=== PATIENT | male | born 1960 | race African-American/Black ===

== ENCOUNTER 2021-01-25 14:19 | Inpatient (IN) | payer MEDICAID ==
[~2021-01-25] VITALS: Ht 182.9 cm; Wt 81.6 kg
[2021-01-25 15:08] VITALS: BP 119/72
--- NOTE | 2021-01-25 15:10 | Diagnostic Imaging Report ---
Indication: Shortness of breath Technique: XRAY Chest 1v Comparison: None Findings: Heart size and mediastinal contours are within normal limits for AP technique. There is no focal airspace consolidation, pneumothorax or pleural effusion. Degenerative changes in the spine. Osseous structures demonstrate no acute abnormality. Impression: No radiographic evidence of acute cardiopulmonary disease.
[2021-01-25 15:11] LABS: BASOPHILS % (AUTO) 1.8 % (0.0-2.0); EOSINOPHILS % (AUTO) 0.1 % (0.0-3.0); HEMATOCRIT 35.1 % (42.0-52.0); LYMPHOCYTES % (AUTO) 10.1 % (20.0-45.0); MEAN CORPUSCULAR VOLUME 83 FL (80-99); MONOCYTES % (AUTO) 7.1 % (1.0-10.0); NEUTROPHILS % (AUTO) 80.9 % (45.0-75.0); PLATELET COUNT 210 K/UL (150-450); RED BLOOD COUNT 4.23 M/UL (4.70-6.10); RED CELL DISTRIBUTION WIDTH 13.4 % (11.6-14.8); WHITE BLOOD COUNT 11.3 K/UL (4.8-10.8)
[2021-01-25 15:19] LABS: INR 0.9 (0.9-1.1)
[2021-01-25 15:45] LABS: ALANINE AMINOTRANSFERASE 33 U/L (12-78); ALBUMIN 4.1 G/DL (3.4-5.0); ALBUMIN/GLOBULIN RATIO 1.1 (1.0-2.7); ALKALINE PHOSPHATASE 95 U/L (46-116); ANION GAP 13 mmol/L (5-15); ASPARTATE AMINO TRANSFERASE 9 U/L (15-37); BILIRUBIN,TOTAL 0.2 MG/DL (0.2-1.0); CALCIUM 10.4 MG/DL (8.5-10.1); CARBON DIOXIDE 24 MMOL/L (21-32); CHLORIDE 111 MMOL/L (98-107); CREATINE KINASE 98 U/L (26-308); CREATININE 1.5 MG/DL (0.55-1.30); POTASSIUM 3.9 MMOL/L (3.5-5.1); SODIUM 148 MMOL/L (136-145)
[2021-01-25 15:59] VITALS: BP 126/81
--- NOTE | 2021-01-25 16:03 | Emergency Room Report ---
History of Present Illness General Chief Complaint: Altered Mental Status Present Illness HPI Disclaimer: Please note that this report is being documented using [employer] technology. This can lead to erroneous entry secondary to incorrect interpretation by the dictating instrument. HPI: 60-year-old male denies any past medical history presents from a grocery store. Apparently patient was found stumbling and then face down at the grocery store. He denies any headache chest pain shortness of breath or abdominal pain. He does not recall falling. He is alert and oriented x2 on arrival. Presented by EMS. Allergies: Coded Allergies: No Known Allergies (Unverified , 01/25/21) COVID-19 Screening Contact w/high risk pt: No Experienced COVID-19 symptoms?: No COVID-19 Testing performed IT APPLICATION SUPPORT ANALYST: No Patient History Reviewed Nursing Documentation: PMH: Agreed; PSxH: Agreed Review of Systems All Other Systems: negative except mentioned in HPI Physical Exam Vital Signs Date Time Temp Pulse Resp B/P (MAP) Pulse Ox O2 Delivery O2 Flow Rate FiO2 01/25/21 14:32 98.1 122 18 145/92 (109) 98 Room Air Sp02 EP Interpretation: reviewed, normal General Appearance: well appearing, no apparent distress Head: normocephalic, other - Abrasion noted to face Eyes: bilateral eye PERRL, bilateral eye EOMI ENT: hearing grossly normal, moist mucus membranes, other - Dried blood noted in mouth Neck: full range of motion, supple Respiratory: lungs clear, normal breath sounds, no rhonchi, no respiratory distress, no retraction, no wheezing Cardiovascular #1: normal peripheral pulses, no murmur, tachycardia Gastrointestinal: non tender, soft, non-distended, no guarding Neurologic: alert, no focal defects, other - Oriented x2, moves all extremities equally, no focal neurologic deficits noted Skin: normal color, warm/dry, other - Patient's the bilateral knees Medical Decision Making ER Course MDM: Differential included but not limited to dehydration, diabetic hyperglycemia, electrolyte disturbance, syncope, closed head injury, Clinical course-IV cardiac monitoring pulse oximetry. Patient placed on 2 L nasal cannula. He was given IV fluid bolus. Laboratory studies demonstrated hyperglycemia with mild lactic acidosis, suspect some element of dehydration. H emoglobin was stable. Urine was negative for infection. Urine drug screen negative, alcohol negative. EKG showed sinus tachycardia. Unfortunately patient is a poor historian and denies any past medical history. His presentation most likely secondary to undiagnosed diabetes mellitus with dehydration and hyperglycemia. Will place on the telemetry floor for further observation and treatment. Patient given IV insulin in the ER. I did do a CT angiogram of the chest to evaluate for any PE and was grossly negative. CT scan of the brain showed no acute hemorrhage or infarct. Chest x-ray showed no acute infiltrate. Patient admitted under Dr. Andujar Labs - Laboratory Tests Test 01/25/21 14:50 01/25/21 14:55 01/25/21 16:46 01/25/21 16:47 White Blood Count 11.3 K/UL (4.8-10.8) H Red Blood Count 4.23 M/UL (4.70-6.10) L Hemoglobin 11.0 G/DL (14.2-18.0) L Hematocrit 35.1 % (42.0-52.0) L Mean Corpuscular Volume 83 FL (80-99) Mean Corpuscular Hemoglobin 26.1 PG (27.0-31.0) L Mean Corpuscular Hemoglobin Concent 31.4 G/DL (32.0-36.0) L Red Cell Distribution Width 13.4 % (11.6-14.8) Platelet Count 210 K/UL (150-450) Mean Platelet Volume 7.6 FL (6.5-10.1) Neutrophils (%) (Auto) 80.9 % (45.0-75.0) H Lymphocytes (%) (Auto) 10.1 % (20.0-45.0) L Monocytes (%) (Auto) 7.1 % (1.0-10.0) Eosinophils (%) (Auto) 0.1 % (0.0-3.0) Basophils (%) (Auto) 1.8 % (0.0-2.0) Prothrombin Time 10.5 SEC (9.30-11.50) Prothrombin Time INR 0.9 (0.9-1.1) Activated Partial Thromboplast Time 21 SEC (23-33) L Sodium Level 148 MMOL/L (136-145) H Potassium Level 3.9 MMOL/L (3.5-5.1) Chloride Level 111 MMOL/L (98-107) H Carbon Dioxide Level 24 MMOL/L (21-32) Anion Gap 13 mmol/L (5-15) Blood Urea Nitrogen 31 mg/dL (7-18) H Creatinine 1.5 MG/DL (0.55-1.30) H Estimated Glomerular Filtration Rate 57.4 mL/min (>60) Glucose Level 443 MG/DL (74-106) H Lactic Acid Level 3.00 mmol/L (0.4-2.0) H Calcium Level 10.4 MG/DL (8.5-10.1) H Magnesium Level 2.6 MG/DL (1.8-2.4) H Total Bilirubin 0.2 MG/DL (0.2-1.0) Aspartate Amino Transferase (AST) 9 U/L (15-37) L Alanine Aminotransferase (ALT) 33 U/L (12-78) Alkaline Phosphatase 95 U/L (46-116) Total Creatine Kinase 98 U/L (26-308) Troponin I 0.005 ng/mL (0.000-0.056) Total Protein 7.7 G/DL (6.4-8.2) Albumin 4.1 G/DL (3.4-5.0) Globulin 3.6 g/dL Albumin/Globulin Ratio 1.1 (1.0-2.7) Serum Alcohol < 3 mg/dL POC Whole Blood Glucose Pending Pending Urine Color Pale yellow Urine Appearance Clear Urine pH 5 (4.5-8.0) Urine Specific [place] 1.015 (1.005-1.035) Urine Protein Negative (NEGATIVE) Urine Glucose (UA) 4+ (NEGATIVE) H Urine Ketones 1+ (NEGATIVE) H Urine Blood Negative (NEGATIVE) Urine Nitrite Negative (NEGATIVE) Urine Bilirubin Negative (NEGATIVE) Urine Urobilinogen Normal MG/DL (0.0-1.0) Urine Leukocyte Esterase Negative (NEGATIVE) Urine Opiates Screen Negative (NEGATIVE) Urine Barbiturates Screen Negative (NEGATIVE) Phencyclidine (PCP) Screen Negative (NEGATIVE) Urine Amphetamines Screen Negative (NEGATIVE) Urine Benzodiazepines Screen Negative (NEGATIVE) Urine Cocaine Screen Negative (NEGATIVE) Urine Marijuana (THC) Screen Negative (NEGATIVE) On reevaluation: Tachycardia improved Plan-admission to the telemetry floor EKG Diagnostic Results Rate: tachycardiac Rhythm: other - Sinus tachycardia ST Segments: no acute changes Rhythm Strip Diag. Results EP Interpretation: yes Rate: 112 Rhythm: no PVC's, no ectopy Chest X-Ray Diagnostic Results Chest X-Ray Diagnostic Results : # of Views/Limited/Complete: 1 View Indication: Shortness of Breath Interpretation: no consolidation, no effusion, no pneumothorax Impression: No acute disease Electronically Signed by: Emanuel Choi MD CT/MRI/US Diagnostic Results CT/MRI/US Diagnostic Results #1: Imaging Test Ordered: CT scan of the brain Impression No acute hemorrhage or infarct CT/MRI/US Diagnostic Results #2: Imaging Test Ordered: CT angio chest Impression IMPRESSION: No PE within limits due to motion. Extensive coronary atherosclerosis. Emphysema. Subcentimeter nodules along the left oblique fissure. Recommend follow-up CT in 6-12 months. 1 cm hypodensity in the pancreatic body-tail measures near water density, likely cystic. Nonemergent MRI could further assess. Last Vital Signs Date Time Temp Pulse Resp B/P (MAP) Pulse Ox O2 Delivery O2 Flow Rate FiO2 01/25/21 15:08 99.0 122 22 119/72 89 Room Air Disposition: ADMITTED INPATIENT Condition: Serious Scripts Unable to Obtain Active Prescriptions or Reported Meds Referrals: NOT CHOSEN IPA/,REFERRING (PCP) Emanuel Choi M.D. Jan 25, 2021 16:03
--- NOTE | 2021-01-25 16:04 | Diagnostic Imaging Report ---
Indication: Altered mental status Technique: Continuous helical CT scanning of the head was performed utilizing automated exposure control without intravenous contrast material. Axial and coronal reconstructions were obtained. Comparison: None CT dose: Total DLP 999.2 mGycm; CTDI vol 53.4 mGy Findings: There is no acute intracranial hemorrhage, mass effect or cortical edema. The ventricles, cisterns and sulci are prominent consistent with atrophy. Periventricular hypoattenuation is seen, a nonspecific finding. Chronic-appearing infarct in the left superior caudate. Visualized mastoid air cells and paranasal sinuses are unremarkable. No focal lesions of the bony calvarium or soft tissues of the scalp are seen. IMPRESSION: No evidence of acute intracranial hemorrhage, mass effect or cortical edema. MRI recommended for more sensitive evaluation as clinically indicated. Atrophy and nonspecific periventricular hypoattenuation suggestive of chronic ischemic microvascular changes. Chronic appearing lacunar infarct in the left superior caudate. The CT scanner at [facility] is accredited by the [employer] and the scans are performed using protocols designed to limit radiation exposure to as low as reasonably achievable to attain images of sufficient resolution adequate for diagnostic evaluation.
[2021-01-25 16:23] LABS: BLOOD UREA NITROGEN 31 mg/dL (7-18)
[2021-01-25 16:48] VITALS: BP 144/80
[2021-01-25 17:30] LABS: APPEARANCE,URINE CLEAR; BILIRUBIN, URINE NEGATIVE (NEGATIVE); COLOR,URINE PALE YELLOW; GLUCOSE, URINE (UA) 4+ (NEGATIVE); KETONES,URINE 1+ (NEGATIVE); LEUKOCYTE ESTERASE ,URINE NEGATIVE (NEGATIVE); NITRITE,URINE NEGATIVE (NEGATIVE); PH,URINE 5 (4.5-8.0); PROTEIN,URINE NEGATIVE (NEGATIVE); UROBILINOGEN,URINE NORMAL MG/DL (0.0-1.0)
[2021-01-25] MEDS ORDERED: Insulin Human Regular 100units/ml 3ml IV ONE (17:30)
--- NOTE | 2021-01-25 18:58 | Diagnostic Imaging Report ---
EXAM: CT Angiography Chest With Intravenous Contrast CLINICAL HISTORY: SOB TECHNIQUE: Axial computed tomographic angiography images of the chest with intravenous contrast. CTDI is 8.1 mGy and DLP is 331.4 mGy-cm. One or more of the following dose reduction techniques were used: automated exposure control, adjustment of the mA and/or kV according to patient size, use of iterative reconstruction technique. MIP reconstructed images were created and reviewed. COMPARISON: No relevant prior studies available. FINDINGS: No clear PE on exam that is mildly limited by bolus timing. Mild aortic atherosclerosis. No dissection or other acute syndrome. No aneurysm. Extensive coronary atherosclerosis. No significant pericardial or pleural effusion. No pneumothorax. Nodules along the left oblique fissure, largest measuring 6 mm on series 9, image 69. Recommend follow-up CT in 6-12 months. Subsegmental basilar atelectasis. Emphysema. No inflammatory/infectious consolidation. Upper pole right renal hypodensities incompletely assessed, but most likely a cyst. 1 cm hypodensity in the pancreatic body-tail on series 5, image 23. This measures near water density, likely cystic. Nonemergent MRI could further assess. Chronic right rib deformities. No acute fracture. IMPRESSION: No PE within limits due to motion. Extensive coronary atherosclerosis. Emphysema. Subcentimeter nodules along the left oblique fissure. Recommend follow-up CT in 6-12 months. 1 cm hypodensity in the pancreatic body-tail measures near water density, likely cystic. Nonemergent MRI could further assess.
[2021-01-25] MEDS ORDERED: Acetaminophen 500mg (ES) tab ORAL PRN (21:15)
[2021-01-25] MEDS: NovoLOG Insulin Flexpen SUBQ SCH (23:27)
[2021-01-26] VITALS: BP 145/92
[2021-01-26 04:00] VITALS: BP 142/87
[2021-01-26] MEDS: NovoLOG Insulin Flexpen SUBQ SCH ×4 (06:22→20:25)
[2021-01-26] MEDS: GlipiZIDE 5mg tab ORAL SCH ×2 (06:25→17:34)
[2021-01-26 08:00] VITALS: BP 154/97
--- NOTE | 2021-01-26 10:17 | Consultation ---
Consult Note Consult Note I'm asked to evaluate the patient at the request of Dr. Woodard for renal failure and fluid and electrolyte management Chief Complaint: Altered Mental Status HPI: 60-year-old male denies any past medical history presents from a grocery store. Apparently patient was found stumbling and then face down at the grocery store. He denies any headache chest pain shortness of breath or abdominal pain. He does not recall falling. He is alert and oriented x2 on arrival. Presented by EMS. Allergies: No Known Allergies (Unverified , 01/25/21) COVID-19 Screening Contact w/high risk pt: No Experienced COVID-19 symptoms?: No COVID-19 Testing performed HEAVY TRUCK TECHNICIAN: No Vital Signs ER: Date Time Temp Pulse Resp B/P (MAP) Pulse Ox O2 Delivery O2 Flow Rate FiO2 01/25/21 14:32 98.1 122 18 145/92 (109) 98 Room Air PHYSICAL EXAMINATION: VITAL SIGNS: Temperature 97.9, pulse 99, blood pressure 154/97. GENERAL APPEARANCE: Well developed, in no acute distress. HEAD AND NECK: Has bruise in the left eye. HEART: Normal rate. LUNGS: Clear. ABDOMEN: Soft. EXTREMITIES: No significant edema. NEUROLOGIC: He is awake, alert, responsive. LABORATORY AND DIAGNOSTIC DATA: Sodium 148, potassium 3.9, chloride 111, bicarb 24, BUN 31, creatinine 1.5, glucose is 443. WBC 11.3, hemoglobin 11, hematocrit 35.1, platelets 210. Blood culture growing gram-positive cocci in cluster. Patient had CT angiogram of the chest that showed no pulmonary emboli, showed emphysema. Has 1 cm pancreatic lesion, likely cyst. Urine toxicology was negative. UA showed ketones 1+, glucose 4+. . Assessment/Plan Renal failure Acute encephalopathy, likely metabolic Diabetes mellitus [id number] Electrolyte imbalance Hypertension Anemia Suggestions Hydration with hypotonic solution Keep the blood pressure and blood sugar in check Anemia work-up Start aspirin, beta-blockers, gastric support PPI and stool softener Per orders Head CT: Atrophy and nonspecific periventricular hypoattenuation suggestive of chronic ischemic microvascular changes. CT chest with contrast No PE within limits due to motion. Extensive coronary atherosclerosis. Emphysema. Subcentimeter nodules along the left oblique fissure. Recommend follow-up CT in 6-12 months. 1 cm hypodensity in the pancreatic body-tail measures near water density, likely cystic. Nonemergent MRI could further assess. Jorje Paz MD Jan 26, 2021 10:17
--- NOTE | 2021-01-26 10:31 | Consultation ---
Consult Note Consult Note DATE OF CONSULTATION: 01/26/2021 CONSULTING PHYSICIAN: Marv Chen MD. ATTENDING PHYSICIAN: Dr. Andujar REASON FOR CONSULTATION: Respiratory distress on arrival, altered mental status and risk of aspiration, abnormal CT of chest HISTORY OF PRESENT ILLNESS: This is a 60-year-old male with no reported past medical history who presented to the ED from a grocery stroller status post fall. Apparently patient was found stumbling and then face down at the grocery store. Patient was alert and oriented x2 on arrival. Patient was placed on 2 L nasal cannula in the ER and was given IV fluid bolus. Laboratory studies demonstrated hyperglycemia with mild lactic acidosis. Urine was negative for infection. Urine drug screen was negative, alcohol negative. CT angiogram of the chest was negative for PE. CT of brain showed no acute hemorrhage or infarct. Chest x-ray showed no acute infiltrate. Patient was admitted to the hospital for further management. PAST MEDICAL HISTORY: Unreliable MEDICATIONS: Full list of home medications not available at this time ALLERGIES: No known allergies FAMILY HISTORY: Unreliable PERSONAL/SOCIAL HISTORY: Patient reports smoking history, quit 6 years ago REVIEW OF SYSTEMS: Unreliable PHYSICAL EXAMINATION: VITAL SIGNS: Blood pressure 154/97, heart rate 99, respiratory rate 20, weight 81 kg, height 182 cm. General: Patient sitting on a chair outside of his room, normal work of breathing on room air, NAD HEENT: Head exam reveals that the head is normocephalic, atraumatic without deformity or unusual swelling. Pupils are PERRLA. Dried blood noted in the mouth, abrasion and contusion noted on the left face CHEST AND LUNGS: Reveals clear, normal, symmetrical breath sounds with no adventitious sounds. CARDIOVASCULAR: Reveals normal S1, S2 without murmurs, rubs, or clicks. ABDOMEN: Soft with no tenderness or organomegaly. RECTAL: Deferred. MUSCULOSKELETAL: There is no tenderness to palpation. Range of motion is normal. NEUROLOGICAL: Alert and oriented x2, nonfocal LABORATORY DATA: Laboratory testing shows WBC 11.3, hemoglobin 11.0, hematocrit 35.1. Chemistries show sodium 148, chloride 111, BUN 31, creatinine 1.5, glucose 443, calcium 10.4, magnesium 2.6 Assessment/Plan 1. Hypoxic respiratory distress on arrival -Now stable on room air; provide supplemental oxygen as needed 2. Lung nodules on CT -Subcentimeter nodules -> based on the size, recommend a follow-up CT chest in 6-12 months per Fleischner Society guidelines 3. Emphysematous changes on CT chest - patient reports smoking history, quit 6 years ago - Patient educated on smoking cessation 4. CARRIE 5. Hyperglycemia 6. Risk of aspiration - monitor for fever - f/u CXR if indicated The care for this patient was discussed with my supervising physician. Time spent for this case was approximately 31 minutes. Stephane Palacios Jan 26, 2021 10:31
--- NOTE | 2021-01-26 10:38 | Consultation ---
Consult Note Consult Note DATE OF CONSULTATION: 01/26/2021 NEUROLOGY CONSULTATION REQ MD: Dr. Andujar REASON FOR REFERRAL: Syncope HPI: This is a pleasant 60 year old AA male patient who is seated at the nursing station. He is alert to his name and is confused to time, and place, he remembers fallling down. He states that he lives with his Mother Ruth Bedoya and gave me her number however number is disconnected and no number on file. RN also has no number for contact. He [place] [facility] [place] down at the supermarket. It was reported that he had a syncopal episode, however the details are unknown. Pt is a poor historian and most of the information was obtained from the chart and the bedside RN.We were consulted for syncope. He denies headache, dizzziness, chest pain and no sob. Past Medical history: Diabetes Past Surgery History: Unknown Family History: Unknown Social History: Lives with mother? ROS A 14 point review of system done pertinent positives in hpi PE Vital signs stable Left Orbit abrasion General: No acute distress calm and cooperative Neuro: Awake Alert to himself disoriented to place and time No insight to situation, Comprehension: not intact. Language parameters intact. Cranial nerves II-XII tested PERRLA, No nystagmus with gaze. No facial droop or asymmetry noted Tongue is midline. Hearing intact Motor: No involuntary movements, Bilat upper extremities 3/5, lower extremities 3/5 Sensation intact. gait not assessed LAB Reviewed IMAGING: CT Head: No evidence of acute intracranial hemorrhage, mass effect or cortical edema. MRI recommended for more sensitive evaluation as clinically indicated. Atrophy and nonspecific periventricular hypoattenuation suggestive of chronic ischemic microvascular changes. Chronic appearing lacunar infarct in the left superior caudate. ASSESSMENT AND REC'S 1. Old lacunar Infarct --> CT head noted, will get MRI Brain and MRA Head and Neck 2. AMS, unknown etiology --> CT head noted as above --> urine tox screen , get socail worker eval to contact mother for more history. 3. Fall --> unknown etiology, order pt and ot 4. Questionable Syncope --> was found down at the grocery store. 5. Diabetes Thank you for allowing us to participate in patient's care, plan of care was discussed with Dr. Jeff White who agrees. Delores Rivera AMUSEMENT PARK ENTERTAINER Jan 26, 2021 10:38
[2021-01-26] MEDS: Aspirin Baby 81mg ORAL SCH (10:43)
[2021-01-26 11:09] LABS: ALANINE AMINOTRANSFERASE 34 U/L (12-78); ALBUMIN 3.4 G/DL (3.4-5.0); ALBUMIN/GLOBULIN RATIO 1.1 (1.0-2.7); ALKALINE PHOSPHATASE 81 U/L (46-116); ANION GAP 10 mmol/L (5-15); ASPARTATE AMINO TRANSFERASE 12 U/L (15-37); BILIRUBIN,TOTAL 0.3 MG/DL (0.2-1.0); BLOOD UREA NITROGEN 14 mg/dL (7-18); CARBON DIOXIDE 24 MMOL/L (21-32); CHLORIDE 109 MMOL/L (98-107); CREATININE 0.9 MG/DL (0.55-1.30); POTASSIUM 3.6 MMOL/L (3.5-5.1); SODIUM 143 MMOL/L (136-145)
--- NOTE | 2021-01-26 11:19 | Cardiac Electrophysiology PN ---
Subjective Subjective [id number] Objective Last 24 Hour Vital Signs Date Time Temp Pulse Resp B/P (MAP) Pulse Ox O2 Delivery O2 Flow Rate FiO2 01/26/21 10:43 99 154/97 01/26/21 09:00 Room Air 01/26/21 08:00 97.5 99 20 154/97 (116) 97 01/26/21 07:41 105 01/26/21 04:00 98.1 99 20 142/87 (105) 97 01/26/21 04:00 99 01/26/21 00:00 97.9 102 22 145/92 (109) 97 01/26/21 00:00 95 01/25/21 21:00 Room Air 01/25/21 20:05 Room Air 01/25/21 20:00 114 01/25/21 16:48 108 20 144/80 97 Nasal Cannula 2.0 01/25/21 15:59 112 20 126/81 100 Nasal Cannula 3.0 01/25/21 15:08 99.0 122 22 119/72 89 Room Air 01/25/21 15:00 118 22 Room Air 89 01/25/21 14:32 98.1 122 18 145/92 (109) 98 Room Air Intake and Output 01/25/21 01/26/21 19:00 07:00 Intake Total 2400 ml Output Total 600 ml 700 ml Balance 1800 ml -700 ml IV Total 2400 ml Output Urine Total 600 ml 700 ml # Voids 2 Laboratory Tests Test 01/25/21 14:50 01/25/21 14:55 01/25/21 16:46 01/25/21 16:47 White Blood Count 11.3 K/UL (4.8-10.8) H Red Blood Count 4.23 M/UL (4.70-6.10) L Hemoglobin 11.0 G/DL (14.2-18.0) L Hematocrit 35.1 % (42.0-52.0) L Mean Corpuscular Volume 83 FL (80-99) Mean Corpuscular Hemoglobin 26.1 PG (27.0-31.0) L Mean Corpuscular Hemoglobin Concent 31.4 G/DL (32.0-36.0) L Red Cell Distribution Width 13.4 % (11.6-14.8) Platelet Count 210 K/UL (150-450) Mean Platelet Volume 7.6 FL (6.5-10.1) Neutrophils (%) (Auto) 80.9 % (45.0-75.0) H Lymphocytes (%) (Auto) 10.1 % (20.0-45.0) L Monocytes (%) (Auto) 7.1 % (1.0-10.0) Eosinophils (%) (Auto) 0.1 % (0.0-3.0) Basophils (%) (Auto) 1.8 % (0.0-2.0) Prothrombin Time 10.5 SEC (9.30-11.50) Prothromb Time International Ratio 0.9 (0.9-1.1) Activated Partial Thromboplast Time 21 SEC (23-33) L Sodium Level 148 MMOL/L (136-145) H Potassium Level 3.9 MMOL/L (3.5-5.1) Chloride Level 111 MMOL/L (98-107) H Carbon Dioxide Level 24 MMOL/L (21-32) Anion Gap 13 mmol/L (5-15) Blood Urea Nitrogen 31 mg/dL (7-18) H Creatinine 1.5 MG/DL (0.55-1.30) H Estimat Glomerular Filtration Rate 57.4 mL/min (>60) Glucose Level 443 MG/DL (74-106) H Lactic Acid Level 3.00 mmol/L (0.4-2.0) H Calcium Level 10.4 MG/DL (8.5-10.1) H Magnesium Level 2.6 MG/DL (1.8-2.4) H Total Bilirubin 0.2 MG/DL (0.2-1.0) Aspartate Amino Transf (AST/SGOT) 9 U/L (15-37) L Alanine Aminotransferase (ALT/SGPT) 33 U/L (12-78) Alkaline Phosphatase 95 U/L (46-116) Total Creatine Kinase 98 U/L (26-308) Troponin I 0.005 ng/mL (0.000-0.056) Total Protein 7.7 G/DL (6.4-8.2) Albumin 4.1 G/DL (3.4-5.0) Globulin 3.6 g/dL Albumin/Globulin Ratio 1.1 (1.0-2.7) Serum Alcohol < 3 mg/dL POC Whole Blood Glucose Pending Pending Urine Color Pale yellow Urine Appearance Clear Urine pH 5 (4.5-8.0) Urine Specific [place] 1.015 (1.005-1.035) Urine Protein Negative (NEGATIVE) Urine Glucose (UA) 4+ (NEGATIVE) H Urine Ketones 1+ (NEGATIVE) H Urine Blood Negative (NEGATIVE) Urine Nitrite Negative (NEGATIVE) Urine Bilirubin Negative (NEGATIVE) Urine Urobilinogen Normal MG/DL (0.0-1.0) Urine Leukocyte Esterase Negative (NEGATIVE) Urine Opiates Screen Negative (NEGATIVE) Urine Barbiturates Screen Negative (NEGATIVE) Phencyclidine (PCP) Screen Negative (NEGATIVE) Urine Amphetamines Screen Negative (NEGATIVE) Urine Benzodiazepines Screen Negative (NEGATIVE) Urine Cocaine Screen Negative (NEGATIVE) Urine Marijuana (THC) Screen Negative (NEGATIVE) Test 01/26/21 09:20 01/26/21 11:00 Sodium Level 143 MMOL/L (136-145) Potassium Level 3.6 MMOL/L (3.5-5.1) Chloride Level 109 MMOL/L (98-107) H Carbon Dioxide Level 24 MMOL/L (21-32) Anion Gap 10 mmol/L (5-15) Blood Urea Nitrogen 14 mg/dL (7-18) Creatinine 0.9 MG/DL (0.55-1.30) Estimat Glomerular Filtration Rate > 60 mL/min (>60) Glucose Level 414 MG/DL (74-106) H Hemoglobin A1c 11.8 % (4.3-6.0) H Pending Calcium Level 9.0 MG/DL (8.5-10.1) Total Bilirubin 0.3 MG/DL (0.2-1.0) Aspartate Amino Transf (AST/SGOT) 12 U/L (15-37) L Alanine Aminotransferase (ALT/SGPT) 34 U/L (12-78) Alkaline Phosphatase 81 U/L (46-116) Total Protein 6.5 G/DL (6.4-8.2) Albumin 3.4 G/DL (3.4-5.0) Globulin 3.1 g/dL Albumin/Globulin Ratio 1.1 (1.0-2.7) Uric Acid Pending Triglycerides Level Pending Cholesterol Level Pending LDL Cholesterol Pending HDL Cholesterol Pending Cholesterol/HDL Ratio Pending Microbiology Date/Time Source Procedure Growth Status 01/25/21 14:55 Blood Blood Culture - Preliminary Resulted Massimo Escobar MD Jan 26, 2021 11:19
[2021-01-26 11:30] LABS: CHOLESTEROL 159 MG/DL (< 200); HDL CHOLESTEROL 35 MG/DL (40-60); TRIGLYCERIDES 177 MG/DL (30-150)
[2021-01-26 12:00] VITALS: BP 125/75
[2021-01-26] MEDS: Docusate 100mg cap ORAL SCH ×2 (12:00→17:13)
--- NOTE | 2021-01-26 12:29 | Consultation ---
DATE OF CONSULTATION: 01/26/2021 ENDOCRINOLOGY CONSULTATION CONSULTING PHYSICIAN: Cholo Solano MD REFERRING PHYSICIAN: Tylor Andujar MD REASON FOR CONSULTATION: Diabetes management. HISTORY OF PRESENT ILLNESS: The patient is a 60-year-old male without any past medical history who presented to the hospital after he was found down at a grocery store . The patient was brought in by paramedics, was noted to have a glucose of 443 and lactic acid of 3. He was given IV fluid and IV insulin and admitted to the floor for observation and treatment. There was no evidence of ketoacidosis. The patient denies a history of diabetes. He is not taking any medications. He is a poor historian and somnolent. PAST MEDICAL HISTORY: None. PAST SURGICAL HISTORY: None. ALLERGIES TO MEDICATIONS: None. FAMILY HISTORY: Noncontributory. SOCIAL HISTORY: Denies smoking, alcohol, or drug use. REVIEW OF SYSTEMS: Limited. As noted in the HPI. LABORATORY VALUES: His sodium 148, potassium 3.9, chloride 111, bicarb 24, BUN 31, creatinine 1.5, glucose of 442, lactic acid 3, calcium 10.4, and magnesium of 2.6. PHYSICAL EXAMINATION: VITAL SIGNS: Blood pressure 142/87, pulse of 99, temperature 98.1, respiratory rate of 20. HEENT: Pupils are equal and reactive to light. Sclerae nonicteric. NECK: No JVD. HEART: Regular. LUNGS: Clear. ABDOMEN: Positive bowel sounds. EXTREMITIES: No clubbing, cyanosis, or edema. DIAGNOSES: 1. New-onset diabetes. 2. Lactic acidosis. PLAN: 1. We can't start metformin since the patient's lactic acid is already high. 2. Start Glipizide 5 mg b.i.d. 3. Diabetic diet. 4. NovoLog sliding scale a.c. and at bedtime. 5. Hypoglycemia protocol is in order. 6. Check hemoglobin A1c. 7. Further adjustment according to the glucose. Thank you, Dr. Andujar, for the courtesy of this consultation. Cholo Solano M.D. DR: REMY/n JOB#: [id number] CC: BOYD
[2021-01-26] MEDS ORDERED: Vancomycin 1.5gm/300ml Premix IVPB ONE (13:00)
[2021-01-26 15:49] VITALS: BP 156/88
--- NOTE | 2021-01-26 17:26 | Diagnostic Imaging Report ---
EXAM: MRI MRI Brain no Contrast COMPARISON: None HISTORY: Confusion. TECHNIQUE: MR scan of the brain includes sagittal T1, axial T1, T2, FLAIR, diffusion-weighted and gradient sequences. FINDINGS: Mild white matter microangiopathic changes noted. There are old tiny lacunar infarcts noted in the basal ganglia bilaterally. No acute infarct is noted. On gradient sequence, there are 2 tiny punctate foci of susceptibility artifact is noted in the arita radiata bilaterally. These may be tiny foci of old petechial hemorrhages. Ventricles and cisterns appear unremarkable. Brainstem and posterior fossa appear unremarkable. The sella and parasellar regions are normal. Normal flow voids identified in the carotid siphons. Sinuses are unremarkable. Small amount of fluid noted in the right mastoid air cell. IMPRESSION: MILD AGE-RELATED SENESCENT CHANGES. 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 TINY FOCI OF SUSCEPTIBILITY ARTIFACT IS NOTED IN THE ARITA RADIATA REGION BILATERALLY WHICH COULD BE A TINY OLD PETECHIAL HEMORRHAGES. NO ACUTE INFARCT, HEMORRHAGE, MASS EFFECT OR SHIFT. MILD RIGHT MASTOID AIRSPACE DISEASE.
--- NOTE | 2021-01-26 17:32 | Diagnostic Imaging Report ---
EXAM: ULTRASOUND Carotid-Vert Duplex Scan-BILAT CLINICAL HISTORY: Reason For Exam: SYNCOPE. COMPARISON: None FINDINGS: Bilateral plaque formations noted. Velocities are as follow: Right: CCA= 86 cm/sec ICA = 59 cm/sec ECA = 51 cm/sec Left: CCA = 78 cm/sec ICA= 53 cm/sec ECA = 62 cm/sec ICA/CCA ratio are 0.7 on the right and 1.1 on the left. Antegrade flow is identified in the vertebral arteries bilaterally. IMPRESSION: NO HEMODYNAMICALLY SIGNIFICANT STENOSIS. Degree of stenosis is derived from SRU criteria.
--- NOTE | 2021-01-26 18:14 | Consultation ---
DATE OF CONSULTATION: 01/26/2021 CARDIOLOGY CONSULTATION CONSULTING PHYSICIAN: Massimo Escobar MD REFERRING PHYSICIAN: Tylor Andujar MD REASON FOR CONSULTATION: Syncope. HISTORY OF PRESENT ILLNESS: The patient is a 60-year-old gentleman with history of diabetes, who is lives with his mother , who was brought to the emergency room after he was found down at the supermarket. It was reported that he had a syncopal episode, but details of which is not clear. The patient is a very poor historian, is unable to provide any meaningful information. There is also some bruising around his left eye. Urine drug screen was negative. Alcohol was negative. CT angiogram of the chest was negative for pulmonary embolism. CT of the brain showed no acute hemorrhage or infarct. Chest x-ray showed no acute infiltrate. The patient was admitted and a Cardiology consultation was obtained for further evaluation and management. REVIEW OF SYSTEMS: Negative other than what was mentioned in history of present illness. PAST MEDICAL HISTORY: As mentioned above. FAMILY HISTORY: Noncontributory. SOCIAL HISTORY: Quit smoking 6 years ago. Lives at home with his mother. PHYSICAL EXAMINATION: VITAL SIGNS: Show blood pressure of 154/97, pulse is 99, respirations 18, temperature 97.5. HEAD AND NECK: Shows no JVD. He has bruising around his left eye. LUNGS: Clear. CARDIOVASCULAR: Shows regular S1 and S2 with no gallop or murmur. ABDOMEN: Soft. EXTREMITIES: No pitting edema. LABORATORY AND DIAGNOSTIC DATA: His EKG shows sinus tachycardia at [address]-T wave abnormalities. LABORATORY DATA: Labs show white count 11.7, , hematocrit 35, platelet count of 210. Sodium 142, potassium 3.6, BUN of 14, creatinine 0.9, and a glucose of 414. His urine toxicology screen was negative. INR is 0.9. ASSESSMENT AND PLAN: 1. Syncopal episodes. Etiology is not clear. EKG does not show any acute ischemic changes. There is no evidence of bradycardia or heart block on the telemetry. The patient is not dehydrated. BUN of 14, creatinine 0.9. His glucose however is uncontrolled at 414. Urine toxicology screen is negative. We will get a carotid duplex and get an echocardiogram for further evaluation and completely rule out [place] protocol. It is of note his first troponin is negative. However, it is of note that on presentation sodium was 148, BUN of 31, creatinine 1.5 that he might have been dehydrated at that time, even though that has been corrected. The patient also is being followed by Neurology, Dr. Paz. 2. Hypertension, on metoprolol 25 mg, place the patient on telemetry. 3. Diabetes, on glipizide. Thank you very much for allowing me to participate in the care of this patient. Please do not hesitate to contact me for any questions regarding my evaluation. Sincerely, Massimo Escobar M.D. DR: MINDY JOB#: [id number] CC:
--- NOTE | 2021-01-26 18:29 | Consultation ---
DATE OF CONSULTATION: 01/26/2021 INFECTIOUS DISEASE CONSULTATION CONSULTING PHYSICIAN: Octavio Allen MD PRIMARY ATTENDING: Tylor Andujar MD REASON FOR CONSULTATION: Bacteremia and likely sepsis. HISTORY OF PRESENT ILLNESS: This is a 60-year-old male admitted yesterday. He was found face down in a grocery store floor. Poor historian, does not remember what happened. He was found to have borderline leukocytosis of 11.3. Has tachycardia with pulse rate of 122. Has diabetes mellitus with hyperglycemia. Has hypercalcemia, acute renal failure. PAST MEDICAL HISTORY: He admits he has diabetes and hypertension. He was on oral hypoglycemic agent prior to admission. ALLERGIES: No known drug allergies. MEDICATIONS: Insulin, metoprolol, Protonix, Colace, aspirin, glipizide, Tylenol. SOCIAL HISTORY: Single. Denies alcohol, drug abuse, or smoking. REVIEW OF SYSTEMS: Has no complaints. PHYSICAL EXAMINATION: VITAL SIGNS: Temperature 97.9, pulse 99, blood pressure 154/97. GENERAL APPEARANCE: Well developed, in no acute distress. HEAD AND NECK: Has bruise in the left eye. HEART: Normal rate. LUNGS: Clear. ABDOMEN: Soft. EXTREMITIES: No significant edema. NEUROLOGIC: He is awake, alert, responsive. LABORATORY AND DIAGNOSTIC DATA: Sodium 148, potassium 3.9, chloride 111, bicarb 24, BUN 31, creatinine 1.5, glucose is 443. WBC 11.3, hemoglobin 11, hematocrit 35.1, platelets 210. Blood culture growing gram-positive cocci in cluster. Patient had CT angiogram of the chest that showed no pulmonary emboli, showed emphysema. Has 1 cm pancreatic lesion, likely cyst. Urine toxicology was negative. UA showed ketones 1+, glucose 4+. IMPRESSION: Positive blood culture. Patient had borderline leukocytosis, tachycardia, and lactic acidosis. Likely has systemic inflammatory response, sepsis. Has hypercalcemia. Has acute renal failure, hypertension, uncontrolled diabetes mellitus. Has evidence of old lacunar infarct, altered mental status, fall. RECOMMENDATION: We will start patient on IV vancomycin. We will follow up the culture. Patient will have an MRI of the brain. At the end of my exam, I thank Dr. Andujar for involving me in the care of this patient. Octavio Allen M.D. DR: ANDREW JOB#: [id number] CC: BOYD
[2021-01-26 20:00] VITALS: BP 144/96
[2021-01-26] MEDS: LORazepam Inj 2mg/ml 1ml IVP PRN (21:34)
--- NOTE | 2021-01-26 21:59 | History and Physical Report ---
DATE OF ADMISSION: 01/25/2021 HISTORY OF PRESENT ILLNESS: Patient is admitted for altered mental status, syncope. Patient also has elevated blood sugar and tachycardia and acute renal failure and dehydration. Heart rate went up to 120. Patient's sugar was above 500. CT of the brain according to ER doctor was negative. Patient also admitted for azotemia. Patient feels weak. Denies nausea, vomiting, or diarrhea. Denies fever or chills. Does not remember the details. Denies headache. Denies cough. Denies sore throat. Patient also is confused. Denies headache or chest pain. Denies shortness of breath. PAST MEDICAL HISTORY: Significant for hypertension, NIDDM, constipation, GERD. PAST SURGICAL HISTORY: None. ALLERGIES: No known allergies. MEDICATIONS: Insulin, lisinopril, Protonix, docusate, and glipizide. FAMILY HISTORY: Noncontributory. SOCIAL HISTORY: Denies history of alcohol abuse. Denies history of drug abuse. Denies history of smoking. PHYSICAL EXAMINATION: VITAL SIGNS: Temperature 97.4, pulse is 100, blood pressure 125/75. HEENT: PERRLA. NECK: Supple. No lymphadenopathy. CHEST: Clear to auscultation CARDIOVASCULAR: Regular rate and rhythm. No murmurs or extra sounds. GASTROINTESTINAL: Soft, nontender, nondistended. No organomegaly. EXTREMITIES: No edema. CENTRAL NERVOUS SYSTEM: Confused, poor historian, and does not follow neurological exam. LABORATORY DATA: WBC of 11.3, hemoglobin of 11, platelets of 210. Sodium 143, potassium 3.6, BUN of 14, creatinine 0.9, glucose of 414. ASSESSMENT: Altered mental status, syncope, elevated blood sugar, tachycardia, acute renal failure, dehydration. I have basically consulted Dr. White, Dr. Paz, Dr. Solano, and Dr. Octavio Allen as well as Dr. Puckett, Dr. Escobar, and Dr. Marv Chen to help with the management of the syncope to find out why patient has syncopal episode as well as to bring down the sugar as well as to bring down the heart rate and as well as to improve the kidney function with IV fluids. I will follow the patient closely. Tylor Andujar M.D. DR: BROWN JOB#: [id number] CC:
--- NOTE | 2021-01-26 22:04 | Cardiology Report ---
APPROVED REPORT EXAM: Two-dimensional and M-mode echocardiogram with Doppler and color Doppler. INDICATION Syncope M-Mode DIMENSIONS IVSd1.4 (0.7-1.1cm)Left Atrium (MM)1.5 (1.6-4.0cm) LVDd5.4 (3.5-5.6cm)Aortic Root3.4 (2.0-3.7cm) PWd1.2 (0.7-1.1cm)Aortic Cusp Exc.3.4 (1.5-2.0cm) IVSs1.7 cmEPSS1.0 (>1.0cm) LVDs3.8 (2.5-4.0cm) PWs1.9 cm <Conclusion> Technically difficult study due to poor acoustical windows. Images obtained from subcoatal views. M-mode measurements of left ventricle not obtainable due to cardiac position (angle) Normal left ventricular chamber size, systolic function. Left ventricular ejection fraction grossly estimated to be 55-60 %. Study quality precludes accurate assessment of regional wall motion. No evidence of left ventricular hypertrophy. No evidence of pericardial effusion. All other cardiac chamber sizes are within normal limits. Focal aortic valve sclerosis with adequate cusp excursion. Thickened mitral valve leaflets with normal excursion. Mitral annulus and aortic root calcification. Pulmonic valve not well visualized. Normal tricuspid valve structure. IVC dilated at 2.5 cm with physiologic collapse. A color flow and spectral Doppler study was performed and revealed: No aortic regurgitation. Trace mitral regurgitation. Mitral diastolic velocities suggest reduced left ventricular relaxation c/w mild LV diastolic dysfunction (Grade I ). Trace tricuspid regurgitation. Tricuspid systolic velocities suggests peak right ventricular systolic pressure of 16 mmHg.
[2021-01-27] VITALS: BP 147/85
[2021-01-27] MEDS: Vancomycin 1gm/D5W 275ml IVPB SCH ×4 (00:53→13:47)
[2021-01-27 04:00] VITALS: BP 137/90
[2021-01-27] MEDS: GlipiZIDE 5mg tab ORAL SCH ×2 (05:42→16:43)
[2021-01-27] MEDS: NovoLOG Insulin Flexpen SUBQ SCH ×4 (05:44→20:57)
--- NOTE | 2021-01-27 06:24 | General Progress Note ---
Subjective ROS Limited/Unobtainable: Yes Allergies: Coded Allergies: No Known Allergies (Unverified , 01/25/21) Subjective events noted was agitated - resting now glucose still high Item Value Date Time Bedside Blood Glucose 280 mg/dl H 01/27/21 0544 Bedside Blood Glucose 357 mg/dl H 01/26/21 2100 Bedside Blood Glucose 279 mg/dl H 01/26/21 1712 Bedside Blood Glucose 301 mg/dl H 01/26/21 1206 Bedside Blood Glucose 316 mg/dl H 01/26/21 0640 Bedside Blood Glucose 220 mg/dl H 01/25/21 2327 Objective Last 24 Hour Vital Signs Date Time Temp Pulse Resp B/P (MAP) Pulse Ox O2 Delivery O2 Flow Rate FiO2 01/27/21 04:00 97.7 88 20 137/90 (106) 93 01/27/21 04:00 88 01/27/21 00:00 90 01/27/21 00:00 97.7 98 22 147/85 (105) 92 01/26/21 22:04 110 22 144/96 94 01/26/21 21:34 110 22 144/96 94 01/26/21 21:00 Room Air 01/26/21 20:00 98.6 98 22 144/96 (112) 94 01/26/21 20:00 110 01/26/21 15:49 98.2 92 20 156/88 (110) 96 01/26/21 15:33 94 01/26/21 12:00 97.4 100 20 125/75 (92) 96 01/26/21 11:42 88 01/26/21 10:43 99 154/97 01/26/21 09:00 Room Air 01/26/21 08:00 97.5 99 20 154/97 (116) 97 01/26/21 07:41 105 Intake and Output 01/26/21 01/27/21 19:00 07:00 Intake Total 2100 ml Output Total 600 ml 1200 ml Balance 1500 ml -1200 ml Intake Oral 1200 ml IV Total 900 ml Output Urine Total 600 ml 1200 ml # Voids 3 4 Laboratory Tests 01/26/21 09:20: Sodium Level 143, Potassium Level 3.6, Chloride Level 109H, Carbon Dioxide Level 24, Anion Gap 10, Blood Urea Nitrogen 14, Creatinine 0.9, Estimat Glomerular Filtration Rate > 60, Glucose Level 414H, Hemoglobin A1c 11.8H, Calcium Level 9.0, Total Bilirubin 0.3, Aspartate Amino Transf (AST/SGOT) 12L, Alanine Am inotransferase (ALT/SGPT) 34, Alkaline Phosphatase 81, Total Protein 6.5, Albumin 3.4, Globulin 3.1, Albumin/Globulin Ratio 1.1 01/26/21 11:00: Hemoglobin A1c 11.5H, Uric Acid 5.9, Triglycerides Level 177H, Cholesterol Level 159, LDL Cholesterol 92, HDL Cholesterol 35L, Cholesterol/HDL Ratio 4.5H Height (Feet): 6 Height (Inches): 0.00 Weight (Pounds): 180 General Appearance: no apparent distress Neck: normal alignment Cardiovascular: normal rate Respiratory/Chest: lungs clear Abdomen: normal bowel sounds Objective Current Medications Medications (Trade) Dose Ordered Sig/Arslan Route PRN Reason Start Time Stop Time Status Last Admin Dose Admin Acetaminophen (Tylenol) 500 mg EVERY 6 HOURS PRN ORAL Mild Pain (Pain Scale 1-3) 01/25/21 21:15 02/24/21 21:14 01/26/21 20:21 Aspirin (ASA) 81 mg DAILY ORAL 01/26/21 10:30 03/12/21 10:29 01/26/21 10:43 Dextrose (Dextrose 50%) 25 ml Q30M PRN IV Hypoglycemia 01/25/21 21:45 04/25/21 21:44 Dextrose (Dextrose 50%) 50 ml Q30M PRN IV Hypoglycemia 01/25/21 21:45 04/25/21 21:44 Docusate Sodium (Colace) 100 mg THREE TIMES A DAY ORAL 01/26/21 13:00 02/25/21 12:59 01/26/21 17:13 Glipizide (Glucotrol) 5 mg BIAC ORAL 01/26/21 06:30 02/25/21 06:29 01/27/21 05:42 Insulin Aspart (NovoLOG) BEFORE MEALS AND HS SUBQ 01/26/21 11:30 04/26/21 11:29 01/27/21 05:44 Lisinopril (ZestriL) 10 mg DAILY ORAL 01/27/21 09:00 02/26/21 08:59 Lorazepam (Ativan 2mg/ml 1ml) 1 mg Q6H PRN IVP For Anxiety 01/26/21 21:30 02/02/21 21:29 01/26/21 21:34 Mirtazapine (Remeron) 15 mg BEDTIME ORAL 01/27/21 21:00 04/26/21 21:29 Pantoprazole (Protonix) 40 mg EVERY 12 HOURS ORAL 01/26/21 21:00 02/25/21 20:59 01/26/21 20:18 Sodium Chloride 1,000 ml @ 75 mls/hr [id number] IV 01/26/21 10:30 02/25/21 10:29 01/26/21 23:25 Vancomycin HCl (Vanco pharmacy to dose) 1 ea DAILY PRN MISC Per rx protocol 01/26/21 11:15 02/25/21 11:14 Vancomycin HCl 1 gm/Dextrose 275 ml @ 183.708 mls/hr Q12H IVPB 01/27/21 01:00 02/01/21 00:59 01/27/21 00:53 Assessment/Plan Problem List: (1) Diabetes mellitus, new onset ICD Codes: E11.9 - Type 2 diabetes mellitus without complications SNOMED: 00138336, 363953387 (2) Altered mental status ICD Codes: R41.82 - Altered mental status, unspecified SNOMED: 620136133 (3) Lactic acidosis ICD Codes: E87.2 - Acidosis SNOMED: 03266696 Assessment/Plan: avoid Metformin due to lactic acidosis add Levemir 16 untis qam add Januvia 100 mg daily continue Glipizide 5 mg bid continue Novolog sliding scale ac hs Cholo Solano MD Jan 27, 2021 06:24
[2021-01-27 06:34] LABS: BASOPHILS % (AUTO) 2.6 % (0.0-2.0); EOSINOPHILS % (AUTO) 2.5 % (0.0-3.0); HEMOGLOBIN 13.2 G/DL (14.2-18.0); LYMPHOCYTES % (AUTO) 20.8 % (20.0-45.0); MEAN CORPUSCULAR VOLUME 83 FL (80-99); MONOCYTES % (AUTO) 8.1 % (1.0-10.0); PLATELET COUNT 232 K/UL (150-450); RED BLOOD COUNT 5.07 M/UL (4.70-6.10); WHITE BLOOD COUNT 7.8 K/UL (4.8-10.8)
[2021-01-27 07:04] LABS: ALANINE AMINOTRANSFERASE 37 U/L (12-78); ALBUMIN 3.1 G/DL (3.4-5.0); ALKALINE PHOSPHATASE 78 U/L (46-116); ANION GAP 9 mmol/L (5-15); ASPARTATE AMINO TRANSFERASE 18 U/L (15-37); BILIRUBIN,TOTAL 0.5 MG/DL (0.2-1.0); BLOOD UREA NITROGEN 6 mg/dL (7-18); CALCIUM 8.5 MG/DL (8.5-10.1); CARBON DIOXIDE 25 MMOL/L (21-32); CHLORIDE 106 MMOL/L (98-107); CREATININE 0.7 MG/DL (0.55-1.30); FERRITIN 132 NG/ML (8-388); GAMMA GLUTAMYL TRANSPEPTIDASE 33 U/L (5-85); PHOSPHORUS 3.5 MG/DL (2.5-4.9); POTASSIUM 3.5 MMOL/L (3.5-5.1); SODIUM 140 MMOL/L (136-145)
[2021-01-27 07:38] LABS: % IRON SATURATION 20 % (15-50); IRON 63 ug/dL (50-175); TOTAL IRON BINDING CAPACITY 312 ug/dL (250-450)
[2021-01-27 08:00] VITALS: BP 130/94
--- NOTE | 2021-01-27 08:04 | Cardiac Electrophysiology PN ---
Assessment/Plan Assessment/Plan 1. Syncopal episodes. Etiology is not clear. EKG does not show any acute ischemic changes. There is no evidence of bradycardia or heart block on the telemetry. The patient is not dehydrated. BUN of 14, creatinine 0.9. His glucose however is uncontrolled at 414. Urine toxicology screen is negative. Ruled out for [place] protocol. ECho Nl EF 55%. The patient also is being followed by Neurology, Dr. Paz. 2. Hypertension, on Lisinopril 10 mg po daily 3. Diabetes, on glipizide. 4. Azotemia, resolved DW Dr Paz Subjective Subjective Was agitated overnight and got Ativan. Feeling better now. On RA in SR Objective Last 24 Hour Vital Signs Date Time Temp Pulse Resp B/P (MAP) Pulse Ox O2 Delivery O2 Flow Rate FiO2 01/27/21 04:00 97.7 88 20 137/90 (106) 93 01/27/21 04:00 88 01/27/21 00:00 90 01/27/21 00:00 97.7 98 22 147/85 (105) 92 01/26/21 22:04 110 22 144/96 94 01/26/21 21:34 110 22 144/96 94 01/26/21 21:00 Room Air 01/26/21 20:00 98.6 98 22 144/96 (112) 94 01/26/21 20:00 110 01/26/21 15:49 98.2 92 20 156/88 (110) 96 01/26/21 15:33 94 01/26/21 12:00 97.4 100 20 125/75 (92) 96 01/26/21 11:42 88 01/26/21 10:43 99 154/97 01/26/21 09:00 Room Air Intake and Output 01/26/21 01/27/21 19:00 07:00 Intake Total 2100 ml Output Total 600 ml 1200 ml Balance 1500 ml -1200 ml Intake Oral 1200 ml IV Total 900 ml Output Urine Total 600 ml 1200 ml # Voids 3 4 Laboratory Tests Test 01/26/21 09:20 01/26/21 11:00 01/27/21 06:00 Sodium Level 143 MMOL/L (136-145) 140 MMOL/L (136-145) Potassium Level 3.6 MMOL/L (3.5-5.1) 3.5 MMOL/L (3.5-5.1) Chloride Level 109 MMOL/L (98-107) H 106 MMOL/L (98-107) Carbon Dioxide Level 24 MMOL/L (21-32) 25 MMOL/L (21-32) Anion Gap 10 mmol/L (5-15) 9 mmol/L (5-15) Blood Urea Nitrogen 14 mg/dL (7-18) 6 mg/dL (7-18) L Creatinine 0.9 MG/DL (0.55-1.30) 0.7 MG/DL (0.55-1.30) Estimat Glomerular Filtration Rate > 60 mL/min (>60) > 60 mL/min (>60) Glucose Level 414 MG/DL (74-106) H 306 MG/DL (74-106) #H Hemoglobin A1c 11.8 % (4.3-6.0) H 11.5 % (4.3-6.0) H Calcium Level 9.0 MG/DL (8.5-10.1) 8.5 MG/DL (8.5-10.1) Total Bilirubin 0.3 MG/DL (0.2-1.0) 0.5 MG/DL (0.2-1.0) Aspartate Amino Transf (AST/SGOT) 12 U/L (15-37) L 18 U/L (15-37) Alanine Aminotransferase (ALT/SGPT) 34 U/L (12-78) 37 U/L (12-78) Alkaline Phosphatase 81 U/L (46-116) 78 U/L (46-116) Total Protein 6.5 G/DL (6.4-8.2) 6.2 G/DL (6.4-8.2) L Albumin 3.4 G/DL (3.4-5.0) 3.1 G/DL (3.4-5.0) L Globulin 3.1 g/dL 3.1 g/dL Albumin/Globulin Ratio 1.1 (1.0-2.7) 1.0 (1.0-2.7) Uric Acid 5.9 MG/DL (2.6-7.2) Triglycerides Level 177 MG/DL (30-150) H Cholesterol Level 159 MG/DL (< 200) LDL Cholesterol 92 mg/dL (<100) HDL Cholesterol 35 MG/DL (40-60) L Cholesterol/HDL Ratio 4.5 (3.3-4.4) H White Blood Count 7.8 K/UL (4.8-10.8) Red Blood Count 5.07 M/UL (4.70-6.10) Hemoglobin 13.2 G/DL (14.2-18.0) L Hematocrit 42.0 % (42.0-52.0) Mean Corpuscular Volume 83 FL (80-99) Mean Corpuscular Hemoglobin 26.1 PG (27.0-31.0) L Mean Corpuscular Hemoglobin Concent 31.5 G/DL (32.0-36.0) L Red Cell Distribution Width 13.0 % (11.6-14.8) Platelet Count 232 K/UL (150-450) Mean Platelet Volume 7.2 FL (6.5-10.1) Neutrophils (%) (Auto) 66.0 % (45.0-75.0) Lymphocytes (%) (Auto) 20.8 % (20.0-45.0) Monocytes (%) (Auto) 8.1 % (1.0-10.0) Eosinophils (%) (Auto) 2.5 % (0.0-3.0) Basophils (%) (Auto) 2.6 % (0.0-2.0) H Phosphorus Level 3.5 MG/DL (2.5-4.9) Magnesium Level 2.0 MG/DL (1.8-2.4) Iron Level 63 ug/dL (50-175) Total Iron Binding Capacity 312 ug/dL (250-450) Percent Iron Saturation 20 % (15-50) Unsaturated Iron Binding 249 ug/dL (112-346) Ferritin 132 NG/ML (8-388) Gamma Glutamyl Transpeptidase 33 U/L (5-85) Troponin I 0.011 ng/mL (0.000-0.056) C-Reactive Protein, Quantitative 0.7 mg/dL (0.00-0.90) Pro-B-Type Natriuretic Peptide 67 pg/mL (0-125) Vitamin B12 Level 1162 PG/ML (193-986) H Vitamin D 25-Hydroxy Pending 25-Hydroxy Vitamin D2 Pending 25-Hydroxy Vitamin D3 Pending Folate 54.1 NG/ML (8.6-58.9) Thyroid Stimulating Hormone (TSH) 0.817 uiU/mL (0.358-3.740) Microbiology Date/Time Source Procedure Growth Status 01/25/21 14:55 Blood Blood Culture - Preliminary Resulted 01/25/21 14:50 Blood Blood Culture - Preliminary NO GROWTH AFTER 24 HOURS Resulted Objective HEAD AND NECK: No JVD. He has bruising around his left eye. LUNGS: Clear. CARDIOVASCULAR: Shows regular S1 and S2 with no gallop or murmur. ABDOMEN: Soft. EXTREMITIES: No pitting edema. Massimo Escobar MD Jan 27, 2021 08:04
[2021-01-27] MEDS: Aspirin Baby 81mg ORAL SCH (09:49)
[2021-01-27] MEDS: Docusate 100mg cap ORAL SCH ×3 (09:49→17:16)
[2021-01-27] MEDS: Lisinopril 10mg tab ORAL SCH (09:50)
[2021-01-27] MEDS: Levemir Flexpen SUBQ SCH (09:51)
[2021-01-27] MEDS ORDERED: AMLODIPINE BESYL5 MG ORAL (10:39)
[2021-01-27] MEDS ORDERED: GLIPIZIDE5 MG ORAL (10:39)
[2021-01-27] MEDS ORDERED: METFORMIN HCL850 M1 ORAL (10:39)
[2021-01-27] MEDS ORDERED: TRADJENTA5 MG PO (10:39)
[2021-01-27] MEDS ORDERED: POTASSIUM CHLO20 ME1 ORAL (10:39)
[2021-01-27] MEDS ORDERED: SIMVASTATIN40 MG ORAL (10:39)
[2021-01-27] MEDS ORDERED: FUROSEMIDE40 MG ORAL (10:39)
--- NOTE | 2021-01-27 11:06 | Pulmonology Progress Note ---
Subjective ROS Limited/Unobtainable: Yes Interval Events: none major reported per nursing Constitutional: Reports: no symptoms HEENT: Repors: no symptoms Respiratory: Reports: no symptoms Cardiovascular: Reports: no symptoms Allergies: Coded Allergies: No Known Allergies (Unverified , 01/25/21) Objective Last 24 Hour Vital Signs Date Time Temp Pulse Resp B/P (MAP) Pulse Ox O2 Delivery O2 Flow Rate FiO2 01/27/21 09:50 130/94 01/27/21 09:00 Room Air 01/27/21 08:00 97 01/27/21 08:00 97.9 101 20 130/94 (106) 95 01/27/21 04:00 97.7 88 20 137/90 (106) 93 01/27/21 04:00 88 01/27/21 00:00 90 01/27/21 00:00 97.7 98 22 147/85 (105) 92 01/26/21 22:04 110 22 144/96 94 01/26/21 21:34 110 22 144/96 94 01/26/21 21:00 Room Air 01/26/21 20:00 98.6 98 22 144/96 (112) 94 01/26/21 20:00 110 01/26/21 15:49 98.2 92 20 156/88 (110) 96 01/26/21 15:33 94 01/26/21 12:00 97.4 100 20 125/75 (92) 96 01/26/21 11:42 88 Intake and Output 01/26/21 01/27/21 19:00 07:00 Intake Total 2100 ml Output Total 600 ml 1200 ml Balance 1500 ml -1200 ml Intake Oral 1200 ml IV Total 900 ml Output Urine Total 600 ml 1200 ml # Voids 3 4 General Appearance: no acute distress HEENT: atraumatic Respiratory: lungs clear Cardiovascular: normal rate, regular rhythm Abdomen: soft, non tender Microbiology Date/Time Source Procedure Growth Status 01/25/21 14:55 Blood Blood Culture - Preliminary Resulted 01/25/21 14:50 Blood Blood Culture - Preliminary NO GROWTH AFTER 24 HOURS Resulted Laboratory Tests 01/27/21 06:00: White Blood Count 7.8, Red Blood Count 5.07, Hemoglobin 13.2L, Hematocrit 42.0, Mean Corpuscular Volume 83, Mean Corpuscular Hemoglobin 26.1L, Mean Corpuscular Hemoglobin Concent 31.5L, Red Cell Distribution Width 13.0, Platelet Count 232, Mean Platelet Volume 7.2, Neutrophils (%) (Auto) 66.0, Lymphocytes (%) (Auto) 20.8, Monocytes (%) (Auto) 8.1, Eosinophils (%) (Auto) 2.5, Basophils (%) (Auto) 2.6H, Sodium Level 140, Potassium Level 3.5, Chloride Level 106, Carbon Dioxide Level 25, Anion Gap 9, Blood Urea Nitrogen 6L, Creatinine 0.7, Estimat Glomerul ar Filtration Rate > 60, Glucose Level 306#H, Calcium Level 8.5, Phosphorus Level 3.5, Magnesium Level 2.0, Iron Level 63, Total Iron Binding Capacity 312, Percent Iron Saturation 20, Unsaturated Iron Binding 249, Ferritin 132, Total B ilirubin 0.5, Gamma Glutamyl Transpeptidase 33, Aspartate Amino Transf (AST/SGOT) 18, Alanine Aminotransferase (ALT/SGPT) 37, Alkaline Phosphatase 78, Troponin I 0.011, C-Reactive Protein, Quantitative 0.7, Pro-B-Type Natriuretic Peptide 67, Total Protein 6.2L, Albumin 3.1L, Globulin 3.1, Albumin/Globulin Ratio 1.0, Vitamin B12 Level 1162H, Vitamin D 25-Hydroxy [Pending], 25-Hydroxy Vitamin D2 [Pending], 25-Hydroxy Vitamin D3 [Pending], Folate 54.1, Thyroid Stimulating Hormone (TSH) 0.817 Current Medications Medications (Trade) Dose Ordered Sig/Arslan Route PRN Reason Start Time Stop Time Status Last Admin Dose Admin Acetaminophen (Tylenol) 500 mg EVERY 6 HOURS PRN ORAL Mild Pain (Pain Scale 1-3) 01/25/21 21:15 02/24/21 21:14 01/26/21 20:21 Aspirin (ASA) 81 mg DAILY ORAL 01/26/21 10:30 03/12/21 10:29 01/27/21 09:49 Dextrose (Dextrose 50%) 25 ml Q30M PRN IV Hypoglycemia 01/25/21 21:45 04/25/21 21:44 Dextrose (Dextrose 50%) 50 ml Q30M PRN IV Hypoglycemia 01/25/21 21:45 04/25/21 21:44 Docusate Sodium (Colace) 100 mg THREE TIMES A DAY ORAL 01/26/21 13:00 02/25/21 12:59 01/27/21 09:49 Glipizide (Glucotrol) 5 mg BIAC ORAL 01/26/21 06:30 02/25/21 06:29 01/27/21 05:42 Insulin Aspart (NovoLOG) BEFORE MEALS AND HS SUBQ 01/26/21 11:30 04/26/21 11:29 01/27/21 05:44 Insulin Detemir (Levemir) 16 units DAILY SUBQ 01/27/21 09:00 04/27/21 08:59 01/27/21 09:51 Lisinopril (ZestriL) 10 mg DAILY ORAL 01/27/21 09:00 02/26/21 08:59 01/27/21 09:50 Lorazepam (Ativan 2mg/ml 1ml) 1 mg Q6H PRN IVP For Anxiety 01/26/21 21:30 02/02/21 21:29 01/26/21 21:34 Mirtazapine (Remeron) 15 mg BEDTIME ORAL 01/27/21 21:00 04/26/21 21:29 Pantoprazole (Protonix) 40 mg EVERY 12 HOURS ORAL 01/26/21 21:00 02/25/21 20:59 01/27/21 09:49 Sitagliptin Phosphate (Januvia) 100 mg ACBREAKFAST ORAL 01/27/21 06:30 02/26/21 06:29 01/27/21 06:37 Sodium Chloride 1,000 ml @ 75 mls/hr [id number] IV 01/26/21 10:30 02/25/21 10:29 01/26/21 23:25 Vancomycin HCl (Vanco pharmacy to dose) 1 ea DAILY PRN MISC Per rx protocol 01/26/21 11:15 02/25/21 11:14 Vancomycin HCl 1 gm/Dextrose 275 ml @ 183.708 mls/hr Q12H IVPB 01/27/21 01:00 02/01/21 00:59 01/27/21 00:53 Assessment/Plan Assessment/Plan 1. Hypoxic respiratory distress on arrival -Now stable on room air; provide supplemental oxygen as needed 2. Lung nodules on CT -Subcentimeter nodules -> based on the size, recommend a follow-up CT chest in 6-12 months per Fleischner Society guidelines 3. Emphysematous changes on CT chest - patient reports smoking history, quit 6 years ago - Patient educated on smoking cessation 4. CARRIE 5. Hyperglycemia - Endo following 6. Risk of aspiration - monitor for fever - f/u CXR if indicated 7. Lactic acidosis The care for this patient was discussed with my supervising physician. Time spent for this case was approximately 31 minutes. Stephane Palacios Jan 27, 2021 11:06
--- NOTE | 2021-01-27 11:47 | Nephrology Progress Note ---
Assessment/Plan Problem List: (1) CARRIE (acute kidney injury) (2) Anemia (3) Diabetes mellitus, new onset (4) Altered mental status (5) Electrolyte imbalance (6) HTN (hypertension) Assessment Renal failure Acute encephalopathy, likely metabolic Diabetes mellitus [id number] Electrolyte imbalance Hypertension Anemia Plan January 27: Serum creatinine normalized. Electrolytes within normal range. Blood sugar remains high. Blood pressure appears more stable. Labs reviewed. Medication list reviewed. Continue per consultants. Brain MRI: IMPRESSION: MILD AGE-RELATED SENESCENT CHANGES. 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 TINY FOCI OF SUSCEPTIBILITY ARTIFACT IS NOTED IN THE ROBLES RADIATA REGION BILATERALLY WHICH COULD BE A TINY OLD PETECHIAL HEMORRHAGES. NO ACUTE INFARCT, HEMORRHAGE, MASS EFFECT OR SHIFT. MILD RIGHT MASTOID AIRSPACE DISEASE. Previously suggestions: Hydration with hypotonic solution Keep the blood pressure and blood sugar in check Anemia work-up Start aspirin, beta-blockers, gastric support PPI and stool softener Per orders Subjective ROS Limited/Unobtainable: No Constitutional: Reports: malaise Objective Objective Last 24 Hour Vital Signs Date Time Temp Pulse Resp B/P (MAP) Pulse Ox O2 Delivery O2 Flow Rate FiO2 01/27/21 09:50 130/94 01/27/21 09:00 Room Air 01/27/21 08:00 97 01/27/21 08:00 97.9 101 20 130/94 (106) 95 01/27/21 04:00 97.7 88 20 137/90 (106) 93 01/27/21 04:00 88 01/27/21 00:00 90 01/27/21 00:00 97.7 98 22 147/85 (105) 92 01/26/21 22:04 110 22 144/96 94 01/26/21 21:34 110 22 144/96 94 01/26/21 21:00 Room Air 01/26/21 20:00 98.6 98 22 144/96 (112) 94 01/26/21 20:00 110 01/26/21 15:49 98.2 92 20 156/88 (110) 96 01/26/21 15:33 94 01/26/21 12:00 97.4 100 20 125/75 (92) 96 Intake and Output 01/26/21 01/27/21 19:00 07:00 Intake Total 2100 ml Output Total 600 ml 1200 ml Balance 1500 ml -1200 ml Intake Oral 1200 ml IV Total 900 ml Output Urine Total 600 ml 1200 ml # Voids 3 4 Current Medications Medications (Trade) Dose Ordered Sig/Arslan Route PRN Reason Start Time Stop Time Status Last Admin Dose Admin Acetaminophen (Tylenol) 500 mg EVERY 6 HOURS PRN ORAL Mild Pain (Pain Scale 1-3) 01/25/21 21:15 02/24/21 21:14 01/26/21 20:21 Aspirin (ASA) 81 mg DAILY ORAL 01/26/21 10:30 03/12/21 10:29 01/27/21 09:49 Dextrose (Dextrose 50%) 25 ml Q30M PRN IV Hypoglycemia 01/25/21 21:45 04/25/21 21:44 Dextrose (Dextrose 50%) 50 ml Q30M PRN IV Hypoglycemia 01/25/21 21:45 04/25/21 21:44 Docusate Sodium (Colace) 100 mg THREE TIMES A DAY ORAL 01/26/21 13:00 02/25/21 12:59 01/27/21 09:49 Glipizide (Glucotrol) 5 mg BIAC ORAL 01/26/21 06:30 02/25/21 06:29 01/27/21 05:42 Insulin Aspart (NovoLOG) BEFORE MEALS AND HS SUBQ 01/26/21 11:30 04/26/21 11:29 01/27/21 05:44 Insulin Detemir (Levemir) 16 units DAILY SUBQ 01/27/21 09:00 04/27/21 08:59 01/27/21 09:51 Lisinopril (ZestriL) 10 mg DAILY ORAL 01/27/21 09:00 02/26/21 08:59 01/27/21 09:50 Lorazepam (Ativan 2mg/ml 1ml) 1 mg Q6H PRN IVP For Anxiety 01/26/21 21:30 02/02/21 21:29 01/26/21 21:34 Mirtazapine (Remeron) 15 mg BEDTIME ORAL 01/27/21 21:00 04/26/21 21:29 Pantoprazole (Protonix) 40 mg EVERY 12 HOURS ORAL 01/26/21 21:00 02/25/21 20:59 01/27/21 09:49 Sitagliptin Phosphate (Januvia) 100 mg ACBREAKFAST ORAL 01/27/21 06:30 02/26/21 06:29 01/27/21 06:37 Sodium Chloride 1,000 ml @ 75 mls/hr [id number] IV 01/26/21 10:30 02/25/21 10:29 01/26/21 23:25 Vancomycin HCl (Vanco pharmacy to dose) 1 ea DAILY PRN MISC Per rx protocol 01/26/21 11:15 02/25/21 11:14 Vancomycin HCl 1 gm/Dextrose 275 ml @ 183.708 mls/hr Q12H IVPB 01/27/21 01:00 02/01/21 00:59 01/27/21 00:53 Laboratory Tests 01/27/21 06:00: White Blood Count 7.8, Red Blood Count 5.07, Hemoglobin 13.2L, Hematocrit 42.0, Mean Corpuscular Volume 83, Mean Corpuscular Hemoglobin 26.1L, Mean Corpuscular Hemoglobin Concent 31.5L, Red Cell Distribution Width 13.0, Platelet Count 232, Mean Platelet Volume 7.2, Neutrophils (%) (Auto) 66.0, Lymphocytes (%) (Auto) 20 .8, Monocytes (%) (Auto) 8.1, Eosinophils (%) (Auto) 2.5, Basophils (%) (Auto) 2.6H, Sodium Level 140, Potassium Level 3.5, Chloride Level 106, Carbon Dioxide Level 25, Anion Gap 9, Blood Urea Nitrogen 6L, Creatinine 0.7, Estimat Glomerular Filtration Rate > 60, Glucose Level 306#H, Calcium Level 8.5, Phosphorus Level 3.5, Magnesium Level 2.0, Iron Level 63, Total Iron Binding Capacity 312, Percent Iron Saturation 20, Unsaturated Iron Binding 249, Ferritin 132, Total Bilirubin 0.5, Gamma Glutamyl Transpeptidase 33, Aspartate Amino Transf (AST/SGOT) 18, Alanine Aminotransferase (ALT/SGPT) 37, Alkaline Phosphatase 78, Troponin I 0.011, C-Reactive Protein, Quantitative 0.7, Pro-B-Type Natriuretic Peptide 67, Total Protein 6.2L, Albumin 3.1L, Globulin 3.1, Albumin/Globulin Ratio 1.0, Vitamin B12 Level 1162H, Vitamin D 25-Hydroxy [Pending], 25-Hydroxy Vitamin D2 [Pending], 25-Hydroxy Vitamin D3 [Pending], Folate 54.1, Thyroid Stimulating Hormone (TSH) 0.817 Height (Feet): 6 Height (Inches): 0.00 Weight (Pounds): 180 General Appearance: no apparent distress Cardiovascular: tachycardia Respiratory/Chest: decreased breath sounds Abdomen: soft Jorje Paz MD Jan 27, 2021 11:47
--- NOTE | 2021-01-27 11:59 | Neurology Progress Note ---
Interim History Interim History ROS Limited/Unobtainable: No Objective Physical Exam Last Vital Signs Date Time Temp Pulse Resp B/P (MAP) Pulse Ox O2 Delivery O2 Flow Rate FiO2 01/27/21 09:50 130/94 01/27/21 09:00 Room Air 01/27/21 08:00 97 01/27/21 08:00 97.9 20 95 01/25/21 16:48 2.0 01/25/21 15:00 89 Laboratory Tests Test 01/27/21 06:00 White Blood Count 7.8 K/UL (4.8-10.8) Red Blood Count 5.07 M/UL (4.70-6.10) Hemoglobin 13.2 G/DL (14.2-18.0) L Hematocrit 42.0 % (42.0-52.0) Mean Corpuscular Volume 83 FL (80-99) Mean Corpuscular Hemoglobin 26.1 PG (27.0-31.0) L Mean Corpuscular Hemoglobin Concent 31.5 G/DL (32.0-36.0) L Red Cell Distribution Width 13.0 % (11.6-14.8) Platelet Count 232 K/UL (150-450) Mean Platelet Volume 7.2 FL (6.5-10.1) Neutrophils (%) (Auto) 66.0 % (45.0-75.0) Lymphocytes (%) (Auto) 20.8 % (20.0-45.0) Monocytes (%) (Auto) 8.1 % (1.0-10.0) Eosinophils (%) (Auto) 2.5 % (0.0-3.0) Basophils (%) (Auto) 2.6 % (0.0-2.0) H Sodium Level 140 MMOL/L (136-145) Potassium Level 3.5 MMOL/L (3.5-5.1) Chloride Level 106 MMOL/L (98-107) Carbon Dioxide Level 25 MMOL/L (21-32) Anion Gap 9 mmol/L (5-15) Blood Urea Nitrogen 6 mg/dL (7-18) L Creatinine 0.7 MG/DL (0.55-1.30) Estimat Glomerular Filtration Rate > 60 mL/min (>60) Glucose Level 306 MG/DL (74-106) #H Calcium Level 8.5 MG/DL (8.5-10.1) Phosphorus Level 3.5 MG/DL (2.5-4.9) Magnesium Level 2.0 MG/DL (1.8-2.4) Iron Level 63 ug/dL (50-175) Total Iron Binding Capacity 312 ug/dL (250-450) Percent Iron Saturation 20 % (15-50) Unsaturated Iron Binding 249 ug/dL (112-346) Ferritin 132 NG/ML (8-388) Total Bilirubin 0.5 MG/DL (0.2-1.0) Gamma Glutamyl Transpeptidase 33 U/L (5-85) Aspartate Amino Transf (AST/SGOT) 18 U/L (15-37) Alanine Aminotransferase (ALT/SGPT) 37 U/L (12-78) Alkaline Phosphatase 78 U/L (46-116) Troponin I 0.011 ng/mL (0.000-0.056) C-Reactive Protein, Quantitative 0.7 mg/dL (0.00-0.90) Pro-B-Type Natriuretic Peptide 67 pg/mL (0-125) Total Protein 6.2 G/DL (6.4-8.2) L Albumin 3.1 G/DL (3.4-5.0) L Globulin 3.1 g/dL Albumin/Globulin Ratio 1.0 (1.0-2.7) Vitamin B12 Level 1162 PG/ML (193-986) H Vitamin D 25-Hydroxy Pending 25-Hydroxy Vitamin D2 Pending 25-Hydroxy Vitamin D3 Pending Folate 54.1 NG/ML (8.6-58.9) Thyroid Stimulating Hormone (TSH) 0.817 uiU/mL (0.358-3.740) Neurologic Exam Objective PE Vital signs stable Left Orbit abrasion General: No acute distress calm and cooperative Neuro: Awake Alert to himself disoriented to place and time No insight to situation, Comprehension: not intact. Language parameters intact. Cranial nerves II-XII tested PERRLA, No nystagmus with gaze. No facial droop or asymmetry noted Tongue is midline. Hearing intact Motor: No involuntary movements, Bilat upper extremities 3/5, lower extremities 3/5 Sensation intact. gait not assessed Impression/Recommendations Diagnostic Impression LAB Reviewed IMAGING: CT Head: No evidence of acute intracranial hemorrhage, mass effect or cortical edema. MRI recommended for more sensitive evaluation as clinically indicated. Atrophy and nonspecific periventricular hypoattenuation suggestive of chronic ischemic microvascular changes. Chronic appearing lacunar infarct in the left superior caudate. MRI Brain: MILD AGE-RELATED SENESCENT CHANGES. 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 TINY FOCI OF SUSCEPTIBILITY ARTIFACT IS NOTED IN THE ROBLES RADIATA REGION BILATERALLY WHICH COULD BE A TINY OLD PETECHIAL HEMORRHAGES. NO ACUTE INFARCT, HEMORRHAGE, MASS EFFECT OR SHIFT.MILD RIGHT MASTOID AIRSPACE DISEASE. ASSESSMENT AND REC'S 1. Old lacunar Infarct --> CT head noted, MRI Brain and MRA Head and Neck -ordered 2. 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 Fall --> unknown etiology, order pt and ot 4. Questionable Syncope --> was found down at the grocery store. Cards rec's appreciated --> carotid us no stenosis 5. Diabetes Thank you for allowing us to participate in patient's care, plan of care was discussed with Dr. Jeff White who agrees. Delores Rivera [employer] Jan 27, 2021 11:59
[2021-01-27 12:00] VITALS: BP 146/99
--- NOTE | 2021-01-27 12:20 | Infectious Diseases Prog Note ---
Assessment/Plan Assessment/Plan IMPRESSION: Positive blood culture. Likely has systemic inflammatory response, sepsis. Hypercalcemia. Acute renal failure, hypertension, uncontrolled diabetes mellitus. Has evidence of old lacunar infarct, altered mental status, fall. RECOMMENDATION: Continue IV vancomycin. We will follow up the cultures Subjective ROS Limited/Unobtainable: No Constitutional: Reports: no symptoms Respiratory: Reports: no symptoms Cardiovascular: Reports: no symptoms Gastrointestinal/Abdominal: Reports: no symptoms Genitourinary: Reports: no symptoms Allergies: Coded Allergies: No Known Allergies (Unverified , 01/25/21) Objective Last 24 Hour Vital Signs Date Time Temp Pulse Resp B/P (MAP) Pulse Ox O2 Delivery O2 Flow Rate FiO2 01/27/21 09:50 130/94 01/27/21 09:00 Room Air 01/27/21 08:00 97 01/27/21 08:00 97.9 101 20 130/94 (106) 95 01/27/21 04:00 97.7 88 20 137/90 (106) 93 01/27/21 04:00 88 01/27/21 00:00 90 01/27/21 00:00 97.7 98 22 147/85 (105) 92 01/26/21 22:04 110 22 144/96 94 01/26/21 21:34 110 22 144/96 94 01/26/21 21:00 Room Air 01/26/21 20:00 98.6 98 22 144/96 (112) 94 01/26/21 20:00 110 01/26/21 15:49 98.2 92 20 156/88 (110) 96 01/26/21 15:33 94 Height (Feet): 6 Height (Inches): 0.00 Weight (Pounds): 180 HEENT: mucous membranes moist Respiratory/Chest: lungs clear Cardiovascular: tachycardia Abdomen: soft, non tender Extremities: no edema Skin: other - left check bruise Neurologic/Psychiatric: alert, responsive Microbiology Date/Time Source Procedure Growth Status 01/25/21 14:55 Blood Blood Culture - Preliminary Resulted 01/25/21 14:50 Blood Blood Culture - Preliminary NO GROWTH AFTER 24 HOURS Resulted Laboratory Tests Test 01/27/21 06:00 White Blood Count 7.8 K/UL (4.8-10.8) Red Blood Count 5.07 M/UL (4.70-6.10) Hemoglobin 13.2 G/DL (14.2-18.0) L Hematocrit 42.0 % (42.0-52.0) Mean Corpuscular Volume 83 FL (80-99) Mean Corpuscular Hemoglobin 26.1 PG (27.0-31.0) L Mean Corpuscular Hemoglobin Concent 31.5 G/DL (32.0-36.0) L Red Cell Distribution Width 13.0 % (11.6-14.8) Platelet Count 232 K/UL (150-450) Mean Platelet Volume 7.2 FL (6.5-10.1) Neutrophils (%) (Auto) 66.0 % (45.0-75.0) Lymphocytes (%) (Auto) 20.8 % (20.0-45.0) Monocytes (%) (Auto) 8.1 % (1.0-10.0) Eosinophils (%) (Auto) 2.5 % (0.0-3.0) Basophils (%) (Auto) 2.6 % (0.0-2.0) H Sodium Level 140 MMOL/L (136-145) Potassium Level 3.5 MMOL/L (3.5-5.1) Chloride Level 106 MMOL/L (98-107) Carbon Dioxide Level 25 MMOL/L (21-32) Anion Gap 9 mmol/L (5-15) Blood Urea Nitrogen 6 mg/dL (7-18) L Creatinine 0.7 MG/DL (0.55-1.30) Estimat Glomerular Filtration Rate > 60 mL/min (>60) Glucose Level 306 MG/DL (74-106) #H Calcium Level 8.5 MG/DL (8.5-10.1) Phosphorus Level 3.5 MG/DL (2.5-4.9) Magnesium Level 2.0 MG/DL (1.8-2.4) Iron Level 63 ug/dL (50-175) Total Iron Binding Capacity 312 ug/dL (250-450) Percent Iron Saturation 20 % (15-50) Unsaturated Iron Binding 249 ug/dL (112-346) Ferritin 132 NG/ML (8-388) Total Bilirubin 0.5 MG/DL (0.2-1.0) Gamma Glutamyl Transpeptidase 33 U/L (5-85) Aspartate Amino Transf (AST/SGOT) 18 U/L (15-37) Alanine Aminotransferase (ALT/SGPT) 37 U/L (12-78) Alkaline Phosphatase 78 U/L (46-116) Troponin I 0.011 ng/mL (0.000-0.056) C-Reactive Protein, Quantitative 0.7 mg/dL (0.00-0.90) Pro-B-Type Natriuretic Peptide 67 pg/mL (0-125) Total Protein 6.2 G/DL (6.4-8.2) L Albumin 3.1 G/DL (3.4-5.0) L Globulin 3.1 g/dL Albumin/Globulin Ratio 1.0 (1.0-2.7) Vitamin B12 Level 1162 PG/ML (193-986) H Vitamin D 25-Hydroxy Pending 25-Hydroxy Vitamin D2 Pending 25-Hydroxy Vitamin D3 Pending Folate 54.1 NG/ML (8.6-58.9) Thyroid Stimulating Hormone (TSH) 0.817 uiU/mL (0.358-3.740) Current Medications Medications (Trade) Dose Ordered Sig/Arslan Route PRN Reason Start Time Stop Time Status Last Admin Dose Admin Acetaminophen (Tylenol) 500 mg EVERY 6 HOURS PRN ORAL Mild Pain (Pain Scale 1-3) 01/25/21 21:15 02/24/21 21:14 01/26/21 20:21 Aspirin (ASA) 81 mg DAILY ORAL 01/26/21 10:30 03/12/21 10:29 01/27/21 09:49 Dextrose (Dextrose 50%) 25 ml Q30M PRN IV Hypoglycemia 01/25/21 21:45 04/25/21 21:44 Dextrose (Dextrose 50%) 50 ml Q30M PRN IV Hypoglycemia 01/25/21 21:45 04/25/21 21:44 Docusate Sodium (Colace) 100 mg THREE TIMES A DAY ORAL 01/26/21 13:00 02/25/21 12:59 01/27/21 09:49 Glipizide (Glucotrol) 5 mg BIAC ORAL 01/26/21 06:30 02/25/21 06:29 01/27/21 05:42 Insulin Aspart (NovoLOG) BEFORE MEALS AND HS SUBQ 01/26/21 11:30 04/26/21 11:29 01/27/21 11:44 Insulin Detemir (Levemir) 16 units DAILY SUBQ 01/27/21 09:00 04/27/21 08:59 01/27/21 09:51 Lisinopril (ZestriL) 10 mg DAILY ORAL 01/27/21 09:00 02/26/21 08:59 01/27/21 09:50 Lorazepam (Ativan 2mg/ml 1ml) 1 mg Q6H PRN IVP For Anxiety 01/26/21 21:30 02/02/21 21:29 01/26/21 21:34 Mirtazapine (Remeron) 15 mg BEDTIME ORAL 01/27/21 21:00 04/26/21 21:29 Pantoprazole (Protonix) 40 mg EVERY 12 HOURS ORAL 01/26/21 21:00 02/25/21 20:59 01/27/21 09:49 Sitagliptin Phosphate (Januvia) 100 mg ACBREAKFAST ORAL 01/27/21 06:30 02/26/21 06:29 01/27/21 06:37 Sodium Chloride 1,000 ml @ 75 mls/hr [id number] IV 01/26/21 10:30 02/25/21 10:29 01/26/21 23:25 Vancomycin HCl (Vanco pharmacy to dose) 1 ea DAILY PRN MISC Per rx protocol 01/26/21 11:15 02/25/21 11:14 Vancomycin HCl 1 gm/Dextrose 275 ml @ 183.708 mls/hr Q12H IVPB 01/27/21 01:00 02/01/21 00:59 01/27/21 00:53 Octavio Allen MD Jan 27, 2021 12:20
[2021-01-27 16:00] VITALS: BP 139/97
[2021-01-27] MEDS: LORazepam Inj 2mg/ml 1ml IVP PRN (19:54)
--- NOTE | 2021-01-27 19:55 | General Progress Note ---
Subjective ROS Limited/Unobtainable: Yes Allergies: Coded Allergies: No Known Allergies (Unverified , 01/25/21) Objective Last 24 Hour Vital Signs Date Time Temp Pulse Resp B/P (MAP) Pulse Ox O2 Delivery O2 Flow Rate FiO2 01/27/21 16:00 93 01/27/21 16:00 98.2 92 20 139/97 (111) 96 01/27/21 12:00 98 01/27/21 12:00 97.9 101 20 146/99 (115) 96 01/27/21 09:50 130/94 01/27/21 09:00 Room Air 01/27/21 08:00 97 01/27/21 08:00 97.9 101 20 130/94 (106) 95 01/27/21 04:00 97.7 88 20 137/90 (106) 93 01/27/21 04:00 88 01/27/21 00:00 90 01/27/21 00:00 97.7 98 22 147/85 (105) 92 01/26/21 22:04 110 22 144/96 94 01/26/21 21:34 110 22 144/96 94 01/26/21 21:00 Room Air 01/26/21 20:00 98.6 98 22 144/96 (112) 94 01/26/21 20:00 110 Intake and Output 01/26/21 01/27/21 19:00 07:00 Intake Total 2100 ml Output Total 600 ml 1200 ml Balance 1500 ml -1200 ml Intake Oral 1200 ml IV Total 900 ml Output Urine Total 600 ml 1200 ml # Voids 3 4 Laboratory Tests 01/27/21 06:00: White Blood Count 7.8, Red Blood Count 5.07, Hemoglobin 13.2L, Hematocrit 42.0, Mean Corpuscular Volume 83, Mean Corpuscular Hemoglobin 26.1L, Mean Corpuscular Hemoglobin Concent 31.5L, Red Cell Distribution Width 13.0, Platelet Count 232, Mean Platelet Volume 7.2, Neutrophils (%) (Auto) 66.0, Lymphocytes (%) (Auto) 20.8, Monocytes (%) (Auto) 8.1, Eosinophils (%) (Auto) 2.5, Basophils (%) (Auto) 2.6H, Sodium Level 140, Potassium Level 3.5, Chloride Level 106, Carbon Dioxide Level 25, Anion Gap 9, Blood Urea Nitrogen 6L, Creatinine 0.7, Estimat Glomerular Filtration Rate > 60, Glucose Level 306#H, Calcium Level 8.5, Phosphorus Level 3.5, Magnesium Level 2.0, Iron Level 63, Total Iron Binding Capacity 312, Percent Iron Saturation 20, Unsaturated Iron Binding 249, Ferritin 132, Total Bilirubin 0.5, Gamma Glutamyl Transpeptidase 33, Aspartate Amino Transf (AST/SGOT) 18, Alanine Aminotransferase (ALT/SGPT) 37, Alkaline Phosphatase 78, Troponin I 0.011, C-Reactive Protein, Quantitative 0.7, Pro-B-Type Natriuretic Peptide 67, Total Protein 6.2L, Albumin 3.1L, Globulin 3.1, Albumin/Globulin Ratio 1.0, Vitamin B12 Level 1162H, Vitamin D 25-Hydroxy [Pending], 25-Hydroxy Vitamin D2 [Pending], 25-Hydroxy Vitamin D3 [Pending], Folate 54.1, Thyroid Stimulating Hormone (TSH) 0.817 Height (Feet): 6 Height (Inches): 0.00 Weight (Pounds): 180 Assessment/Plan Problem List: (1) Altered mental status ICD Codes: R41.82 - Altered mental status, unspecified SNOMED: 705962926 (2) Diabetes mellitus, new onset ICD Codes: E11.9 - Type 2 diabetes mellitus without complications SNOMED: 35728327, 297878442 (3) Anemia ICD Codes: D64.9 - Anemia, unspecified SNOMED: 318254551 (4) CARRIE (acute kidney injury) ICD Codes: N17.9 - Acute kidney failure, unspecified SNOMED: 2333590, 33326405 (5) Electrolyte imbalance ICD Codes: E87.8 - Other disorders of electrolyte and fluid balance, not elsewhere classified SNOMED: 157370808 (6) HTN (hypertension) ICD Codes: I10 - Essential (primary) hypertension SNOMED: 84777094 Status: progressing Assessment/Plan: confused afebrile anemia reviewed chart and labs Tylor Andujar MD Jan 27, 2021 19:55
[2021-01-27 20:00] VITALS: BP 135/98
--- NOTE | 2021-01-27 21:17 | Diagnostic Imaging Report ---
EXAM: MR Angiography Head Without Intravenous Contrast CLINICAL HISTORY: CVA TECHNIQUE: Magnetic resonance angiography images of the head without intravenous contrast. COMPARISON: No relevant prior studies available. FINDINGS: Artifacts: Motion artifact limits study. Right internal carotid artery: Intracranial segment is patent with no significant stenosis. No aneurysm. Right anterior cerebral artery: No occlusion or significant stenosis. No aneurysm. Right middle cerebral artery: No occlusion or significant stenosis. No aneurysm. Right posterior cerebral artery: No occlusion or significant stenosis. No aneurysm. Right vertebral artery: Unremarkable as visualized. Left internal carotid artery: Tortuous cavernous segment of the left internal carotid artery. Intracranial segment is patent with no significant stenosis. No aneurysm. Left anterior cerebral artery: No occlusion or significant stenosis. No aneurysm. Left middle cerebral artery: No occlusion or significant stenosis. No aneurysm. Left posterior cerebral artery: No occlusion or significant stenosis. No aneurysm. Left vertebral artery: Unremarkable as visualized. Basilar artery: No occlusion or significant stenosis. No aneurysm. IMPRESSION: No large vessel occlusion or aneurysm.
[2021-01-28] VITALS: BP 137/98
[2021-01-28] MEDS: Vancomycin 1gm/D5W 275ml IVPB SCH ×2 (00:02)
[2021-01-28] MEDS: Vancomycin 1.5gm/300ml Premix IVPB SCH ×2 (01:55→13:56)
[2021-01-28 04:00] VITALS: BP 143/87
[2021-01-28] MEDS: GlipiZIDE 5mg tab ORAL SCH ×2 (05:49→16:30)
[2021-01-28] MEDS: NovoLOG Insulin Flexpen SUBQ SCH ×4 (05:50→20:46)
--- NOTE | 2021-01-28 06:47 | General Progress Note ---
Subjective ROS Limited/Unobtainable: Yes Allergies: Coded Allergies: No Known Allergies (Unverified , 01/25/21) Subjective events noted confused with sitter at bedside glucose values improved Item Value Date Time Bedside Blood Glucose 181 mg/dl H 01/28/21 0623 Bedside Blood Glucose 233 mg/dl H 01/27/21 2100 Bedside Blood Glucose 236 mg/dl H 01/27/21 1644 Bedside Blood Glucose 303 mg/dl H 01/27/21 1144 Bedside Blood Glucose 280 mg/dl H 01/27/21 0951 Objective Last 24 Hour Vital Signs Date Time Temp Pulse Resp B/P (MAP) Pulse Ox O2 Delivery O2 Flow Rate FiO2 01/28/21 04:00 97.5 96 20 143/87 (105) 93 01/28/21 04:00 89 01/28/21 00:00 96.8 88 20 137/98 (111) 94 01/28/21 00:00 107 01/27/21 21:00 Room Air 01/27/21 20:24 93 20 135/98 95 01/27/21 20:00 96 01/27/21 20:00 98.8 93 20 135/98 (110) 95 01/27/21 19:54 94 20 135/98 95 01/27/21 16:00 93 01/27/21 16:00 98.2 92 20 139/97 (111) 96 01/27/21 12:00 98 01/27/21 12:00 97.9 101 20 146/99 (115) 96 01/27/21 09:50 130/94 01/27/21 09:00 Room Air 01/27/21 08:00 97 01/27/21 08:00 97.9 101 20 130/94 (106) 95 Intake and Output 01/27/21 01/28/21 19:00 07:00 Intake Total 900 ml Output Total 700 ml Balance 200 ml Intake Oral 900 ml Output Urine Total 700 ml # Voids 6 6 # Bowel Movements 1 Laboratory Tests 01/28/21 00:17: Vancomycin Level Trough 6.7 Height (Feet): 6 Height (Inches): 0.00 Weight (Pounds): 180 General Appearance: no apparent distress Neck: normal alignment Cardiovascular: normal rate Respiratory/Chest: lungs clear Abdomen: normal bowel sounds Objective Current Medications Medications (Trade) Dose Ordered Sig/Arslan Route PRN Reason Start Time Stop Time Status Last Admin Dose Admin Acetaminophen (Tylenol) 500 mg EVERY 6 HOURS PRN ORAL Mild Pain (Pain Scale 1-3) 01/25/21 21:15 02/24/21 21:14 01/26/21 20:21 Aspirin (ASA) 81 mg DAILY ORAL 01/26/21 10:30 03/12/21 10:29 01/27/21 09:49 Dextrose (Dextrose 50%) 25 ml Q30M PRN IV Hypoglycemia 01/25/21 21:45 04/25/21 21:44 Dextrose (Dextrose 50%) 50 ml Q30M PRN IV Hypoglycemia 01/25/21 21:45 04/25/21 21:44 Docusate Sodium (Colace) 100 mg THREE TIMES A DAY ORAL 01/26/21 13:00 02/25/21 12:59 01/27/21 17:16 Glipizide (Glucotrol) 5 mg BIAC ORAL 01/26/21 06:30 02/25/21 06:29 01/28/21 05:49 Insulin Aspart (NovoLOG) BEFORE MEALS AND HS SUBQ 01/26/21 11:30 04/26/21 11:29 01/28/21 05:50 Insulin Detemir (Levemir) 16 units DAILY SUBQ 01/27/21 09:00 04/27/21 08:59 01/27/21 09:51 Lisinopril (ZestriL) 10 mg DAILY ORAL 01/27/21 09:00 02/26/21 08:59 01/27/21 09:50 Lorazepam (Ativan 2mg/ml 1ml) 1 mg Q6H PRN IVP For Anxiety 01/26/21 21:30 02/02/21 21:29 01/27/21 19:54 Mirtazapine (Remeron) 15 mg BEDTIME ORAL 01/27/21 21:00 04/26/21 21:29 01/27/21 20:54 Pantoprazole (Protonix) 40 mg EVERY 12 HOURS ORAL 01/26/21 21:00 02/25/21 20:59 01/27/21 20:53 Sitagliptin Phosphate (Januvia) 100 mg ACBREAKFAST ORAL 01/27/21 06:30 02/26/21 06:29 01/28/21 05:49 Vancomycin HCl 300 ml @ 150 mls/hr Q12H IVPB 01/28/21 01:00 02/02/21 00:59 01/28/21 01:55 Vancomycin HCl (Vanco pharmacy to dose) 1 ea DAILY PRN MISC Per rx protocol 01/26/21 11:15 02/25/21 11:14 Assessment/Plan Problem List: (1) Diabetes mellitus, new onset ICD Codes: E11.9 - Type 2 diabetes mellitus without complications SNOMED: 36859393, 774021842 (2) Altered mental status ICD Codes: R41.82 - Altered mental status, unspecified SNOMED: 628710922 (3) Lactic acidosis ICD Codes: E87.2 - Acidosis SNOMED: 20812629 Status: progressing Assessment/Plan: avoid Metformin due to lactic acidosis continue Levemir 16 untis qam continue Januvia 100 mg daily continue Glipizide 5 mg bid continue Novolog sliding scale ac Cholo Solano MD Jan 28, 2021 06:47
[2021-01-28 08:00] VITALS: BP 131/82
[2021-01-28] MEDS: Docusate 100mg cap ORAL SCH ×3 (09:22→17:25)
[2021-01-28] MEDS: Lisinopril 10mg tab ORAL SCH (09:22)
[2021-01-28] MEDS: Aspirin Baby 81mg ORAL SCH (09:22)
[2021-01-28] MEDS: Levemir Flexpen SUBQ SCH (09:23)
--- NOTE | 2021-01-28 10:14 | Cardiac Electrophysiology PN ---
Assessment/Plan Assessment/Plan 1. Syncopal episodes. Etiology is not clear. EKG does not show any acute ischemic changes. There is no evidence of bradycardia or heart block on the telemetry. The patient is not dehydrated. BUN of 14, creatinine 0.9. His glucose however is uncontrolled at 414. Urine toxicology screen is negative. Ruled out for NE protocol. ECho Nl EF 55%. The patient also is being followed by Neurology 2. Hypertension, on Lisinopril 10 mg po daily 3. Diabetes, on glipizide. 4. Azotemia, resolved DW Dr Paz Subjective Subjective Feeling better now. On RA in SR. No CP. Just had breakfast Objective Last 24 Hour Vital Signs Date Time Temp Pulse Resp B/P (MAP) Pulse Ox O2 Delivery O2 Flow Rate FiO2 01/28/21 09:22 131/82 01/28/21 08:00 96.8 89 20 131/82 (98) 94 01/28/21 04:00 97.5 96 20 143/87 (105) 93 01/28/21 04:00 89 01/28/21 00:00 96.8 88 20 137/98 (111) 94 01/28/21 00:00 107 01/27/21 21:00 Room Air 01/27/21 20:24 93 20 135/98 95 01/27/21 20:00 96 01/27/21 20:00 98.8 93 20 135/98 (110) 95 01/27/21 19:54 94 20 135/98 95 01/27/21 16:00 93 01/27/21 16:00 98.2 92 20 139/97 (111) 96 01/27/21 12:00 98 01/27/21 12:00 97.9 101 20 146/99 (115) 96 Intake and Output 01/27/21 01/28/21 19:00 07:00 Intake Total 900 ml Output Total 700 ml Balance 200 ml Intake Oral 900 ml Output Urine Total 700 ml # Voids 6 6 # Bowel Movements 1 Laboratory Tests Test 01/28/21 00:17 Vancomycin Level Trough 6.7 ug/mL (5.0-12.0) Microbiology Date/Time Source Procedure Growth Status 01/25/21 14:55 Blood Blood Culture - Preliminary Gram Positive Cocci Resulted 01/25/21 14:50 Blood Blood Culture - Preliminary NO GROWTH AFTER 48 HOURS Resulted Objective HEAD AND NECK: No JVD. He has bruising around his left eye. LUNGS: Clear. CARDIOVASCULAR: Shows regular S1 and S2 with no gallop or murmur. ABDOMEN: Soft. EXTREMITIES: No pitting edema. Massimo Escobar MD Jan 28, 2021 10:14
--- NOTE | 2021-01-28 10:48 | Infectious Diseases Prog Note ---
Assessment/Plan Assessment/Plan IMPRESSION: Positive blood culture likely Staph Hominis Likely has systemic inflammatory response, sepsis. Hypercalcemia. Acute renal failure, hypertension, uncontrolled diabetes mellitus. Has evidence of old lacunar infarct, altered mental status, Syncope &fall. RECOMMENDATION: Continue IV vancomycin. We will follow up the cultures Case was D/W microbiology lab Subjective ROS Limited/Unobtainable: No Constitutional: Reports: no symptoms Respiratory: Reports: no symptoms Genitourinary: Reports: no symptoms Allergies: Coded Allergies: No Known Allergies (Unverified , 01/25/21) Objective Last 24 Hour Vital Signs Date Time Temp Pulse Resp B/P (MAP) Pulse Ox O2 Delivery O2 Flow Rate FiO2 01/28/21 09:22 131/82 01/28/21 08:00 96.8 89 20 131/82 (98) 94 01/28/21 04:00 97.5 96 20 143/87 (105) 93 01/28/21 04:00 89 01/28/21 00:00 96.8 88 20 137/98 (111) 94 01/28/21 00:00 107 01/27/21 21:00 Room Air 01/27/21 20:24 93 20 135/98 95 01/27/21 20:00 96 01/27/21 20:00 98.8 93 20 135/98 (110) 95 01/27/21 19:54 94 20 135/98 95 01/27/21 16:00 93 01/27/21 16:00 98.2 92 20 139/97 (111) 96 01/27/21 12:00 98 01/27/21 12:00 97.9 101 20 146/99 (115) 96 Height (Feet): 6 Height (Inches): 0.00 Weight (Pounds): 180 General Appearance: no acute distress HEENT: mucous membranes moist Respiratory/Chest: lungs clear Cardiovascular: normal rate Abdomen: soft, non tender Extremities: no edema Neurologic/Psychiatric: alert, responsive Microbiology Date/Time Source Procedure Growth Status 01/25/21 14:55 Blood Blood Culture - Preliminary Gram Positive Cocci Resulted 01/25/21 14:50 Blood Blood Culture - Preliminary NO GROWTH AFTER 48 HOURS Resulted Laboratory Tests Test 01/28/21 00:17 Vancomycin Level Trough 6.7 ug/mL (5.0-12.0) Current Medications Medications (Trade) Dose Ordered Sig/Arslan Route PRN Reason Start Time Stop Time Status Last Admin Dose Admin Acetaminophen (Tylenol) 500 mg EVERY 6 HOURS PRN ORAL Mild Pain (Pain Scale 1-3) 01/25/21 21:15 02/24/21 21:14 01/26/21 20:21 Aspirin (ASA) 81 mg DAILY ORAL 01/26/21 10:30 03/12/21 10:29 01/28/21 09:22 Dextrose (Dextrose 50%) 25 ml Q30M PRN IV Hypoglycemia 01/25/21 21:45 04/25/21 21:44 Dextrose (Dextrose 50%) 50 ml Q30M PRN IV Hypoglycemia 01/25/21 21:45 04/25/21 21:44 Docusate Sodium (Colace) 100 mg THREE TIMES A DAY ORAL 01/26/21 13:00 02/25/21 12:59 01/28/21 09:22 Glipizide (Glucotrol) 5 mg BIAC ORAL 01/26/21 06:30 02/25/21 06:29 01/28/21 05:49 Insulin Aspart (NovoLOG) BEFORE MEALS AND HS SUBQ 01/26/21 11:30 04/26/21 11:29 01/28/21 05:50 Insulin Detemir (Levemir) 16 units DAILY SUBQ 01/27/21 09:00 04/27/21 08:59 01/28/21 09:23 Lisinopril (ZestriL) 10 mg DAILY ORAL 01/27/21 09:00 02/26/21 08:59 01/28/21 09:22 Lorazepam (Ativan 2mg/ml 1ml) 1 mg Q6H PRN IVP For Anxiety 01/26/21 21:30 02/02/21 21:29 01/27/21 19:54 Mirtazapine (Remeron) 15 mg BEDTIME ORAL 01/27/21 21:00 04/26/21 21:29 01/27/21 20:54 Pantoprazole (Protonix) 40 mg EVERY 12 HOURS ORAL 01/26/21 21:00 02/25/21 20:59 01/28/21 09:22 Sitagliptin Phosphate (Januvia) 100 mg ACBREAKFAST ORAL 01/27/21 06:30 02/26/21 06:29 01/28/21 05:49 Vancomycin HCl 300 ml @ 150 mls/hr Q12H IVPB 01/28/21 01:00 02/02/21 00:59 01/28/21 01:55 Vancomycin HCl (Vanco pharmacy to dose) 1 ea DAILY PRN MISC Per rx protocol 01/26/21 11:15 02/25/21 11:14 Octavio Allen MD Jan 28, 2021 10:48
--- NOTE | 2021-01-28 11:07 | Nephrology Progress Note ---
Assessment/Plan Problem List: (1) CARRIE (acute kidney injury) (2) Anemia (3) Diabetes mellitus, new onset (4) Altered mental status (5) Electrolyte imbalance (6) HTN (hypertension) Assessment Renal failure Acute encephalopathy, likely metabolic Diabetes mellitus [id number] Electrolyte imbalance Hypertension Anemia Plan January 28: No CHEM panel drawn today. Medication list reviewed. Blood pressure is stable. Blood sugar better controlled. Continue per lead consultant. Check lab tomorrow. January 27: Serum creatinine normalized. Electrolytes within normal range. Blood sugar remains high. Blood pressure appears more stable. Labs reviewed. Medication list reviewed. Continue per consultants. Brain MRI: IMPRESSION: MILD AGE-RELATED SENESCENT CHANGES. 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 TINY FOCI OF SUSCEPTIBILITY ARTIFACT IS NOTED IN THE ROBLES RADI[place] REGION BILATERALLY WHICH COULD BE A TINY OLD PETECHIAL HEMORRHAGES. NO ACUTE INFARCT, HEMORRHAGE, MASS EFFECT OR SHIFT. MILD RIGHT MASTOID AIRSPACE DISEASE. Previously suggestions: Hydration with hypotonic solution Keep the blood pressure and blood sugar in check Anemia work-up Start aspirin, beta-blockers, gastric support PPI and stool softener Per orders Subjective ROS Limited/Unobtainable: No Constitutional: Reports: malaise Objective Objective Last 24 Hour Vital Signs Date Time Temp Pulse Resp B/P (MAP) Pulse Ox O2 Delivery O2 Flow Rate FiO2 01/28/21 09:22 131/82 01/28/21 08:00 96.8 89 20 131/82 (98) 94 01/28/21 04:00 97.5 96 20 143/87 (105) 93 01/28/21 04:00 89 01/28/21 00:00 96.8 88 20 137/98 (111) 94 01/28/21 00:00 107 01/27/21 21:00 Room Air 01/27/21 20:24 93 20 135/98 95 01/27/21 20:00 96 01/27/21 20:00 98.8 93 20 135/98 (110) 95 01/27/21 19:54 94 20 135/98 95 01/27/21 16:00 93 01/27/21 16:00 98.2 92 20 139/97 (111) 96 01/27/21 12:00 98 01/27/21 12:00 97.9 101 20 146/99 (115) 96 Intake and Output 01/27/21 01/28/21 19:00 07:00 Intake Total 900 ml Output Total 700 ml Balance 200 ml Intake Oral 900 ml Output Urine Total 700 ml # Voids 6 6 # Bowel Movements 1 Current Medications Medications (Trade) Dose Ordered Sig/Arslan Route PRN Reason Start Time Stop Time Status Last Admin Dose Admin Acetaminophen (Tylenol) 500 mg EVERY 6 HOURS PRN ORAL Mild Pain (Pain Scale 1-3) 01/25/21 21:15 02/24/21 21:14 01/26/21 20:21 Aspirin (ASA) 81 mg DAILY ORAL 01/26/21 10:30 03/12/21 10:29 01/28/21 09:22 Dextrose (Dextrose 50%) 25 ml Q30M PRN IV Hypoglycemia 01/25/21 21:45 04/25/21 21:44 Dextrose (Dextrose 50%) 50 ml Q30M PRN IV Hypoglycemia 01/25/21 21:45 04/25/21 21:44 Docusate Sodium (Colace) 100 mg THREE TIMES A DAY ORAL 01/26/21 13:00 02/25/21 12:59 01/28/21 09:22 Glipizide (Glucotrol) 5 mg BIAC ORAL 01/26/21 06:30 02/25/21 06:29 01/28/21 05:49 Insulin Aspart (NovoLOG) BEFORE MEALS AND HS SUBQ 01/26/21 11:30 04/26/21 11:29 01/28/21 05:50 Insulin Detemir (Levemir) 16 units DAILY SUBQ 01/27/21 09:00 04/27/21 08:59 01/28/21 09:23 Lisinopril (ZestriL) 10 mg DAILY ORAL 01/27/21 09:00 02/26/21 08:59 01/28/21 09:22 Lorazepam (Ativan 2mg/ml 1ml) 1 mg Q6H PRN IVP For Anxiety 01/26/21 21:30 02/02/21 21:29 01/27/21 19:54 Mirtazapine (Remeron) 15 mg BEDTIME ORAL 01/27/21 21:00 04/26/21 21:29 01/27/21 20:54 Pantoprazole (Protonix) 40 mg EVERY 12 HOURS ORAL 01/26/21 21:00 02/25/21 20:59 01/28/21 09:22 Sitagliptin Phosphate (Januvia) 100 mg ACBREAKFAST ORAL 01/27/21 06:30 02/26/21 06:29 01/28/21 05:49 Vancomycin HCl 300 ml @ 150 mls/hr Q12H IVPB 01/28/21 01:00 02/02/21 00:59 01/28/21 01:55 Vancomycin HCl (Vanco pharmacy to dose) 1 ea DAILY PRN MISC Per rx protocol 01/26/21 11:15 02/25/21 11:14 Laboratory Tests 01/28/21 00:17: Vancomycin Level Trough 6.7 Height (Feet): 6 Height (Inches): 0.00 Weight (Pounds): 180 General Appearance: no apparent distress Cardiovascular: tachycardia Respiratory/Chest: decreased breath sounds Abdomen: distended Jorje Paz MD Jan 28, 2021 11:07
[2021-01-28 12:00] VITALS: BP 141/94
--- NOTE | 2021-01-28 14:43 | Neurology Progress Note ---
Interim History Interim History ROS Limited/Unobtainable: No Events: pt resting in bed no acute distress Review of Systems All Systems: reviewed and negative except above Objective Physical Exam Last Vital Signs Date Time Temp Pulse Resp B/P (MAP) Pulse Ox O2 Delivery O2 Flow Rate FiO2 01/28/21 12:00 95 01/28/21 12:00 98.1 20 141/94 (110) 96 01/28/21 09:00 Room Air 01/25/21 16:48 2.0 01/25/21 15:00 89 Laboratory Tests Test 01/28/21 00:17 Vancomycin Level Trough 6.7 ug/mL (5.0-12.0) Neurologic Exam Objective PE Vital signs stable Left Orbit abrasion General: No acute distress calm and cooperative Neuro: Awake Alert to himself disoriented to place and time No insight to situation, Comprehension: not intact. Language parameters intact. Cranial nerves II-XII tested PERRLA, No nystagmus with gaze. No facial droop or asymmetry noted Tongue is midline. Hearing intact Motor: No involuntary movements, Bilat upper extremities 3/5, lower extremities 3/5 Sensation intact. gait not assessed Impression/Recommendations Status: progressing Diagnostic Impression LAB Reviewed IMAGING: CT Head: No evidence of acute intracranial hemorrhage, mass effect or cortical edema. MRI recommended for more sensitive evaluation as clinically indicated. Atrophy and nonspecific periventricular hypoattenuation suggestive of chronic ischemic microvascular changes. Chronic appearing lacunar infarct in the left superior caudate. MRI Brain: MILD AGE-RELATED SENESCENT CHANGES. 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 TINY FOCI OF SUSCEPTIBILITY ARTIFACT IS NOTED IN THE ROBLES RADIATA REGION BILATERALLY WHICH COULD BE A TINY OLD PETECHIAL HEMORRHAGES. NO ACUTE INFARCT, HEMORRHAGE, MASS EFFECT OR SHIFT.MILD RIGHT MASTOID AIRSPACE DISEASE. ASSESSMENT AND REC'S 1. Old lacunar Infarct --> CT head noted, MRI Brain and MRA Head and Neck -ordered 2. 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 3. Fall --> unknown etiology, order pt and ot pt doing well 4. Questionable Syncope --> was found down at the grocery store. Cards rec's appreciated --> carotid us no stenosis 5. Diabetes Thank you for allowing us to participate in patient's care, plan of care was discussed with Dr. Jeff White who agrees. Delores Rivera NP Jan 28, 2021 14:43
[2021-01-28 16:00] VITALS: BP 132/96
[2021-01-28 20:00] VITALS: BP 147/90
--- NOTE | 2021-01-28 20:44 | General Progress Note ---
Subjective ROS Limited/Unobtainable: Yes Allergies: Coded Allergies: No Known Allergies (Unverified , 01/25/21) Objective Last 24 Hour Vital Signs Date Time Temp Pulse Resp B/P (MAP) Pulse Ox O2 Delivery O2 Flow Rate FiO2 01/28/21 16:00 98.1 91 20 132/96 (108) 100 01/28/21 16:00 90 01/28/21 12:00 95 01/28/21 12:00 98.1 102 20 141/94 (110) 96 01/28/21 09:22 131/82 01/28/21 09:00 Room Air 01/28/21 08:00 91 01/28/21 08:00 96.8 89 20 131/82 (98) 94 01/28/21 04:00 97.5 96 20 143/87 (105) 93 01/28/21 04:00 89 01/28/21 00:00 96.8 88 20 137/98 (111) 94 01/28/21 00:00 107 01/27/21 21:00 Room Air Intake and Output 01/27/21 01/28/21 19:00 07:00 Intake Total 900 ml Output Total 700 ml Balance 200 ml Intake Oral 900 ml Output Urine Total 700 ml # Voids 6 6 # Bowel Movements 1 Laboratory Tests 01/28/21 00:17: Vancomycin Level Trough 6.7 Height (Feet): 6 Height (Inches): 0.00 Weight (Pounds): 180 Assessment/Plan Problem List: (1) Altered mental status ICD Codes: R41.82 - Altered mental status, unspecified SNOMED: 993563316 (2) Diabetes mellitus, new onset ICD Codes: E11.9 - Type 2 diabetes mellitus without complications SNOMED: 86840372, 711786677 (3) Anemia ICD Codes: D64.9 - Anemia, unspecified SNOMED: 206723424 (4) CARRIE (acute kidney injury) ICD Codes: N17.9 - Acute kidney failure, unspecified SNOMED: 5204812, 23034602 (5) Electrolyte imbalance ICD Codes: E87.8 - Other disorders of electrolyte and fluid balance, not elsewhere classified SNOMED: 598868200 (6) HTN (hypertension) ICD Codes: I10 - Essential (primary) hypertension SNOMED: 69511323 Status: progressing Assessment/Plan: ams syncope w/u in progress niddm tachycardia arf dehydration is improving anemia reviewed chart and labs Tylor Andujar MD Jan 28, 2021 20:44
[2021-01-28] MEDS: LORazepam Inj 2mg/ml 1ml IVP PRN (21:38)
[2021-01-29] VITALS: BP 132/86
[2021-01-29] MEDS: Vancomycin 1.5gm/300ml Premix IVPB SCH (01:56)
[2021-01-29 04:00] VITALS: BP 137/77
[2021-01-29] MEDS: NovoLOG Insulin Flexpen SUBQ SCH ×4 (06:25→22:06)
[2021-01-29] MEDS: GlipiZIDE 5mg tab ORAL SCH ×2 (06:26→15:41)
[2021-01-29 08:00] VITALS: BP 127/83
[2021-01-29] MEDS: Docusate 100mg cap ORAL SCH ×3 (08:38→18:00)
[2021-01-29] MEDS: Aspirin Baby 81mg ORAL SCH (08:38)
[2021-01-29] MEDS: Lisinopril 10mg tab ORAL SCH (08:39)
[2021-01-29] MEDS: Levemir Flexpen SUBQ SCH (08:40)
--- NOTE | 2021-01-29 09:44 | Infectious Diseases Prog Note ---
Assessment/Plan Assessment/Plan IMPRESSION: Positive blood culture with Staph Hominis/ contamination Likely has systemic inflammatory response, sepsis. Hypercalcemia. Acute renal failure, hypertension, uncontrolled diabetes mellitus. Has evidence of old lacunar infarct, altered mental status, Syncope &fall. RECOMMENDATION: Discontinue IV vancomycin. Obseve off antibiotic Subjective ROS Limited/Unobtainable: Yes Respiratory: Reports: no symptoms Breasts: Reports: no symptoms Gastrointestinal/Abdominal: Reports: no symptoms Genitourinary: Reports: no symptoms Allergies: Coded Allergies: No Known Allergies (Unverified , 01/25/21) Objective Last 24 Hour Vital Signs Date Time Temp Pulse Resp B/P (MAP) Pulse Ox O2 Delivery O2 Flow Rate FiO2 01/29/21 08:39 127/83 01/29/21 08:00 98.4 100 20 127/83 (98) 92 01/29/21 04:00 91 01/29/21 04:00 97.9 90 20 137/77 (97) 92 01/29/21 00:00 86 01/29/21 00:00 96.0 90 20 132/86 (101) 94 01/28/21 22:08 86 20 132/86 94 01/28/21 21:38 90 18 147/90 100 01/28/21 21:00 Room Air 01/28/21 20:00 97.5 90 18 147/90 (109) 100 01/28/21 20:00 96 01/28/21 16:00 98.1 91 20 132/96 (108) 100 01/28/21 16:00 90 01/28/21 12:00 95 01/28/21 12:00 98.1 102 20 141/94 (110) 96 Height (Feet): 6 Height (Inches): 0.00 Weight (Pounds): 180 HEENT: mucous membranes moist Respiratory/Chest: lungs clear Cardiovascular: normal rate Abdomen: soft, non tender Extremities: no edema Neurologic/Psychiatric: alert, responsive Current Medications Medications (Trade) Dose Ordered Sig/Arslan Route PRN Reason Start Time Stop Time Status Last Admin Dose Admin Acetaminophen (Tylenol) 500 mg EVERY 6 HOURS PRN ORAL Mild Pain (Pain Scale 1-3) 01/25/21 21:15 02/24/21 21:14 01/26/21 20:21 Aspirin (ASA) 81 mg DAILY ORAL 01/26/21 10:30 03/12/21 10:29 01/29/21 08:38 Dextrose (Dextrose 50%) 25 ml Q30M PRN IV Hypoglycemia 01/25/21 21:45 04/25/21 21:44 Dextrose (Dextrose 50%) 50 ml Q30M PRN IV Hypoglycemia 01/25/21 21:45 04/25/21 21:44 Docusate Sodium (Colace) 100 mg THREE TIMES A DAY ORAL 01/26/21 13:00 02/25/21 12:59 01/29/21 08:38 Glipizide (Glucotrol) 5 mg BIAC ORAL 01/26/21 06:30 02/25/21 06:29 01/29/21 06:26 Insulin Aspart (NovoLOG) BEFORE MEALS AND HS SUBQ 01/26/21 11:30 04/26/21 11:29 01/29/21 06:25 Insulin Detemir (Levemir) 16 units DAILY SUBQ 01/27/21 09:00 04/27/21 08:59 01/29/21 08:40 Lisinopril (ZestriL) 10 mg DAILY ORAL 01/27/21 09:00 02/26/21 08:59 01/29/21 08:39 Lorazepam (Ativan 2mg/ml 1ml) 1 mg Q6H PRN IVP For Anxiety 01/26/21 21:30 02/02/21 21:29 01/28/21 21:38 Mirtazapine (Remeron) 15 mg BEDTIME ORAL 01/27/21 21:00 04/26/21 21:29 01/28/21 20:49 Pantoprazole (Protonix) 40 mg EVERY 12 HOURS ORAL 01/26/21 21:00 02/25/21 20:59 01/29/21 08:38 Sitagliptin Phosphate (Januvia) 100 mg ACBREAKFAST ORAL 01/27/21 06:30 02/26/21 06:29 01/29/21 06:26 Vancomycin HCl 300 ml @ 150 mls/hr Q12H IVPB 01/28/21 01:00 02/02/21 00:59 01/29/21 01:56 Vancomycin HCl (Vanco pharmacy to dose) 1 ea DAILY PRN MISC Per rx protocol 01/26/21 11:15 02/25/21 11:14 Octavio Allen MD Jan 29, 2021 09:44
[2021-01-29 10:09] LABS: BASOPHILS % (AUTO) 3.3 % (0.0-2.0); HEMATOCRIT 46.4 % (42.0-52.0); HEMOGLOBIN 14.8 G/DL (14.2-18.0); LYMPHOCYTES % (AUTO) 6.8 % (20.0-45.0); MEAN CORPUSCULAR VOLUME 82 FL (80-99); MONOCYTES % (AUTO) 11.7 % (1.0-10.0); NEUTROPHILS % (AUTO) 77.3 % (45.0-75.0); PLATELET COUNT 267 K/UL (150-450); RED BLOOD COUNT 5.66 M/UL (4.70-6.10); RED CELL DISTRIBUTION WIDTH 13.7 % (11.6-14.8); WHITE BLOOD COUNT 11.1 K/UL (4.8-10.8)
[2021-01-29 10:45] LABS: ALANINE AMINOTRANSFERASE 43 U/L (12-78); ALBUMIN 3.3 G/DL (3.4-5.0); ALBUMIN/GLOBULIN RATIO 0.9 (1.0-2.7); ALKALINE PHOSPHATASE 94 U/L (46-116); ANION GAP 10 mmol/L (5-15); ASPARTATE AMINO TRANSFERASE 18 U/L (15-37); BILIRUBIN,TOTAL 0.4 MG/DL (0.2-1.0); BLOOD UREA NITROGEN 10 mg/dL (7-18); CALCIUM 9.1 MG/DL (8.5-10.1); CARBON DIOXIDE 24 MMOL/L (21-32); CHLORIDE 104 MMOL/L (98-107); CREATININE 0.8 MG/DL (0.55-1.30); PHOSPHORUS 3.8 MG/DL (2.5-4.9); POTASSIUM 3.8 MMOL/L (3.5-5.1); SODIUM 138 MMOL/L (136-145)
[2021-01-29 12:00] VITALS: BP 122/86
--- NOTE | 2021-01-29 12:32 | Nephrology Progress Note ---
Assessment/Plan Problem List: (1) CARRIE (acute kidney injury) (2) Anemia (3) Diabetes mellitus, new onset (4) Altered mental status (5) Electrolyte imbalance (6) HTN (hypertension) Assessment Renal failure Acute encephalopathy, likely metabolic Diabetes mellitus [id number] Electrolyte imbalance Hypertension Anemia Plan January 29: Labs reviewed. Renal parameters stable. Blood sugar remains elevated. Continue per Endo. Blood pressure stable. January 28: No CHEM panel drawn today. Medication list reviewed. Blood pressure is stable. Blood sugar better controlled. Continue per furniture sales consultant. Check lab tomorrow. January 27: Serum creatinine normalized. Electrolytes within normal range. Blood sugar remains high. Blood pressure appears more stable. Labs reviewed. Medication list reviewed. Continue per consultants. Brain MRI: IMPRESSION: MILD AGE-RELATED SENESCENT CHANGES. 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 TINY FOCI OF SUSCEPTIBILITY ARTIFACT IS NOTED IN THE ROBLES RADIATA REGION BILATERALLY WHICH COULD BE A TINY OLD PETECHIAL HEMORRHAGES. NO ACUTE INFARCT, HEMORRHAGE, MASS EFFECT OR SHIFT. MILD RIGHT MASTOID AIRSPACE DISEASE. Previously suggestions: Hydration with hypotonic solution Keep the blood pressure and blood sugar in check Anemia work-up Start aspirin, beta-blockers, gastric support PPI and stool softener Per orders Subjective ROS Limited/Unobtainable: No Constitutional: Reports: malaise, weakness Objective Objective Last 24 Hour Vital Signs Date Time Temp Pulse Resp B/P (MAP) Pulse Ox O2 Delivery O2 Flow Rate FiO2 01/29/21 12:00 98.1 103 20 122/86 (98) 98 01/29/21 12:00 105 01/29/21 09:00 Room Air 01/29/21 08:39 127/83 01/29/21 08:00 100 01/29/21 08:00 98.4 100 20 127/83 (98) 92 01/29/21 04:00 91 01/29/21 04:00 97.9 90 20 137/77 (97) 92 01/29/21 00:00 86 01/29/21 00:00 96.0 90 20 132/86 (101) 94 01/28/21 22:08 86 20 132/86 94 01/28/21 21:38 90 18 147/90 100 01/28/21 21:00 Room Air 01/28/21 20:00 97.5 90 18 147/90 (109) 100 01/28/21 20:00 96 01/28/21 16:00 98.1 91 20 132/96 (108) 100 01/28/21 16:00 90 Intake and Output 01/28/21 01/29/21 19:00 07:00 Intake Total 1600 ml Output Total 2400 ml 900 ml Balance -800 ml -900 ml Intake Oral 1600 ml Output Urine Total 2400 ml 900 ml # Voids 5 5 # Bowel Movements 1 Current Medications Medications (Trade) Dose Ordered Sig/Arslan Route PRN Reason Start Time Stop Time Status Last Admin Dose Admin Acetaminophen (Tylenol) 500 mg EVERY 6 HOURS PRN ORAL Mild Pain (Pain Scale 1-3) 01/25/21 21:15 02/24/21 21:14 01/26/21 20:21 Aspirin (ASA) 81 mg DAILY ORAL 01/26/21 10:30 03/12/21 10:29 01/29/21 08:38 Dextrose (Dextrose 50%) 25 ml Q30M PRN IV Hypoglycemia 01/25/21 21:45 04/25/21 21:44 Dextrose (Dextrose 50%) 50 ml Q30M PRN IV Hypoglycemia 01/25/21 21:45 04/25/21 21:44 Docusate Sodium (Colace) 100 mg THREE TIMES A DAY ORAL 01/26/21 13:00 02/25/21 12:59 01/29/21 08:38 Glipizide (Glucotrol) 5 mg BIAC ORAL 01/26/21 06:30 02/25/21 06:29 01/29/21 06:26 Insulin Aspart (NovoLOG) BEFORE MEALS AND HS SUBQ 01/26/21 11:30 04/26/21 11:29 01/29/21 11:48 Insulin Detemir (Levemir) 16 units DAILY SUBQ 01/27/21 09:00 04/27/21 08:59 01/29/21 08:40 Lisinopril (ZestriL) 10 mg DAILY ORAL 01/27/21 09:00 02/26/21 08:59 01/29/21 08:39 Lorazepam (Ativan 2mg/ml 1ml) 1 mg Q6H PRN IVP For Anxiety 01/26/21 21:30 02/02/21 21:29 01/28/21 21:38 Mirtazapine (Remeron) 15 mg BEDTIME ORAL 01/27/21 21:00 04/26/21 21:29 01/28/21 20:49 Pantoprazole (Protonix) 40 mg EVERY 12 HOURS ORAL 01/26/21 21:00 02/25/21 20:59 01/29/21 08:38 Sitagliptin Phosphate (Januvia) 100 mg ACBREAKFAST ORAL 01/27/21 06:30 02/26/21 06:29 01/29/21 06:26 Laboratory Tests 01/29/21 10:00: White Blood Count 11.1H, Red Blood Count 5.66, Hemoglobin 14.8, Hematocrit 46.4, Mean Corpuscular Volume 82, Mean Corpuscular Hemoglobin 26.1L, Mean Corpuscular Hemoglobin Concent 31.8L, Red Cell Distribution Width 13.7, Platelet Count 267, Mean Platelet Volume 7.5, Neutrophils (%) (Auto) 77.3H, Lymphocytes (%) (Auto) 6.8L, Monocytes (%) (Auto) 11.7H, Eosinophils (%) (Auto) 1.0, Basophils (%) (Auto) 3.3H, Sodium Level 138, Potassium Level 3.8, Chloride Level 104, Carbon D ioxide Level 24, Anion Gap 10, Blood Urea Nitrogen 10, Creatinine 0.8, Estimat Glomerular Filtration Rate > 60, Glucose Level 316H, Calcium Level 9.1, Phosphorus Level 3.8, Magnesium Level 1.9, Total Bilirubin 0.4, Aspartate Amino Transf (AST/SGOT) 18, Alanine Aminotransferase (ALT/SGPT) 43, Alkaline Phosphatase 94, C-Reactive Protein, Quantitative 2.2H, Pro-B-Type Natriuretic Peptide 29, Total Protein 7.0, Albumin 3.3L, Globulin 3.7, Albumin/Globulin Ratio 0.9L Height (Feet): 6 Height (Inches): 0.00 Weight (Pounds): 180 General Appearance: confused Cardiovascular: tachycardia Respiratory/Chest: decreased breath sounds Abdomen: distended Jorje Paz MD Jan 29, 2021 12:32
--- NOTE | 2021-01-29 13:26 | Neurology Progress Note ---
Interim History Interim History ROS Limited/Unobtainable: No Events: sitter at bedside Objective Physical Exam Last Vital Signs Date Time Temp Pulse Resp B/P (MAP) Pulse Ox O2 Delivery O2 Flow Rate FiO2 01/29/21 12:00 98.1 103 20 122/86 (98) 98 01/29/21 09:00 Room Air 01/25/21 16:48 2.0 01/25/21 15:00 89 Laboratory Tests Test 01/29/21 10:00 01/29/21 12:50 White Blood Count 11.1 K/UL (4.8-10.8) H Red Blood Count 5.66 M/UL (4.70-6.10) Hemoglobin 14.8 G/DL (14.2-18.0) Hematocrit 46.4 % (42.0-52.0) Mean Corpuscular Volume 82 FL (80-99) Mean Corpuscular Hemoglobin 26.1 PG (27.0-31.0) L Mean Corpuscular Hemoglobin Concent 31.8 G/DL (32.0-36.0) L Red Cell Distribution Width 13.7 % (11.6-14.8) Platelet Count 267 K/UL (150-450) Mean Platelet Volume 7.5 FL (6.5-10.1) Neutrophils (%) (Auto) 77.3 % (45.0-75.0) H Lymphocytes (%) (Auto) 6.8 % (20.0-45.0) L Monocytes (%) (Auto) 11.7 % (1.0-10.0) H Eosinophils (%) (Auto) 1.0 % (0.0-3.0) Basophils (%) (Auto) 3.3 % (0.0-2.0) H Sodium Level 138 MMOL/L (136-145) Potassium Level 3.8 MMOL/L (3.5-5.1) Chloride Level 104 MMOL/L (98-107) Carbon Dioxide Level 24 MMOL/L (21-32) Anion Gap 10 mmol/L (5-15) Blood Urea Nitrogen 10 mg/dL (7-18) Creatinine 0.8 MG/DL (0.55-1.30) Estimat Glomerular Filtration Rate > 60 mL/min (>60) Glucose Level 316 MG/DL (74-106) H Calcium Level 9.1 MG/DL (8.5-10.1) Phosphorus Level 3.8 MG/DL (2.5-4.9) Magnesium Level 1.9 MG/DL (1.8-2.4) Total Bilirubin 0.4 MG/DL (0.2-1.0) Aspartate Amino Transf (AST/SGOT) 18 U/L (15-37) Alanine Aminotransferase (ALT/SGPT) 43 U/L (12-78) Alkaline Phosphatase 94 U/L (46-116) C-Reactive Protein, Quantitative 2.2 mg/dL (0.00-0.90) H Pro-B-Type Natriuretic Peptide 29 pg/mL (0-125) Total Protein 7.0 G/DL (6.4-8.2) Albumin 3.3 G/DL (3.4-5.0) L Globulin 3.7 g/dL Albumin/Globulin Ratio 0.9 (1.0-2.7) L Vancomycin Level Trough Pending Neurologic Exam Objective PE Vital signs stable Left Orbit abrasion General: No acute distress calm and cooperative Neuro: Awake Alert to himself disoriented to place and time No insight to situation, Comprehension: not intact. Language parameters intact. Cranial nerves II-XII tested PERRLA, No nystagmus with gaze. No facial droop or asymmetry noted Tongue is midline. Hearing intact Motor: No involuntary movements, Bilat upper extremities 3/5, lower extremities 3/5 Sensation intact. gait not assessed Impression/Recommendations Status: progressing Diagnostic Impression LAB Reviewed IMAGING: CT Head: No evidence of acute intracranial hemorrhage, mass effect or cortical edema. MRI recommended for more sensitive evaluation as clinically indicated. Atrophy and nonspecific periventricular hypoattenuation suggestive of chronic ischemic microvascular changes. Chronic appearing lacunar infarct in the left superior caudate. MRI Brain: MILD AGE-RELATED SENESCENT CHANGES. 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 TINY FOCI OF SUSCEPTIBILITY ARTIFACT IS NOTED IN THE ROBLES RADIATA REGION BILATERALLY WHICH COULD BE A TINY OLD PETECHIAL HEMORRHAGES. NO ACUTE INFARCT, HEMORRHAGE, MASS EFFECT OR SHIFT.MILD RIGHT MASTOID AIRSPACE DISEASE. ASSESSMENT AND REC'S 1. Old lacunar Infarct --> CT head noted, MRI Brain and MRA Head and Neck -ordered 2. 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 3. Fall --> unknown etiology, order pt and ot pt doing well 4. Questionable Syncope --> was found down at the grocery store. Cards rec's appreciated --> carotid us no stenosis 5. Diabetes Thank you for allowing us to participate in patient's care, plan of care was discussed with Dr. Jeff White who agrees. Delores Rivera FASHION INTERN Jan 29, 2021 13:26
[2021-01-29] MEDS: LORazepam Inj 2mg/ml 1ml IVP PRN (15:41)
--- NOTE | 2021-01-29 16:38 | Cardiac Electrophysiology PN ---
Assessment/Plan Assessment/Plan 1. Syncopal episodes. Etiology is not clear. EKG does not show any acute ischemic changes. There is no evidence of bradycardia or heart block on the telemetry. The patient is not dehydrated. BUN of 14, creatinine 0.9. His glucose however is uncontrolled at 414. Urine toxicology screen is negative. Ruled out for [place] protocol. ECho Nl EF 55%. The patient also is being followed by Neurology 2. Hypertension, on Lisinopril 10 mg po daily 3. Diabetes, on glipizide. 4. Azotemia, resolved Subjective Subjective On RA in SR. No CP. Was agitated earlier. Objective Last 24 Hour Vital Signs Date Time Temp Pulse Resp B/P (MAP) Pulse Ox O2 Delivery O2 Flow Rate FiO2 01/29/21 16:11 88 22 135/89 95 01/29/21 15:41 100 22 135/89 95 01/29/21 12:00 98.1 103 20 122/86 (98) 98 01/29/21 12:00 105 01/29/21 09:00 Room Air 01/29/21 08:39 127/83 01/29/21 08:00 100 01/29/21 08:00 98.4 100 20 127/83 (98) 92 01/29/21 04:00 91 01/29/21 04:00 97.9 90 20 137/77 (97) 92 01/29/21 00:00 86 01/29/21 00:00 96.0 90 20 132/86 (101) 94 01/28/21 22:08 86 20 132/86 94 01/28/21 21:38 90 18 147/90 100 01/28/21 21:00 Room Air 01/28/21 20:00 97.5 90 18 147/90 (109) 100 01/28/21 20:00 96 Intake and Output 01/28/21 01/29/21 19:00 07:00 Intake Total 1600 ml Output Total 2400 ml 900 ml Balance -800 ml -900 ml Intake Oral 1600 ml Output Urine Total 2400 ml 900 ml # Voids 5 5 # Bowel Movements 1 Laboratory Tests Test 01/29/21 10:00 01/29/21 12:50 White Blood Count 11.1 K/UL (4.8-10.8) H Red Blood Count 5.66 M/UL (4.70-6.10) Hemoglobin 14.8 G/DL (14.2-18.0) Hematocrit 46.4 % (42.0-52.0) Mean Corpuscular Volume 82 FL (80-99) Mean Corpuscular Hemoglobin 26.1 PG (27.0-31.0) L Mean Corpuscular Hemoglobin Concent 31.8 G/DL (32.0-36.0) L Red Cell Distribution Width 13.7 % (11.6-14.8) Platelet Count 267 K/UL (150-450) Mean Platelet Volume 7.5 FL (6.5-10.1) Neutrophils (%) (Auto) 77.3 % (45.0-75.0) H Lymphocytes (%) (Auto) 6.8 % (20.0-45.0) L Monocytes (%) (Auto) 11.7 % (1.0-10.0) H Eosinophils (%) (Auto) 1.0 % (0.0-3.0) Basophils (%) (Auto) 3.3 % (0.0-2.0) H Sodium Level 138 MMOL/L (136-145) Potassium Level 3.8 MMOL/L (3.5-5.1) Chloride Level 104 MMOL/L (98-107) Carbon Dioxide Level 24 MMOL/L (21-32) Anion Gap 10 mmol/L (5-15) Blood Urea Nitrogen 10 mg/dL (7-18) Creatinine 0.8 MG/DL (0.55-1.30) Estimat Glomerular Filtration Rate > 60 mL/min (>60) Glucose Level 316 MG/DL (74-106) H Calcium Level 9.1 MG/DL (8.5-10.1) Phosphorus Level 3.8 MG/DL (2.5-4.9) Magnesium Level 1.9 MG/DL (1.8-2.4) Total Bilirubin 0.4 MG/DL (0.2-1.0) Aspartate Amino Transf (AST/SGOT) 18 U/L (15-37) Alanine Aminotransferase (ALT/SGPT) 43 U/L (12-78) Alkaline Phosphatase 94 U/L (46-116) C-Reactive Protein, Quantitative 2.2 mg/dL (0.00-0.90) H Pro-B-Type Natriuretic Peptide 29 pg/mL (0-125) Total Protein 7.0 G/DL (6.4-8.2) Albumin 3.3 G/DL (3.4-5.0) L Globulin 3.7 g/dL Albumin/Globulin Ratio 0.9 (1.0-2.7) L Vancomycin Level Trough 11.2 ug/mL (5.0-12.0) Objective HEAD AND NECK: No JVD. He has bruising around his left eye. LUNGS: Clear. CARDIOVASCULAR: Shows regular S1 and S2 with no gallop or murmur. ABDOMEN: Soft. EXTREMITIES: No pitting edema. Massimo Escobar MD Jan 29, 2021 16:38
--- NOTE | 2021-01-29 17:47 | General Progress Note ---
Subjective ROS Limited/Unobtainable: Yes Allergies: Coded Allergies: No Known Allergies (Unverified , 01/25/21) Subjective events noted glucose values are elevated Item Value Date Time Bedside Blood Glucose 292 mg/dl H 01/29/21 1547 Bedside Blood Glucose 292 mg/dl H 01/29/21 1148 Bedside Blood Glucose 311 mg/dl H 01/29/21 0840 Bedside Blood Glucose 190 mg/dl H 01/29/21 0625 Bedside Blood Glucose 128 mg/dl H 01/28/21 2100 Bedside Blood Glucose 222 mg/dl H 01/28/21 1631 Bedside Blood Glucose 337 mg/dl H 01/28/21 1202 Objective Last 24 Hour Vital Signs Date Time Temp Pulse Resp B/P (MAP) Pulse Ox O2 Delivery O2 Flow Rate FiO2 01/29/21 16:11 88 22 135/89 95 01/29/21 15:41 100 22 135/89 95 01/29/21 12:00 98.1 103 20 122/86 (98) 98 01/29/21 12:00 105 01/29/21 09:00 Room Air 01/29/21 08:39 127/83 01/29/21 08:00 100 01/29/21 08:00 98.4 100 20 127/83 (98) 92 01/29/21 04:00 91 01/29/21 04:00 97.9 90 20 137/77 (97) 92 01/29/21 00:00 86 01/29/21 00:00 96.0 90 20 132/86 (101) 94 01/28/21 22:08 86 20 132/86 94 01/28/21 21:38 90 18 147/90 100 01/28/21 21:00 Room Air 01/28/21 20:00 97.5 90 18 147/90 (109) 100 01/28/21 20:00 96 Intake and Output 01/28/21 01/29/21 19:00 07:00 Intake Total 1600 ml Output Total 2400 ml 900 ml Balance -800 ml -900 ml Intake Oral 1600 ml Output Urine Total 2400 ml 900 ml # Voids 5 5 # Bowel Movements 1 Laboratory Tests 01/29/21 10:00: White Blood Count 11.1H, Red Blood Count 5.66, Hemoglobin 14.8, Hematocrit 46.4, Mean Corpuscular Volume 82, Mean Corpuscular Hemoglobin 26.1L, Mean Corpuscular Hemoglobin Concent 31.8L, Red Cell Distribution Width 13.7, Platelet Count 267, Mean Platelet Volume 7.5, Neutrophils (%) (Auto) 77.3H, Lymphocytes (%) (Auto) 6.8L, Monocytes (%) (Auto) 11.7H, Eosinophils (%) (Auto) 1.0, Basophils (%) (Auto) 3.3H, Sodium Level 138, Potassium Level 3.8, Chloride Level 104, Carbon Dioxide Level 24, Anion Gap 10, Blood Urea Nitrogen 10, Creatinine 0.8, Estimat Glomerular Filtration Rate > 60, Glucose Level 316H, Calcium Level 9.1, Phosphorus Level 3.8, Magnesium Level 1.9, Total Bilirubin 0.4, Aspartate Amino Transf (AST/SGOT) 18, Alanine Aminotransferase (ALT/SGPT) 43, Alkaline Phosphatase 94, C-Reactive Protein, Quantitative 2.2H, Pro-B-Type Natriuretic Peptide 29, Total Protein 7.0, Albumin 3.3L, Globulin 3.7, Albumin/Globulin Ratio 0.9L 01/29/21 12:50: Vancomycin Level Trough 11.2 Height (Feet): 6 Height (Inches): 0.00 Weight (Pounds): 180 General Appearance: no apparent distress Neck: normal alignment Cardiovascular: normal rate Abdomen: normal bowel sounds Objective Current Medications Medications (Trade) Dose Ordered Sig/Arslan Route PRN Reason Start Time Stop Time Status Last Admin Dose Admin Acetaminophen (Tylenol) 500 mg EVERY 6 HOURS PRN ORAL Mild Pain (Pain Scale 1-3) 01/25/21 21:15 02/24/21 21:14 01/26/21 20:21 Aspirin (ASA) 81 mg DAILY ORAL 01/26/21 10:30 03/12/21 10:29 01/29/21 08:38 Dextrose (Dextrose 50%) 25 ml Q30M PRN IV Hypoglycemia 01/25/21 21:45 04/25/21 21:44 Dextrose (Dextrose 50%) 50 ml Q30M PRN IV Hypoglycemia 01/25/21 21:45 04/25/21 21:44 Docusate Sodium (Colace) 100 mg THREE TIMES A DAY ORAL 01/26/21 13:00 02/25/21 12:59 01/29/21 13:34 Glipizide (Glucotrol) 5 mg BIAC ORAL 01/26/21 06:30 02/25/21 06:29 01/29/21 15:41 Insulin Aspart (NovoLOG) BEFORE MEALS AND HS SUBQ 01/26/21 11:30 04/26/21 11:29 01/29/21 15:47 Insulin Detemir (Levemir) 16 units DAILY SUBQ 01/27/21 09:00 04/27/21 08:59 01/29/21 08:40 Lisinopril (ZestriL) 10 mg DAILY ORAL 01/27/21 09:00 02/26/21 08:59 01/29/21 08:39 Lorazepam (Ativan 2mg/ml 1ml) 1 mg Q6H PRN IVP For Anxiety 01/26/21 21:30 02/02/21 21:29 01/29/21 15:41 Mirtazapine (Remeron) 15 mg BEDTIME ORAL 01/27/21 21:00 04/26/21 21:29 01/28/21 20:49 Pantoprazole (Protonix) 40 mg EVERY 12 HOURS ORAL 01/26/21 21:00 02/25/21 20:59 01/29/21 08:38 Sitagliptin Phosphate (Januvia) 100 mg ACBREAKFAST ORAL 01/27/21 06:30 02/26/21 06:29 01/29/21 06:26 Assessment/Plan Problem List: (1) Diabetes mellitus, new onset ICD Codes: E11.9 - Type 2 diabetes mellitus without complications SNOMED: 62541754, 220296211 (2) Altered mental status ICD Codes: R41.82 - Altered mental status, unspecified SNOMED: 964261027 (3) Lactic acidosis ICD Codes: E87.2 - Acidosis SNOMED: 39145247 Status: progressing Assessment/Plan: avoid Metformin due to lactic acidosis increase Levemir to 20 units daily add Novolog 6 units ac tid continue Januvia 100 mg daily continue Glipizide 5 mg bid continue Novolog sliding scale ac hs Cholo Solano MD Jan 29, 2021 17:46
[2021-01-29 20:00] VITALS: BP 137/86
--- NOTE | 2021-01-29 22:33 | General Progress Note ---
Subjective ROS Limited/Unobtainable: Yes Allergies: Coded Allergies: No Known Allergies (Unverified , 01/25/21) Objective Last 24 Hour Vital Signs Date Time Temp Pulse Resp B/P (MAP) Pulse Ox O2 Delivery O2 Flow Rate FiO2 01/29/21 20:00 101 01/29/21 16:11 88 22 135/89 95 01/29/21 16:00 112 01/29/21 16:00 121 01/29/21 15:41 100 22 135/89 95 01/29/21 12:00 98.1 103 20 122/86 (98) 98 01/29/21 12:00 105 01/29/21 09:00 Room Air 01/29/21 08:39 127/83 01/29/21 08:00 100 01/29/21 08:00 98.4 100 20 127/83 (98) 92 01/29/21 04:00 91 01/29/21 04:00 97.9 90 20 137/77 (97) 92 01/29/21 00:00 86 01/29/21 00:00 96.0 90 20 132/86 (101) 94 Intake and Output 01/28/21 01/29/21 19:00 07:00 Intake Total 1600 ml Output Total 2400 ml 900 ml Balance -800 ml -900 ml Intake Oral 1600 ml Output Urine Total 2400 ml 900 ml # Voids 5 5 # Bowel Movements 1 Laboratory Tests 01/29/21 10:00: White Blood Count 11.1H, Red Blood Count 5.66, Hemoglobin 14.8, Hematocrit 46.4, Mean Corpuscular Volume 82, Mean Corpuscular Hemoglobin 26.1L, Mean Corpuscular Hemoglobin Concent 31.8L, Red Cell Distribution Width 13.7, Platelet Count 267, Mean Platelet Volume 7.5, Neutrophils (%) (Auto) 77.3H, Lymphocytes (%) (Auto) 6.8L, Monocytes (%) (Auto) 11.7H, Eosinophils (%) (Auto) 1.0, Basophils (%) (Auto) 3.3H, Sodium Level 138, Potassium Level 3.8, Chloride Level 104, Carbon Dioxide Level 24, Anion Gap 10, Blood Urea Nitrogen 10, Creatinine 0.8, Estimat Glomerular Filtration Rate > 60, Glucose Level 316H, Calcium Level 9.1, Phosphorus Level 3.8, Magnesium Level 1.9, Total Bilirubin 0.4, Aspartate Amino Transf (AST/SGOT) 18, Alanine Aminotransferase (ALT/SGPT) 43, Alkaline Phosphatase 94, C-Reactive Protein, Quantitative 2.2H, Pro-B-Type Natriuretic Peptide 29, Total Protein 7.0, Albumin 3.3L, Globulin 3.7, Albumin/Globulin Ratio 0.9L 01/29/21 12:50: Vancomycin Level Trough 11.2 Height (Feet): 6 Height (Inches): 0.00 Weight (Pounds): 180 Assessment/Plan Problem List: (1) Altered mental status ICD Codes: R41.82 - Altered mental status, unspecified SNOMED: 497305173 (2) Diabetes mellitus, new onset ICD Codes: E11.9 - Type 2 diabetes mellitus without complications SNOMED: 60727208, 291048139 (3) Anemia ICD Codes: D64.9 - Anemia, unspecified SNOMED: 315792424 (4) CARRIE (acute kidney injury) ICD Codes: N17.9 - Acute kidney failure, unspecified SNOMED: 8176714, 38978320 (5) Electrolyte imbalance ICD Codes: E87.8 - Other disorders of electrolyte and fluid balance, not elsewhere classified SNOMED: 908930277 (6) HTN (hypertension) ICD Codes: I10 - Essential (primary) hypertension SNOMED: 13517041 Status: progressing Assessment/Plan: ams syncope niddm azotemia reviewed chart and labs afebrile Tylor Lo MD Jan 29, 2021 22:33
[2021-01-30] VITALS: BP 135/88
[2021-01-30 04:00] VITALS: BP 137/90
[2021-01-30] MEDS: GlipiZIDE 5mg tab ORAL SCH ×2 (06:20→16:26)
[2021-01-30] MEDS: NovoLOG Insulin Flexpen SUBQ SCH ×7 (06:27→21:25)
[2021-01-30] MEDS: LORazepam Inj 2mg/ml 1ml IVP PRN (06:42)
--- NOTE | 2021-01-30 07:32 | General Progress Note ---
Subjective ROS Limited/Unobtainable: Yes Allergies: Coded Allergies: No Known Allergies (Unverified , 01/25/21) Subjective events noted glucose values still elevated Item Value Date Time Bedside Blood Glucose 259 mg/dl H 01/30/21 0630 Bedside Blood Glucose 174 mg/dl H 01/29/21 2206 Bedside Blood Glucose 292 mg/dl H 01/29/21 1630 Bedside Blood Glucose 292 mg/dl H 01/29/21 1148 Bedside Blood Glucose 311 mg/dl H 01/29/21 0840 Bedside Blood Glucose 190 mg/dl H 01/29/21 0625 Objective Last 24 Hour Vital Signs Date Time Temp Pulse Resp B/P (MAP) Pulse Ox O2 Delivery O2 Flow Rate FiO2 01/30/21 06:42 104 20 137/90 98 01/30/21 04:00 97.5 104 20 137/90 (106) 100 01/30/21 04:00 99 01/30/21 00:00 97.5 94 20 135/88 (104) 100 01/29/21 21:00 Room Air 01/29/21 20:00 101 01/29/21 20:00 97.1 99 20 137/86 (103) 94 01/29/21 16:11 88 22 135/89 95 01/29/21 16:00 112 01/29/21 16:00 121 01/29/21 15:41 100 22 135/89 95 01/29/21 12:00 98.1 103 20 122/86 (98) 98 01/29/21 12:00 105 01/29/21 09:00 Room Air 01/29/21 08:39 127/83 01/29/21 08:00 100 01/29/21 08:00 98.4 100 20 127/83 (98) 92 Intake and Output 01/29/21 01/30/21 19:00 07:00 Intake Total 840 ml Output Total 800 ml 500 ml Balance 40 ml -500 ml Intake Oral 840 ml Output Urine Total 800 ml 500 ml Laboratory Tests 01/29/21 10:00: White Blood Count 11.1H, Red Blood Count 5.66, Hemoglobin 14.8, Hematocrit 46.4, Mean Corpuscular Volume 82, Mean Corpuscular Hemoglobin 26.1L, Mean Corpuscular Hemoglobin Concent 31.8L, Red Cell Distribution Width 13.7, Platelet Count 267, Mean Platelet Volume 7.5, Neutrophils (%) (Auto) 77.3H, Lymphocytes (%) (Auto) 6.8L, Monocytes (%) (Auto) 11.7H, Eosinophils (%) (Auto) 1.0, Basophils (%) (Auto) 3.3H, Sodium Level 138, Potassium Level 3.8, Chloride Level 104, Carbon Dioxide Level 24, Anion Gap 10, Blood Urea Nitrogen 10, Creatinine 0.8, Estimat Glomerular Filtration Rate > 60, Glucose Level 316H, Calcium Level 9.1, Phosphorus Level 3.8, Magnesium Level 1.9, Total Bilirubin 0.4, Aspartate Amino Transf (AST/SGOT) 18, Alanine Aminotransferase (ALT/SGPT) 43, Alkaline Phosphatase 94, C-Reactive Protein, Quantitative 2.2H, Pro-B-Type Natriuretic Peptide 29, Total Protein 7.0, Albumin 3.3L, Globulin 3.7, Albumin/Globulin Ratio 0.9L 01/29/21 12:50: Vancomycin Level Trough 11.2 Height (Feet): 6 Height (Inches): 0.00 Weight (Pounds): 180 General Appearance: no apparent distress Neck: normal alignment Cardiovascular: normal peripheral pulses Respiratory/Chest: lungs clear Abdomen: normal bowel sounds Objective Current Medications Medications (Trade) Dose Ordered Sig/Arslan Route PRN Reason Start Time Stop Time Status Last Admin Dose Admin Acetaminophen (Tylenol) 500 mg EVERY 6 HOURS PRN ORAL Mild Pain (Pain Scale 1-3) 01/25/21 21:15 02/24/21 21:14 01/26/21 20:21 Aspirin (ASA) 81 mg DAILY ORAL 01/26/21 10:30 03/12/21 10:29 01/29/21 08:38 Dextrose (Dextrose 50%) 25 ml Q30M PRN IV Hypoglycemia 01/29/21 18:00 04/29/21 17:59 Dextrose (Dextrose 50%) 50 ml Q30M PRN IV Hypoglycemia 01/29/21 18:00 04/29/21 17:59 Docusate Sodium (Colace) 100 mg THREE TIMES A DAY ORAL 01/26/21 13:00 02/25/21 12:59 01/29/21 13:34 Glipizide (Glucotrol) 5 mg BIAC ORAL 01/26/21 06:30 02/25/21 06:29 01/30/21 06:20 Insulin Aspart (NovoLOG) BEFORE MEALS AND HS SUBQ 01/26/21 11:30 04/26/21 11:29 01/30/21 06:27 Insulin Aspart (NovoLOG) 6 units NOVOTIAC SUBQ 01/30/21 06:30 04/30/21 06:29 Insulin Detemir (Levemir) 20 units DAILY SUBQ 01/30/21 09:00 04/27/21 08:59 Lisinopril (ZestriL) 10 mg DAILY ORAL 01/27/21 09:00 02/26/21 08:59 01/29/21 08:39 Lorazepam (Ativan 2mg/ml 1ml) 1 mg Q6H PRN IVP For Anxiety 01/26/21 21:30 02/02/21 21:29 01/30/21 06:42 Mirtazapine (Remeron) 15 mg BEDTIME ORAL 01/27/21 21:00 04/26/21 21:29 01/29/21 22:07 Pantoprazole (Protonix) 40 mg EVERY 12 HOURS ORAL 01/26/21 21:00 02/25/21 20:59 01/29/21 22:07 Sitagliptin Phosphate (Januvia) 100 mg ACBREAKFAST ORAL 01/27/21 06:30 02/26/21 06:29 01/30/21 06:20 Assessment/Plan Problem List: (1) Diabetes mellitus, new onset ICD Codes: E11.9 - Type 2 diabetes mellitus without complications SNOMED: 48156376, [id number] (2) Altered mental status ICD Codes: R41.82 - Altered mental status, unspecified SNOMED: 447108179 (3) Lactic acidosis ICD Codes: E87.2 - Acidosis SNOMED: 91760524 Status: progressing Assessment/Plan: avoid Metformin due to lactic acidosis increase Levemir to 20 units daily add Novolog 6 units ac tid continue Januvia 100 mg daily continue Glipizide 5 mg bid continue Novolog sliding scale ac hs Cholo Solano MD Jan 30, 2021 07:32
[2021-01-30 07:41] VITALS: BP 121/93
[2021-01-30] MEDS: Lisinopril 10mg tab ORAL SCH (08:37)
[2021-01-30] MEDS: Docusate 100mg cap ORAL SCH ×3 (08:37→17:21)
[2021-01-30] MEDS: Aspirin Baby 81mg ORAL SCH (08:37)
[2021-01-30] MEDS: Levemir Flexpen SUBQ SCH (08:39)
[2021-01-30 11:51] VITALS: BP 138/76
--- NOTE | 2021-01-30 12:21 | Infectious Diseases Prog Note ---
Assessment/Plan Assessment/Plan IMPRESSION: Positive blood culture with Staph Hominis/ contamination Likely has systemic inflammatory response, sepsis. Hypercalcemia. Acute renal failure, hypertension, uncontrolled diabetes mellitus. Has evidence of old lacunar infarct, altered mental status, Syncope &fall. RECOMMENDATION: Observe off antibiotic Subjective ROS Limited/Unobtainable: No Respiratory: Reports: no symptoms Cardiovascular: Reports: no symptoms Gastrointestinal/Abdominal: Reports: no symptoms Genitourinary: Reports: no symptoms Allergies: Coded Allergies: No Known Allergies (Unverified , 01/25/21) Objective Last 24 Hour Vital Signs Date Time Temp Pulse Resp B/P (MAP) Pulse Ox O2 Delivery O2 Flow Rate FiO2 01/30/21 11:52 108 01/30/21 11:51 98.6 70 20 138/76 (96) 95 70 70 01/30/21 09:00 Room Air 01/30/21 08:37 121/93 01/30/21 08:00 94 01/30/21 07:41 97.8 88 20 121/93 (102) 93 88 88 01/30/21 06:42 104 20 137/90 98 01/30/21 04:00 97.5 104 20 137/90 (106) 100 01/30/21 04:00 99 01/30/21 00:00 97.5 94 20 135/88 (104) 100 01/29/21 21:00 Room Air 01/29/21 20:00 101 01/29/21 20:00 97.1 99 20 137/86 (103) 94 01/29/21 16:11 88 22 135/89 95 01/29/21 16:00 112 01/29/21 16:00 121 01/29/21 15:41 100 22 135/89 95 Height (Feet): 6 Height (Inches): 0.00 Weight (Pounds): 180 HEENT: mucous membranes moist Respiratory/Chest: lungs clear Cardiovascular: normal rate, tachycardia Abdomen: soft, non tender Extremities: no edema Neurologic/Psychiatric: alert, responsive Laboratory Tests Test 01/29/21 12:50 Vancomycin Level Trough 11.2 ug/mL (5.0-12.0) Current Medications Medications (Trade) Dose Ordered Sig/Arslan Route PRN Reason Start Time Stop Time Status Last Admin Dose Admin Acetaminophen (Tylenol) 500 mg EVERY 6 HOURS PRN ORAL Mild Pain (Pain Scale 1-3) 01/25/21 21:15 02/24/21 21:14 01/26/21 20:21 Aspirin (ASA) 81 mg DAILY ORAL 01/26/21 10:30 03/12/21 10:29 01/30/21 08:37 Dextrose (Dextrose 50%) 25 ml Q30M PRN IV Hypoglycemia 01/29/21 18:00 04/29/21 17:59 Dextrose (Dextrose 50%) 50 ml Q30M PRN IV Hypoglycemia 01/29/21 18:00 04/29/21 17:59 Docusate Sodium (Colace) 100 mg THREE TIMES A DAY ORAL 01/26/21 13:00 02/25/21 12:59 01/30/21 08:37 Glipizide (Glucotrol) 5 mg BIAC ORAL 01/26/21 06:30 02/25/21 06:29 01/30/21 06:20 Insulin Aspart (NovoLOG) BEFORE MEALS AND HS SUBQ 01/26/21 11:30 04/26/21 11:29 01/30/21 11:40 Insulin Aspart (NovoLOG) 6 units NOVOTIAC SUBQ 01/30/21 06:30 04/30/21 06:29 01/30/21 11:41 Insulin Detemir (Levemir) 20 units DAILY SUBQ 01/30/21 09:00 04/27/21 08:59 01/30/21 08:39 Lisinopril (ZestriL) 10 mg DAILY ORAL 01/27/21 09:00 02/26/21 08:59 01/30/21 08:37 Lorazepam (Ativan 2mg/ml 1ml) 1 mg Q6H PRN IVP For Anxiety 01/26/21 21:30 02/02/21 21:29 01/30/21 06:42 Mirtazapine (Remeron) 15 mg BEDTIME ORAL 01/27/21 21:00 04/26/21 21:29 01/29/21 22:07 Pantoprazole (Protonix) 40 mg EVERY 12 HOURS ORAL 01/26/21 21:00 02/25/21 20:59 01/30/21 08:37 Sitagliptin Phosphate (Januvia) 100 mg ACBREAKFAST ORAL 01/27/21 06:30 4/9/21 06:29 01/30/21 06:20 Octavio Allen MD Jan 30, 2021 12:21
--- NOTE | 2021-01-30 14:09 | Nephrology Progress Note ---
Assessment/Plan Problem List: (1) CARRIE (acute kidney injury) (2) Anemia (3) Diabetes mellitus, new onset (4) Altered mental status (5) Electrolyte imbalance (6) HTN (hypertension) Assessment Renal failure Acute encephalopathy, likely metabolic Diabetes mellitus [id number] Electrolyte imbalance Hypertension Anemia Plan January 30: No labs drawn today. Blood sugar is being managed by remote ruby on rails developer. Will check lab tomorrow. Medication list reviewed. January 29: Labs reviewed. Renal parameters stable. Blood sugar remains elevated. Continue per Endo. Blood pressure stable. January 28: No CHEM panel drawn today. Medication list reviewed. Blood pressure is stable. Blood sugar better controlled. Continue per cosmetic sales consultant. Check lab tomorrow. January 27: Serum creatinine normalized. Electrolytes within normal range. Blood sugar remains high. Blood pressure appears more stable. Labs reviewed. Medication list reviewed. Continue per consultants. Brain MRI: IMPRESSION: MILD AGE-RELATED SENESCENT CHANGES. 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 TINY FOCI OF SUSCEPTIBILITY ARTIFACT IS NOTED IN THE ROBLES RADI[place] REGION BILATERALLY WHICH COULD BE A TINY OLD PETECHIAL HEMORRHAGES. NO ACUTE INFARCT, HEMORRHAGE, MASS EFFECT OR SHIFT. MILD RIGHT MASTOID AIRSPACE DISEASE. Previously suggestions: Hydration with hypotonic solution Keep the blood pressure and blood sugar in check Anemia work-up Start aspirin, beta-blockers, gastric support PPI and stool softener Per orders Subjective ROS Limited/Unobtainable: Yes Objective Objective Last 24 Hour Vital Signs Date Time Temp Pulse Resp B/P (MAP) Pulse Ox O2 Delivery O2 Flow Rate FiO2 01/30/21 11:52 108 01/30/21 11:51 98.6 70 20 138/76 (96) 95 70 70 01/30/21 09:00 Room Air 01/30/21 08:37 121/93 01/30/21 08:00 94 01/30/21 07:41 97.8 88 20 121/93 (102) 93 88 88 01/30/21 06:42 104 20 137/90 98 01/30/21 04:00 97.5 104 20 137/90 (106) 100 01/30/21 04:00 99 01/30/21 00:00 97.5 94 20 135/88 (104) 100 01/29/21 21:00 Room Air 01/29/21 20:00 101 01/29/21 20:00 97.1 99 20 137/86 (103) 94 01/29/21 16:11 88 22 135/89 95 01/29/21 16:00 112 01/29/21 16:00 121 01/29/21 15:41 100 22 135/89 95 Intake and Output 01/29/21 01/30/21 19:00 07:00 Intake Total 840 ml Output Total 800 ml 500 ml Balance 40 ml -500 ml Intake Oral 840 ml Output Urine Total 800 ml 500 ml Current Medications Medications (Trade) Dose Ordered Sig/Arslan Route PRN Reason Start Time Stop Time Status Last Admin Dose Admin Acetaminophen (Tylenol) 500 mg EVERY 6 HOURS PRN ORAL Mild Pain (Pain Scale 1-3) 01/25/21 21:15 02/24/21 21:14 01/26/21 20:21 Aspirin (ASA) 81 mg DAILY ORAL 01/26/21 10:30 03/12/21 10:29 01/30/21 08:37 Dextrose (Dextrose 50%) 25 ml Q30M PRN IV Hypoglycemia 01/29/21 18:00 04/29/21 17:59 Dextrose (Dextrose 50%) 50 ml Q30M PRN IV Hypoglycemia 01/29/21 18:00 04/29/21 17:59 Docusate Sodium (Colace) 100 mg THREE TIMES A DAY ORAL 01/26/21 13:00 02/25/21 12:59 01/30/21 14:00 Glipizide (Glucotrol) 5 mg BIAC ORAL 01/26/21 06:30 02/25/21 06:29 01/30/21 06:20 Insulin Aspart (NovoLOG) BEFORE MEALS AND HS SUBQ 01/26/21 11:30 04/26/21 11:29 01/30/21 11:40 Insulin Aspart (NovoLOG) 6 units NOVOTIAC SUBQ 01/30/21 06:30 04/30/21 06:29 01/30/21 11:41 Insulin Detemir (Levemir) 20 units DAILY SUBQ 01/30/21 09:00 04/27/21 08:59 01/30/21 08:39 Lisinopril (ZestriL) 10 mg DAILY ORAL 01/27/21 09:00 02/26/21 08:59 01/30/21 08:37 Lorazepam (Ativan 2mg/ml 1ml) 1 mg Q6H PRN IVP For Anxiety 01/26/21 21:30 02/02/21 21:29 01/30/21 06:42 Mirtazapine (Remeron) 15 mg BEDTIME ORAL 01/27/21 21:00 04/26/21 21:29 01/29/21 22:07 Pantoprazole (Protonix) 40 mg EVERY 12 HOURS ORAL 01/26/21 21:00 02/25/21 20:59 01/30/21 08:37 Sitagliptin Phosphate (Januvia) 100 mg ACBREAKFAST ORAL 01/27/21 06:30 02/26/21 06:29 01/30/21 06:20 Height (Feet): 6 Height (Inches): 0.00 Weight (Pounds): 180 General Appearance: no apparent distress Respiratory/Chest: decreased breath sounds Abdomen: soft Jorje Paz MD Jan 30, 2021 14:09
--- NOTE | 2021-01-30 15:25 | Cardiac Electrophysiology PN ---
Assessment/Plan Assessment/Plan 1. Syncopal episodes. Etiology is not clear. EKG does not show any acute ischemic changes. There is no evidence of bradycardia or heart block on the telemetry. The patient is not dehydrated. BUN of 14, creatinine 0.9. His glucose however is uncontrolled at 414. Urine toxicology screen is negative. Ruled out for DC protocol. ECho Nl EF 55%. FU by Neurology 2. Hypertension, on Lisinopril 10 mg po daily 3. Diabetes, on glipizide. 4. Azotemia, resolved 5. AMS FU Neuro Subjective Subjective On RA in SR. No CP. Sitter at bedside. Objective Last 24 Hour Vital Signs Date Time Temp Pulse Resp B/P (MAP) Pulse Ox O2 Delivery O2 Flow Rate FiO2 01/30/21 11:52 108 01/30/21 11:51 98.6 70 20 138/76 (96) 95 70 70 01/30/21 09:00 Room Air 01/30/21 08:37 121/93 01/30/21 08:00 94 01/30/21 07:41 97.8 88 20 121/93 (102) 93 88 88 01/30/21 06:42 104 20 137/90 98 01/30/21 04:00 97.5 104 20 137/90 (106) 100 01/30/21 04:00 99 01/30/21 00:00 97.5 94 20 135/88 (104) 100 01/29/21 21:00 Room Air 01/29/21 20:00 101 01/29/21 20:00 97.1 99 20 137/86 (103) 94 01/29/21 16:11 88 22 135/89 95 01/29/21 16:00 112 01/29/21 16:00 121 01/29/21 15:41 100 22 135/89 95 Intake and Output 01/29/21 01/30/21 19:00 07:00 Intake Total 840 ml Output Total 800 ml 500 ml Balance 40 ml -500 ml Intake Oral 840 ml Output Urine Total 800 ml 500 ml Objective HEAD AND NECK: No JVD. He has bruising around his left eye. LUNGS: Clear. CARDIOVASCULAR: Shows regular S1 and S2 with no gallop or murmur. ABDOMEN: Soft. EXTREMITIES: No pitting edema. Massimo Escobar MD Jan 30, 2021 15:25
[2021-01-30 15:59] VITALS: BP 144/93
[2021-01-30 20:00] VITALS: BP 128/80
--- NOTE | 2021-01-30 21:24 | General Progress Note ---
Subjective ROS Limited/Unobtainable: Yes Allergies: Coded Allergies: No Known Allergies (Unverified , 01/25/21) Objective Last 24 Hour Vital Signs Date Time Temp Pulse Resp B/P (MAP) Pulse Ox O2 Delivery O2 Flow Rate FiO2 01/30/21 20:00 98 01/30/21 20:00 97.7 95 18 128/80 (96) 95 70 70 01/30/21 15:59 98.0 70 18 144/93 (110) 95 70 70 01/30/21 15:53 99 01/30/21 11:52 108 01/30/21 11:51 98.6 70 20 138/76 (96) 95 70 70 01/30/21 09:00 Room Air 01/30/21 08:37 121/93 01/30/21 08:00 94 01/30/21 07:41 97.8 88 20 121/93 (102) 93 88 88 01/30/21 06:42 104 20 137/90 98 01/30/21 04:00 97.5 104 20 137/90 (106) 100 01/30/21 04:00 99 01/30/21 00:00 97.5 94 20 135/88 (104) 100 Intake and Output 01/29/21 01/30/21 19:00 07:00 Intake Total 840 ml Output Total 800 ml 500 ml Balance 40 ml -500 ml Intake Oral 840 ml Output Urine Total 800 ml 500 ml Height (Feet): 6 Height (Inches): 0.00 Weight (Pounds): 180 Assessment/Plan Problem List: (1) Altered mental status ICD Codes: R41.82 - Altered mental status, unspecified SNOMED: 942039247 (2) Diabetes mellitus, new onset ICD Codes: E11.9 - Type 2 diabetes mellitus without complications SNOMED: 56113055, 154718091 (3) Anemia ICD Codes: D64.9 - Anemia, unspecified SNOMED: 346153703 (4) CARRIE (acute kidney injury) ICD Codes: N17.9 - Acute kidney failure, unspecified SNOMED: 5235918, 24589745 (5) Electrolyte imbalance ICD Codes: E87.8 - Other disorders of electrolyte and fluid balance, not elsewhere classified SNOMED: 315044515 (6) HTN (hypertension) ICD Codes: I10 - Essential (primary) hypertension SNOMED: 02974735 Status: progressing Assessment/Plan: no arrythmia no fever weak check sugar syncope niddm azotemia Tylor Andujar MD Jan 30, 2021 21:24
[2021-01-31] VITALS: BP 146/97
[2021-01-31 04:00] VITALS: BP 144/88
[2021-01-31] MEDS: NovoLOG Insulin Flexpen SUBQ SCH ×7 (05:55→21:02)
[2021-01-31] MEDS: GlipiZIDE 5mg tab ORAL SCH (05:59)
[2021-01-31 06:19] LABS: ALANINE AMINOTRANSFERASE 32 U/L (12-78); ALBUMIN/GLOBULIN RATIO 0.8 (1.0-2.7); ALKALINE PHOSPHATASE 87 U/L (46-116); ANION GAP 10 mmol/L (5-15); ASPARTATE AMINO TRANSFERASE 16 U/L (15-37); BILIRUBIN,TOTAL 0.4 MG/DL (0.2-1.0); BLOOD UREA NITROGEN 9 mg/dL (7-18); CALCIUM 8.9 MG/DL (8.5-10.1); CARBON DIOXIDE 26 MMOL/L (21-32); CHLORIDE 107 MMOL/L (98-107); CREATININE 0.9 MG/DL (0.55-1.30); PHOSPHORUS 4.4 MG/DL (2.5-4.9); POTASSIUM 3.8 MMOL/L (3.5-5.1); SODIUM 143 MMOL/L (136-145)
--- NOTE | 2021-01-31 07:14 | General Progress Note ---
Subjective ROS Limited/Unobtainable: Yes Allergies: Coded Allergies: No Known Allergies (Unverified , 01/25/21) Subjective events noted glucose values improved sitter at bedside Item Value Date Time Bedside Blood Glucose 188 mg/dl H 01/31/21 0630 Bedside Blood Glucose 199 mg/dl H 01/30/21 2125 Bedside Blood Glucose 120 mg/dl 01/30/21 1630 Bedside Blood Glucose 187 mg/dl H 01/30/21 1141 Bedside Blood Glucose 259 mg/dl H 01/30/21 0839 Bedside Blood Glucose 259 mg/dl H 01/30/21 0630 Objective Last 24 Hour Vital Signs Date Time Temp Pulse Resp B/P (MAP) Pulse Ox O2 Delivery O2 Flow Rate FiO2 01/31/21 04:00 105 01/31/21 04:00 97.7 95 20 144/88 (106) 99 95 70 01/31/21 00:00 96.3 95 18 146/97 (113) 99 95 70 01/30/21 21:00 Room Air 01/30/21 20:00 98 01/30/21 20:00 97.7 95 18 128/80 (96) 95 70 70 01/30/21 15:59 98.0 70 18 144/93 (110) 95 70 70 01/30/21 15:53 99 01/30/21 11:52 108 01/30/21 11:51 98.6 70 20 138/76 (96) 95 70 70 01/30/21 09:00 Room Air 01/30/21 08:37 121/93 01/30/21 08:00 94 01/30/21 07:41 97.8 88 20 121/93 (102) 93 88 88 Intake and Output 01/30/21 01/31/21 19:00 07:00 Intake Total 1200 ml 200 ml Balance 1200 ml 200 ml Intake Oral 1200 ml 200 ml # Voids 3 2 Laboratory Tests 01/31/21 05:36: Sodium Level 143, Potassium Level 3.8, Chloride Level 107, Carbon Dioxide Level 26, Anion Gap 10, Blood Urea Nitrogen 9, Creatinine 0.9, Estimat Glomerular Filtration Rate > 60, Glucose Level 193H, Calcium Level 8.9, Phosphorus Level 4.4, Magnesium Level 2.1, Total Bilirubin 0.4, Aspartate Amino Transf (AST/SGOT) 16, Alanine Aminotransferase (ALT/SGPT) 32, Alkaline Phosphatase 87, Total Protein 6.7, Albumin 3.0L, Globulin 3.7, Albumin/Globulin Ratio 0.8L Height (Feet): 6 Height (Inches): 0.00 Weight (Pounds): 180 General Appearance: no apparent distress Neck: normal alignment Cardiovascular: normal rate Respiratory/Chest: lungs clear Abdomen: normal bowel sounds Pelvis: normal external exam Objective Current Medications Medications (Trade) Dose Ordered Sig/Arslan Route PRN Reason Start Time Stop Time Status Last Admin Dose Admin Acetaminophen (Tylenol) 500 mg EVERY 6 HOURS PRN ORAL Mild Pain (Pain Scale 1-3) 01/25/21 21:15 02/24/21 21:14 01/26/21 20:21 Aspirin (ASA) 81 mg DAILY ORAL 01/26/21 10:30 03/12/21 10:29 01/30/21 08:37 Dextrose (Dextrose 50%) 25 ml Q30M PRN IV Hypoglycemia 01/29/21 18:00 04/29/21 17:59 Dextrose (Dextrose 50%) 50 ml Q30M PRN IV Hypoglycemia 01/29/21 18:00 04/29/21 17:59 Docusate Sodium (Colace) 100 mg THREE TIMES A DAY ORAL 01/26/21 13:00 02/25/21 12:59 01/30/21 17:21 Glipizide (Glucotrol) 5 mg BIAC ORAL 01/26/21 06:30 02/25/21 06:29 01/31/21 05:59 Insulin Aspart (NovoLOG) BEFORE MEALS AND HS SUBQ 01/26/21 11:30 04/26/21 11:29 01/31/21 05:55 Insulin Aspart (NovoLOG) 6 units NOVOTIAC SUBQ 01/30/21 06:30 04/30/21 06:29 01/30/21 16:28 Insulin Detemir (Levemir) 20 units DAILY SUBQ 01/30/21 09:00 04/27/21 08:59 01/30/21 08:39 Lisinopril (ZestriL) 10 mg DAILY ORAL 01/27/21 09:00 02/26/21 08:59 01/30/21 08:37 Lorazepam (Ativan 2mg/ml 1ml) 1 mg Q6H PRN IVP For Anxiety 01/26/21 21:30 02/02/21 21:29 01/30/21 06:42 Mirtazapine (Remeron) 15 mg BEDTIME ORAL 01/27/21 21:00 04/26/21 21:29 01/30/21 21:21 Pantoprazole (Protonix) 40 mg EVERY 12 HOURS ORAL 01/26/21 21:00 02/25/21 20:59 01/30/21 21:21 Sitagliptin Phosphate (Januvia) 100 mg ACBREAKFAST ORAL 01/27/21 06:30 02/26/21 06:29 01/31/21 05:59 Assessment/Plan Problem List: (1) Diabetes mellitus, new onset ICD Codes: E11.9 - Type 2 diabetes mellitus without complications SNOMED: 76559324, 208037450 (2) Altered mental status ICD Codes: R41.82 - Altered mental status, unspecified SNOMED: 729593961 (3) Lactic acidosis ICD Codes: E87.2 - Acidosis SNOMED: 80863598 Status: progressing Assessment/Plan: avoid Metformin due to lactic acidosis continue Levemir 20 units daily continue Novolog 6 units ac tid continue Januvia 100 mg daily DC Glipizide 5 mg bid continue Novolog sliding scale ac hs Cholo Solano MD Jan 31, 2021 07:13
[2021-01-31 08:00] VITALS: BP 138/86
[2021-01-31] MEDS: Docusate 100mg cap ORAL SCH ×3 (08:38→18:03)
[2021-01-31] MEDS: Aspirin Baby 81mg ORAL SCH (08:38)
[2021-01-31] MEDS: Lisinopril 10mg tab ORAL SCH (08:38)
[2021-01-31] MEDS: Levemir Flexpen SUBQ SCH (08:39)
[2021-01-31 12:00] VITALS: BP 116/78
--- NOTE | 2021-01-31 12:05 | Nephrology Progress Note ---
Assessment/Plan Problem List: (1) CARRIE (acute kidney injury) (2) Anemia (3) Diabetes mellitus, new onset (4) Altered mental status (5) Electrolyte imbalance (6) HTN (hypertension) Assessment Renal failure Acute encephalopathy, likely metabolic Diabetes mellitus [id number] Electrolyte imbalance Hypertension Anemia Plan January 31: Labs reviewed. Renal parameters stable. Continue per consultants. January 30: No labs drawn today. Blood sugar is being managed by life science technical officer. Will check lab tomorrow. Medication list reviewed. January 29: Labs reviewed. Renal parameters stable. Blood sugar remains elevated. Continue per Endo. Blood pressure stable. January 28: No CHEM panel drawn today. Medication list reviewed. Blood pressure is stable. Blood sugar better controlled. Continue per eyewear consultant. Check lab tomorrow. January 27: Serum creatinine normalized. Electrolytes within normal range. Blood sugar remains high. Blood pressure appears more stable. Labs reviewed. Medication list reviewed. Continue per consultants. Brain MRI: IMPRESSION: MILD AGE-RELATED SENESCENT CHANGES. 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 TINY FOCI OF SUSCEPTIBILITY ARTIFACT IS NOTED IN THE ROBLES RADIATA REGION BILATERALLY WHICH COULD BE A TINY OLD PETECHIAL HEMORRHAGES. NO ACUTE INFARCT, HEMORRHAGE, MASS EFFECT OR SHIFT. MILD RIGHT MASTOID AIRSPACE DISEASE. Previously suggestions: Hydration with hypotonic solution Keep the blood pressure and blood sugar in check Anemia work-up Start aspirin, beta-blockers, gastric support PPI and stool softener Per orders Subjective ROS Limited/Unobtainable: No Constitutional: Reports: malaise, weakness Objective Objective Last 24 Hour Vital Signs Date Time Temp Pulse Resp B/P (MAP) Pulse Ox O2 Delivery O2 Flow Rate FiO2 01/31/21 09:00 Room Air 01/31/21 08:38 138/86 01/31/21 08:00 93 01/31/21 08:00 96.8 94 18 138/86 (103) 94 94 94 01/31/21 04:00 105 01/31/21 04:00 97.7 95 20 144/88 (106) 99 95 70 01/31/21 00:00 96.3 95 18 146/97 (113) 99 95 70 01/30/21 21:00 Room Air 01/30/21 20:00 98 01/30/21 20:00 97.7 95 18 128/80 (96) 95 70 70 01/30/21 15:59 98.0 70 18 144/93 (110) 95 70 70 01/30/21 15:53 99 Intake and Output 01/30/21 01/31/21 19:00 07:00 Intake Total 1200 ml 200 ml Balance 1200 ml 200 ml Intake Oral 1200 ml 200 ml # Voids 3 2 Current Medications Medications (Trade) Dose Ordered Sig/Arslan Route PRN Reason Start Time Stop Time Status Last Admin Dose Admin Acetaminophen (Tylenol) 500 mg EVERY 6 HOURS PRN ORAL Mild Pain (Pain Scale 1-3) 01/25/21 21:15 02/24/21 21:14 01/26/21 20:21 Aspirin (ASA) 81 mg DAILY ORAL 01/26/21 10:30 03/12/21 10:29 01/31/21 08:38 Dextrose (Dextrose 50%) 25 ml Q30M PRN IV Hypoglycemia 01/29/21 18:00 04/29/21 17:59 Dextrose (Dextrose 50%) 50 ml Q30M PRN IV Hypoglycemia 01/29/21 18:00 04/29/21 17:59 Docusate Sodium (Colace) 100 mg THREE TIMES A DAY ORAL 01/26/21 13:00 02/25/21 12:59 01/31/21 08:38 Insulin Aspart (NovoLOG) BEFORE MEALS AND HS SUBQ 01/26/21 11:30 04/26/21 11:29 01/31/21 11:42 Insulin Aspart (NovoLOG) 6 units NOVOTIAC SUBQ 01/30/21 06:30 04/30/21 06:29 01/31/21 11:45 Insulin Detemir (Levemir) 20 units DAILY SUBQ 01/30/21 09:00 04/27/21 08:59 01/31/21 08:39 Lisinopril (ZestriL) 10 mg DAILY ORAL 01/27/21 09:00 02/26/21 08:59 01/31/21 08:38 Lorazepam (Ativan 2mg/ml 1ml) 1 mg Q6H PRN IVP For Anxiety 01/26/21 21:30 02/02/21 21:29 01/30/21 06:42 Mirtazapine (Remeron) 15 mg BEDTIME ORAL 01/27/21 21:00 04/26/21 21:29 01/30/21 21:21 Pantoprazole (Protonix) 40 mg EVERY 12 HOURS ORAL 01/26/21 21:00 02/25/21 20:59 01/31/21 08:38 Sitagliptin Phosphate (Januvia) 100 mg ACBREAKFAST ORAL 01/27/21 06:30 02/26/21 06:29 01/31/21 05:59 Laboratory Tests 01/31/21 05:36: Sodium Level 143, Potassium Level 3.8, Chloride Level 107, Carbon Dioxide Level 26, Anion Gap 10, Blood Urea Nitrogen 9, Creatinine 0.9, Estimat Glomerular Filtration Rate > 60, Glucose Level 193H, Calcium Level 8.9, Phosphorus Level 4.4, Magnesium Level 2.1, Total Bilirubin 0.4, Aspartate Amino Transf (AST/SGOT) 16, Alanine Aminotransferase (ALT/SGPT) 32, Alkaline Phosphatase 87, Total Protein 6.7, Albumin 3.0L, Globulin 3.7, Albumin/Globulin Ratio 0.8L Height (Feet): 6 Height (Inches): 0.00 Weight (Pounds): 180 Cardiovascular: tachycardia Respiratory/Chest: decreased breath sounds Abdomen: distended Jorje Paz MD Jan 31, 2021 12:05
--- NOTE | 2021-01-31 15:34 | Cardiac Electrophysiology PN ---
Assessment/Plan Assessment/Plan 1. Syncopal episodes. EKG does not show any acute ischemic changes. There is no evidence of bradycardia or heart block on the telemetry. The patient is not dehydrated. His glucose however is uncontrolled at 414. Urine toxicology screen is negative. Ruled out for OR protocol. ECho Nl EF 55%. FU by Neurology 2. Hypertension, on Lisinopril 10 mg po daily 3. Diabetes, on glipizide. 4. Azotemia, resolved 5. AMS FU Neuro DW RN and sitter Subjective Subjective On RA in SR. No CP. Sitter at bedside. Objective Last 24 Hour Vital Signs Date Time Temp Pulse Resp B/P (MAP) Pulse Ox O2 Delivery O2 Flow Rate FiO2 01/31/21 12:00 105 01/31/21 12:00 98.1 97 18 116/78 (91) 93 94 94 01/31/21 09:00 Room Air 01/31/21 08:38 138/86 01/31/21 08:00 93 01/31/21 08:00 96.8 94 18 138/86 (103) 94 94 94 01/31/21 04:00 105 01/31/21 04:00 97.7 95 20 144/88 (106) 99 95 70 01/31/21 00:00 96.3 95 18 146/97 (113) 99 95 70 01/30/21 21:00 Room Air 01/30/21 20:00 98 01/30/21 20:00 97.7 95 18 128/80 (96) 95 70 70 01/30/21 15:59 98.0 70 18 144/93 (110) 95 70 70 01/30/21 15:53 99 Intake and Output 01/30/21 01/31/21 19:00 07:00 Intake Total 1200 ml 200 ml Balance 1200 ml 200 ml Intake Oral 1200 ml 200 ml # Voids 3 2 Laboratory Tests Test 01/31/21 05:36 Sodium Level 143 MMOL/L (136-145) Potassium Level 3.8 MMOL/L (3.5-5.1) Chloride Level 107 MMOL/L (98-107) Carbon Dioxide Level 26 MMOL/L (21-32) Anion Gap 10 mmol/L (5-15) Blood Urea Nitrogen 9 mg/dL (7-18) Creatinine 0.9 MG/DL (0.55-1.30) Estimat Glomerular Filtration Rate > 60 mL/min (>60) Glucose Level 193 MG/DL (74-106) H Calcium Level 8.9 MG/DL (8.5-10.1) Phosphorus Level 4.4 MG/DL (2.5-4.9) Magnesium Level 2.1 MG/DL (1.8-2.4) Total Bilirubin 0.4 MG/DL (0.2-1.0) Aspartate Amino Transf (AST/SGOT) 16 U/L (15-37) Alanine Aminotransferase (ALT/SGPT) 32 U/L (12-78) Alkaline Phosphatase 87 U/L (46-116) Total Protein 6.7 G/DL (6.4-8.2) Albumin 3.0 G/DL (3.4-5.0) L Globulin 3.7 g/dL Albumin/Globulin Ratio 0.8 (1.0-2.7) L Objective HEAD AND NECK: No JVD. He has bruising around his left eye. LUNGS: Clear. CARDIOVASCULAR: Shows regular S1 and S2 with no gallop or murmur. ABDOMEN: Soft. EXTREMITIES: No pitting edema. Massimo Escobar MD Jan 31, 2021 15:34
[2021-01-31 16:00] VITALS: BP 142/93
[2021-01-31 20:00] VITALS: BP 130/65
--- NOTE | 2021-01-31 21:34 | General Progress Note ---
Subjective ROS Limited/Unobtainable: Yes Allergies: Coded Allergies: No Known Allergies (Unverified , 01/25/21) Objective Last 24 Hour Vital Signs Date Time Temp Pulse Resp B/P (MAP) Pulse Ox O2 Delivery O2 Flow Rate FiO2 01/31/21 16:00 91 01/31/21 16:00 98.1 88 18 142/93 (109) 93 88 88 01/31/21 12:00 105 01/31/21 12:00 98.1 97 18 116/78 (91) 93 94 94 01/31/21 09:00 Room Air 01/31/21 08:38 138/86 01/31/21 08:00 93 01/31/21 08:00 96.8 94 18 138/86 (103) 94 94 94 01/31/21 04:00 105 01/31/21 04:00 97.7 95 20 144/88 (106) 99 95 70 01/31/21 00:00 96.3 95 18 146/97 (113) 99 95 70 Intake and Output 01/30/21 01/31/21 19:00 07:00 Intake Total 1200 ml 200 ml Balance 1200 ml 200 ml Intake Oral 1200 ml 200 ml # Voids 3 2 Laboratory Tests 01/31/21 05:36: Sodium Level 143, Potassium Level 3.8, Chloride Level 107, Carbon Dioxide Level 26, Anion Gap 10, Blood Urea Nitrogen 9, Creatinine 0.9, Estimat Glomerular Filtration Rate > 60, Glucose Level 193H, Calcium Level 8.9, Phosphorus Level 4.4, Magnesium Level 2.1, Total Bilirubin 0.4, Aspartate Amino Transf (AST/SGOT) 16, Alanine Aminotransferase (ALT/SGPT) 32, Alkaline Phosphatase 87, Total Protein 6.7, Albumin 3.0L, Globulin 3.7, Albumin/Globulin Ratio 0.8L Height (Feet): 6 Height (Inches): 0.00 Weight (Pounds): 180 Assessment/Plan Problem List: (1) Altered mental status ICD Codes: R41.82 - Altered mental status, unspecified SNOMED: 875643727 (2) Diabetes mellitus, new onset ICD Codes: E11.9 - Type 2 diabetes mellitus without complications SNOMED: 91855335, 480394853 (3) Anemia ICD Codes: D64.9 - Anemia, unspecified SNOMED: 631624901 (4) CARRIE (acute kidney injury) ICD Codes: N17.9 - Acute kidney failure, unspecified SNOMED: 4554098, 80754341 (5) Electrolyte imbalance ICD Codes: E87.8 - Other disorders of electrolyte and fluid balance, not elsewhere classified SNOMED: 061408567 (6) HTN (hypertension) ICD Codes: I10 - Essential (primary) hypertension SNOMED: 99485551 Status: progressing Assessment/Plan: dc planning check sugar syncope niddm azotemia labs improved Tylor Andujar MD Jan 31, 2021 21:34
[2021-02-01] VITALS: BP 116/89
[2021-02-01 04:00] VITALS: BP 133/80
[2021-02-01] MEDS: NovoLOG Insulin Flexpen SUBQ SCH ×7 (06:26→20:45)
--- NOTE | 2021-02-01 06:39 | General Progress Note ---
Subjective ROS Limited/Unobtainable: Yes Allergies: Coded Allergies: No Known Allergies (Unverified , 01/25/21) Subjective events noted glucose is higher after Glipizide DC'ed sitter at bedside Item Value Date Time Bedside Blood Glucose 254 mg/dl H 02/01/21 0626 Bedside Blood Glucose 176 mg/dl H 01/31/21 2102 Bedside Blood Glucose 205 mg/dl H 01/31/21 1643 Bedside Blood Glucose 291 mg/dl H 01/31/21 1145 Bedside Blood Glucose 188 mg/dl H 01/31/21 0839 Bedside Blood Glucose 188 mg/dl H 01/31/21 0630 Objective Last 24 Hour Vital Signs Date Time Temp Pulse Resp B/P (MAP) Pulse Ox O2 Delivery O2 Flow Rate FiO2 02/01/21 04:00 94 02/01/21 04:00 97.9 91 20 133/80 (97) 93 77 77 02/01/21 00:00 98.1 80 20 116/89 (98) 93 77 77 01/31/21 21:00 Room Air 01/31/21 20:00 100 01/31/21 20:00 98.0 80 20 130/65 (86) 93 88 88 01/31/21 16:00 91 01/31/21 16:00 98.1 88 18 142/93 (109) 93 88 88 01/31/21 12:00 105 01/31/21 12:00 98.1 97 18 116/78 (91) 93 94 94 01/31/21 09:00 Room Air 01/31/21 08:38 138/86 01/31/21 08:00 93 01/31/21 08:00 96.8 94 18 138/86 (103) 94 94 94 l Intake and Output 01/31/21 02/01/21 19:00 07:00 Intake Total 1540 ml Output Total 2000 ml 700 ml Balance -460 ml -700 ml Intake Oral 1540 ml Output Urine Total 2000 ml 700 ml # Voids 1 # Bowel Movements 1 Height (Feet): 6 Height (Inches): 0.00 Weight (Pounds): 180 General Appearance: no apparent distress Neck: normal alignment Cardiovascular: normal rate Respiratory/Chest: lungs clear Abdomen: normal bowel sounds Pelvis: normal external exam Objective Current Medications Medications (Trade) Dose Ordered Sig/Arslan Route PRN Reason Start Time Stop Time Status Last Admin Dose Admin Acetaminophen (Tylenol) 500 mg EVERY 6 HOURS PRN ORAL Mild Pain (Pain Scale 1-3) 01/25/21 21:15 02/24/21 21:14 01/26/21 20:21 Aspirin (ASA) 81 mg DAILY ORAL 01/26/21 10:30 03/12/21 10:29 01/31/21 08:38 Dextrose (Dextrose 50%) 25 ml Q30M PRN IV Hypoglycemia 01/29/21 18:00 04/29/21 17:59 Dextrose (Dextrose 50%) 50 ml Q30M PRN IV Hypoglycemia 01/29/21 18:00 04/29/21 17:59 Docusate Sodium (Colace) 100 mg THREE TIMES A DAY ORAL 01/26/21 13:00 02/25/21 12:59 01/31/21 18:03 Insulin Aspart (NovoLOG) BEFORE MEALS AND HS SUBQ 01/26/21 11:30 04/26/21 11:29 02/01/21 06:26 Insulin Aspart (NovoLOG) 6 units NOVOTIAC SUBQ 01/30/21 06:30 04/30/21 06:29 01/31/21 16:43 Insulin Detemir (Levemir) 20 units DAILY SUBQ 01/30/21 09:00 04/27/21 08:59 01/31/21 08:39 Lisinopril (ZestriL) 10 mg DAILY ORAL 01/27/21 09:00 02/26/21 08:59 01/31/21 08:38 Lorazepam (Ativan 2mg/ml 1ml) 1 mg Q6H PRN IVP For Anxiety 01/26/21 21:30 02/02/21 21:29 01/30/21 06:42 Mirtazapine (Remeron) 15 mg BEDTIME ORAL 01/27/21 21:00 04/26/21 21:29 01/31/21 21:04 Pantoprazole (Protonix) 40 mg EVERY 12 HOURS ORAL 01/26/21 21:00 02/25/21 20:59 01/31/21 21:04 Sitagliptin Phosphate (Januvia) 100 mg ACBREAKFAST ORAL 01/27/21 06:30 02/26/21 06:29 02/01/21 06:24 Assessment/Plan Problem List: (1) Diabetes mellitus, new onset ICD Codes: E11.9 - Type 2 diabetes mellitus without complications SNOMED: 78058841, 455548005 (2) Altered mental status ICD Codes: R41.82 - Altered mental status, unspecified SNOMED: 554591955 (3) Lactic acidosis ICD Codes: E87.2 - Acidosis SNOMED: 01635433 Status: progressing Assessment/Plan: avoid Metformin due to lactic acidosis increase Levemir 20 to 24 units daily increase Novolog 6 to 8 units ac tid continue Januvia 100 mg daily continue Novolog sliding scale ac hs Cholo Solano MD Feb 01, 2021 06:39
[2021-02-01 08:00] VITALS: BP 123/82
[2021-02-01] MEDS: Levemir Flexpen SUBQ SCH (09:09)
[2021-02-01] MEDS: Docusate 100mg cap ORAL SCH ×3 (09:10→18:16)
[2021-02-01] MEDS: Aspirin Baby 81mg ORAL SCH (09:11)
[2021-02-01] MEDS: Lisinopril 10mg tab ORAL SCH (09:11)
--- NOTE | 2021-02-01 11:09 | Nephrology Progress Note ---
Assessment/Plan Problem List: (1) CARRIE (acute kidney injury) (2) Anemia (3) Diabetes mellitus, new onset (4) Altered mental status (5) Electrolyte imbalance (6) HTN (hypertension) Assessment Renal failure Acute encephalopathy, likely metabolic Diabetes mellitus [id number] Electrolyte imbalance Hypertension Anemia Plan February 01: No labs drawn today. Medication list reviewed. Blood pressure is stable. Continue per consultants. Stable from renal standpoint of view. January 31: Labs reviewed. Renal parameters stable. Continue per consultants. January 30: No labs drawn today. Blood sugar is being managed by senior commissions analyst. Will check lab tomorrow. Medication list reviewed. January 29: Labs reviewed. Renal parameters stable. Blood sugar remains elevated. Continue per Endo. Blood pressure stable. January 28: No CHEM panel drawn today. Medication list reviewed. Blood pressure is stable. Blood sugar better controlled. Continue per toy consultant. Check lab tomorrow. January 27: Serum creatinine normalized. Electrolytes within normal range. Blood sugar remains high. Blood pressure appears more stable. Labs reviewed. Medication list reviewed. Continue per consultants. Brain MRI: IMPRESSION: MILD AGE-RELATED SENESCENT CHANGES. 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 TINY FOCI OF SUSCEPTIBILITY ARTIFACT IS NOTED IN THE ROBLES [place] REGION BILATERALLY WHICH COULD BE A TINY OLD PETECHIAL HEMORRHAGES. NO ACUTE INFARCT, HEMORRHAGE, MASS EFFECT OR SHIFT. MILD RIGHT MASTOID AIRSPACE DISEASE. Previously suggestions: Hydration with hypotonic solution Keep the blood pressure and blood sugar in check Anemia work-up Start aspirin, beta-blockers, gastric support PPI and stool softener Per orders Subjective ROS Limited/Unobtainable: No Constitutional: Reports: malaise Objective Objective Last 24 Hour Vital Signs Date Time Temp Pulse Resp B/P (MAP) Pulse Ox O2 Delivery O2 Flow Rate FiO2 02/01/21 09:11 123/82 02/01/21 09:00 Room Air 02/01/21 08:00 86 02/01/21 08:00 96.8 98 18 123/82 (96) 93 98 98 02/01/21 04:00 94 02/01/21 04:00 97.9 91 20 133/80 (97) 93 77 77 02/01/21 00:00 98.1 80 20 116/89 (98) 93 77 77 01/31/21 21:00 Room Air 01/31/21 20:00 100 01/31/21 20:00 98.0 80 20 130/65 (86) 93 88 88 01/31/21 16:00 91 01/31/21 16:00 98.1 88 18 142/93 (109) 93 88 88 01/31/21 12:00 105 01/31/21 12:00 98.1 97 18 116/78 (91) 93 94 94 Intake and Output 01/31/21 02/01/21 19:00 07:00 Intake Total 1540 ml Output Total 2000 ml 1100 ml Balance -460 ml -1100 ml Intake Oral 1540 ml Output Urine Total 2000 ml 1100 ml # Voids 2 # Bowel Movements 1 Current Medications Medications (Trade) Dose Ordered Sig/Arslan Route PRN Reason Start Time Stop Time Status Last Admin Dose Admin Acetaminophen (Tylenol) 500 mg EVERY 6 HOURS PRN ORAL Mild Pain (Pain Scale 1-3) 01/25/21 21:15 02/24/21 21:14 01/26/21 20:21 Aspirin (ASA) 81 mg DAILY ORAL 01/26/21 10:30 03/12/21 10:29 02/01/21 09:11 Dextrose (Dextrose 50%) 25 ml Q30M PRN IV Hypoglycemia 01/29/21 18:00 04/29/21 17:59 Dextrose (Dextrose 50%) 50 ml Q30M PRN IV Hypoglycemia 01/29/21 18:00 04/29/21 17:59 Docusate Sodium (Colace) 100 mg THREE TIMES A DAY ORAL 01/26/21 13:00 02/25/21 12:59 02/01/21 09:10 Insulin Aspart (NovoLOG) BEFORE MEALS AND HS SUBQ 01/26/21 11:30 04/26/21 11:29 02/01/21 06:26 Insulin Aspart (NovoLOG) 8 units NOVOTIAC SUBQ 02/01/21 11:50 04/30/21 06:29 Insulin Detemir (Levemir) 24 units DAILY SUBQ 02/01/21 09:00 04/27/21 08:59 02/01/21 09:09 Lisinopril (ZestriL) 10 mg DAILY ORAL 01/27/21 09:00 02/26/21 08:59 02/01/21 09:11 Lorazepam (Ativan 2mg/ml 1ml) 1 mg Q6H PRN IVP For Anxiety 01/26/21 21:30 02/02/21 21:29 01/30/21 06:42 Mirtazapine (Remeron) 15 mg BEDTIME ORAL 01/27/21 21:00 04/26/21 21:29 01/31/21 21:04 Pantoprazole (Protonix) 40 mg EVERY 12 HOURS ORAL 01/26/21 21:00 02/25/21 20:59 02/01/21 09:11 Sitagliptin Phosphate (Januvia) 100 mg ACBREAKFAST ORAL 01/27/21 06:30 02/26/21 06:29 02/01/21 06:24 Height (Feet): 6 Height (Inches): 0.00 Weight (Pounds): 180 General Appearance: no apparent distress, confused Cardiovascular: tachycardia Respiratory/Chest: decreased breath sounds Abdomen: soft Jorje Paz MD Feb 01, 2021 11:08
[2021-02-01 12:00] VITALS: BP 144/97
--- NOTE | 2021-02-01 13:45 | Infectious Diseases Prog Note ---
Assessment/Plan Assessment/Plan IMPRESSION: Positive blood culture with Staph Hominis/ contamination Likely has systemic inflammatory response, sepsis. Hypercalcemia. Acute renal failure, hypertension, uncontrolled diabetes mellitus. Has evidence of old lacunar infarct, altered mental status, Syncope &fall. RECOMMENDATION: Observe off antibiotic Subjective ROS Limited/Unobtainable: No Constitutional: Reports: no symptoms Respiratory: Reports: no symptoms Cardiovascular: Reports: no symptoms Gastrointestinal/Abdominal: Reports: no symptoms Allergies: Coded Allergies: No Known Allergies (Unverified , 01/25/21) Objective Last 24 Hour Vital Signs Date Time Temp Pulse Resp B/P (MAP) Pulse Ox O2 Delivery O2 Flow Rate FiO2 02/01/21 12:00 91 02/01/21 09:11 123/82 02/01/21 09:00 Room Air 02/01/21 08:00 86 02/01/21 08:00 96.8 98 18 123/82 (96) 93 98 98 02/01/21 04:00 94 02/01/21 04:00 97.9 91 20 133/80 (97) 93 77 77 02/01/21 00:00 98.1 80 20 116/89 (98) 93 77 77 01/31/21 21:00 Room Air 01/31/21 20:00 100 01/31/21 20:00 98.0 80 20 130/65 (86) 93 88 88 01/31/21 16:00 91 01/31/21 16:00 98.1 88 18 142/93 (109) 93 88 88 Height (Feet): 6 Height (Inches): 0.00 Weight (Pounds): 180 HEENT: mucous membranes moist Respiratory/Chest: lungs clear Cardiovascular: normal rate Abdomen: soft, non tender Extremities: no edema Neurologic/Psychiatric: alert, responsive Current Medications Medications (Trade) Dose Ordered Sig/Arslan Route PRN Reason Start Time Stop Time Status Last Admin Dose Admin Acetaminophen (Tylenol) 500 mg EVERY 6 HOURS PRN ORAL Mild Pain (Pain Scale 1-3) 01/25/21 21:15 02/24/21 21:14 01/26/21 20:21 Aspirin (ASA) 81 mg DAILY ORAL 01/26/21 10:30 03/12/21 10:29 02/01/21 09:11 Dextrose (Dextrose 50%) 25 ml Q30M PRN IV Hypoglycemia 01/29/21 18:00 6/10/21 17:59 Dextrose (Dextrose 50%) 50 ml Q30M PRN IV Hypoglycemia 01/29/21 18:00 04/29/21 17:59 Docusate Sodium (Colace) 100 mg THREE TIMES A DAY ORAL 01/26/21 13:00 02/25/21 12:59 02/01/21 12:25 Insulin Aspart (NovoLOG) BEFORE MEALS AND HS SUBQ 01/26/21 11:30 04/26/21 11:29 02/01/21 12:23 Insulin Aspart (NovoLOG) 8 units NOVOTIAC SUBQ 02/01/21 11:50 04/30/21 06:29 02/01/21 12:24 Insulin Detemir (Levemir) 24 units DAILY SUBQ 02/01/21 09:00 04/27/21 08:59 02/01/21 09:09 Lisinopril (ZestriL) 10 mg DAILY ORAL 01/27/21 09:00 02/26/21 08:59 02/01/21 09:11 Lorazepam (Ativan 2mg/ml 1ml) 1 mg Q6H PRN IVP For Anxiety 01/26/21 21:30 02/02/21 21:29 01/30/21 06:42 Mirtazapine (Remeron) 15 mg BEDTIME ORAL 01/27/21 21:00 04/26/21 21:29 01/31/21 21:04 Pantoprazole (Protonix) 40 mg EVERY 12 HOURS ORAL 01/26/21 21:00 02/25/21 20:59 02/01/21 09:11 Sitagliptin Phosphate (Januvia) 100 mg ACBREAKFAST ORAL 01/27/21 06:30 02/26/21 06:29 02/01/21 06:24 Octavio Allen MD Feb 01, 2021 13:45
--- NOTE | 2021-02-01 14:13 | Cardiac Electrophysiology PN ---
Assessment/Plan Assessment/Plan 1. Syncopal episodes. EKG does not show any acute ischemic changes. There is no evidence of bradycardia or heart block on the telemetry. The patient is not dehydrated. His glucose however was 414. Urine toxicology screen is negative. Ruled out for [place] protocol. Echo Nl EF 55%. FU by Neurology 2. Hypertension, on Lisinopril 10 mg po daily 3. Diabetes, on glipizide. 4. Azotemia, resolved 5. AMS FU Neuro DW RN Subjective Subjective On RA in SR. No CP. Objective Last 24 Hour Vital Signs Date Time Temp Pulse Resp B/P (MAP) Pulse Ox O2 Delivery O2 Flow Rate FiO2 02/01/21 12:00 91 02/01/21 09:11 123/82 02/01/21 09:00 Room Air 02/01/21 08:00 86 02/01/21 08:00 96.8 98 18 123/82 (96) 93 98 98 02/01/21 04:00 94 02/01/21 04:00 97.9 91 20 133/80 (97) 93 77 77 02/01/21 00:00 98.1 80 20 116/89 (98) 93 77 77 01/31/21 21:00 Room Air 01/31/21 20:00 100 01/31/21 20:00 98.0 80 20 130/65 (86) 93 88 88 01/31/21 16:00 91 01/31/21 16:00 98.1 88 18 142/93 (109) 93 88 88 Intake and Output 01/31/21 02/01/21 19:00 07:00 Intake Total 1540 ml Output Total 2000 ml 1100 ml Balance -460 ml -1100 ml Intake Oral 1540 ml Output Urine Total 2000 ml 1100 ml # Voids 2 # Bowel Movements 1 Objective HEAD AND NECK: No JVD. He has bruising around his left eye. LUNGS: Clear. CARDIOVASCULAR: Regular S1 and S2 with no gallop or murmur. ABDOMEN: Soft. EXTREMITIES: No pitting edema. Massimo Escobar MD Feb 01, 2021 14:13
[2021-02-01 16:00] VITALS: BP 137/93
[2021-02-01 20:00] VITALS: BP 155/88
[2021-02-01] MEDS: LORazepam Inj 2mg/ml 1ml IVP PRN (20:56)
--- NOTE | 2021-02-01 21:21 | General Progress Note ---
Subjective ROS Limited/Unobtainable: Yes Allergies: Coded Allergies: No Known Allergies (Unverified , 01/25/21) Objective Last 24 Hour Vital Signs Date Time Temp Pulse Resp B/P (MAP) Pulse Ox O2 Delivery O2 Flow Rate FiO2 02/01/21 20:56 100 20 155/88 95 02/01/21 16:00 99 02/01/21 16:00 99.9 93 18 137/93 (108) 96 93 93 02/01/21 12:00 91 02/01/21 12:00 97.9 92 18 144/97 (113) 98 92 92 02/01/21 09:11 123/82 02/01/21 09:00 Room Air 02/01/21 08:00 86 02/01/21 08:00 96.8 98 18 123/82 (96) 93 98 98 02/01/21 04:00 94 02/01/21 04:00 97.9 91 20 133/80 (97) 93 77 77 02/01/21 00:00 98.1 80 20 116/89 (98) 93 77 77 Intake and Output 01/31/21 02/01/21 19:00 07:00 Intake Total 1540 ml Output Total 2000 ml 1100 ml Balance -460 ml -1100 ml Intake Oral 1540 ml Output Urine Total 2000 ml 1100 ml # Voids 2 # Bowel Movements 1 Height (Feet): 6 Height (Inches): 0.00 Weight (Pounds): 180 Assessment/Plan Problem List: (1) Altered mental status ICD Codes: R41.82 - Altered mental status, unspecified SNOMED: 758467131 (2) Diabetes mellitus, new onset ICD Codes: E11.9 - Type 2 diabetes mellitus without complications SNOMED: 28488533, 426580904 (3) Anemia ICD Codes: D64.9 - Anemia, unspecified SNOMED: 241573252 (4) CARRIE (acute kidney injury) ICD Codes: N17.9 - Acute kidney failure, unspecified SNOMED: 5855903, 88520723 (5) Electrolyte imbalance ICD Codes: E87.8 - Other disorders of electrolyte and fluid balance, not elsewhere classified SNOMED: 252996068 (6) HTN (hypertension) ICD Codes: I10 - Essential (primary) hypertension SNOMED: 87627371 Status: progressing Assessment/Plan: dc in am afebrile no arrythmia syncope niddm azotemia labs improved Tylor Andujar MD Feb 01, 2021 21:21
[2021-02-02 00:01] VITALS: BP 149/80
[2021-02-02 04:06] VITALS: BP 128/79
[2021-02-02] MEDS: NovoLOG Insulin Flexpen SUBQ SCH ×4 (06:09→11:39)
--- NOTE | 2021-02-02 06:19 | General Progress Note ---
Subjective Allergies: Coded Allergies: No Known Allergies (Unverified , 01/25/21) All Systems: reviewed and negative except above Subjective events noted glucose improved sitter at bedside Item Value Date Time Bedside Blood Glucose 126 mg/dl H 02/02/21 0611 Bedside Blood Glucose 102 mg/dl 02/01/21 2134 Bedside Blood Glucose 143 mg/dl H 02/01/21 1634 Bedside Blood Glucose 180 mg/dl H 02/01/21 1224 Bedside Blood Glucose 254 mg/dl H 02/01/21 0909 Bedside Blood Glucose 254 mg/dl H 02/01/21 0640 Objective Last 24 Hour Vital Signs Date Time Temp Pulse Resp B/P (MAP) Pulse Ox O2 Delivery O2 Flow Rate FiO2 02/02/21 04:07 86 02/02/21 04:06 98.8 90 18 128/79 (95) 95 90 90 02/02/21 00:01 98.6 98 20 149/80 (103) 94 98 98 02/02/21 00:00 81 02/01/21 21:50 Room Air 02/01/21 21:26 100 20 155/88 95 02/01/21 20:56 100 20 155/88 95 02/01/21 20:00 100 02/01/21 20:00 98.6 100 20 155/88 (110) 95 100 100 02/01/21 16:00 99 02/01/21 16:00 99.9 93 18 137/93 (108) 96 93 93 02/01/21 12:00 91 02/01/21 12:00 97.9 92 18 144/97 (113) 98 92 92 02/01/21 09:11 123/82 02/01/21 09:00 Room Air 02/01/21 08:00 86 02/01/21 08:00 96.8 98 18 123/82 (96) 93 98 98 Intake and Output 02/01/21 02/02/21 19:00 07:00 Intake Total 700 ml 480 ml Output Total 1000 ml Balance 700 ml -520 ml Intake Oral 700 ml 480 ml Output Urine Total 1000 ml # Voids 4 2 Height (Feet): 6 Height (Inches): 0.00 Weight (Pounds): 180 General Appearance: no apparent distress Neck: normal alignment Cardiovascular: normal rate Respiratory/Chest: lungs clear Abdomen: normal bowel sounds Objective Current Medications Medications (Trade) Dose Ordered Sig/Arslan Route PRN Reason Start Time Stop Time Status Last Admin Dose Admin Acetaminophen (Tylenol) 500 mg EVERY 6 HOURS PRN ORAL Mild Pain (Pain Scale 1-3) 01/25/21 21:15 02/24/21 21:14 01/26/21 20:21 Aspirin (ASA) 81 mg DAILY ORAL 01/26/21 10:30 03/12/21 10:29 02/01/21 09:11 Dextrose (Dextrose 50%) 25 ml Q30M PRN IV Hypoglycemia 01/29/21 18:00 04/29/21 17:59 Dextrose (Dextrose 50%) 50 ml Q30M PRN IV Hypoglycemia 01/29/21 18:00 04/29/21 17:59 Docusate Sodium (Colace) 100 mg THREE TIMES A DAY ORAL 01/26/21 13:00 02/25/21 12:59 02/01/21 18:16 Insulin Aspart (NovoLOG) BEFORE MEALS AND HS SUBQ 01/26/21 11:30 04/26/21 11:29 02/01/21 16:33 Insulin Aspart (NovoLOG) 8 units NOVOTIAC SUBQ 02/01/21 11:50 04/30/21 06:29 02/01/21 16:34 Insulin Detemir (Levemir) 24 units DAILY SUBQ 02/01/21 09:00 04/27/21 08:59 02/01/21 09:09 Lisinopril (ZestriL) 10 mg DAILY ORAL 01/27/21 09:00 02/26/21 08:59 02/01/21 09:11 Lorazepam (Ativan 2mg/ml 1ml) 1 mg Q6H PRN IVP For Anxiety 01/26/21 21:30 02/02/21 21:29 02/01/21 20:56 Mirtazapine (Remeron) 15 mg BEDTIME ORAL 01/27/21 21:00 04/26/21 21:29 02/01/21 20:55 Pantoprazole (Protonix) 40 mg EVERY 12 HOURS ORAL 01/26/21 21:00 02/25/21 20:59 02/01/21 20:55 Sitagliptin Phosphate (Januvia) 100 mg ACBREAKFAST ORAL 01/27/21 06:30 02/26/21 06:29 02/02/21 06:04 Assessment/Plan Problem List: (1) Diabetes mellitus, new onset ICD Codes: E11.9 - Type 2 diabetes mellitus without complications SNOMED: 67214093, 757561730 (2) Altered mental status ICD Codes: R41.82 - Altered mental status, unspecified SNOMED: 955261771 (3) Lactic acidosis ICD Codes: E87.2 - Acidosis SNOMED: 70207093 Status: progressing Assessment/Plan: avoid Metformin due to lactic acidosis continue Levemir 24 units daily continue Novolog 8 units ac tid continue Januvia 100 mg daily continue Novolog sliding scale ac hs Cholo Solano MD Feb 02, 2021 06:19
[2021-02-02 08:00] VITALS: BP 134/96
[2021-02-02] MEDS: Lisinopril 10mg tab ORAL SCH (08:59)
[2021-02-02] MEDS: Docusate 100mg cap ORAL SCH (08:59)
[2021-02-02] MEDS: Aspirin Baby 81mg ORAL SCH (08:59)
[2021-02-02] MEDS: Levemir Flexpen SUBQ SCH (09:00)
--- NOTE | 2021-02-02 10:54 | Nephrology Progress Note ---
Assessment/Plan Problem List: (1) CARRIE (acute kidney injury) (2) Anemia (3) Diabetes mellitus, new onset (4) Altered mental status (5) Electrolyte imbalance (6) HTN (hypertension) Assessment Renal failure Acute encephalopathy, likely metabolic Diabetes mellitus [id number] Electrolyte imbalance Hypertension Anemia Plan February 02: No labs drawn yet. Vital signs stable. Meds reviewed. Continue as is. February 01: No labs drawn today. Medication list reviewed. Blood pressure is stable. Continue per consultants. Stable from renal standpoint of view. January 31: Labs reviewed. Renal parameters stable. Continue per consultants. January 30: No labs drawn today. Blood sugar is being managed by founder president and ceo. Will check lab tomorrow. Medication list reviewed. January 29: Labs reviewed. Renal parameters stable. Blood sugar remains elevated. Continue per Endo. Blood pressure stable. January 28: No CHEM panel drawn today. Medication list reviewed. Blood pressure is stable. Blood sugar better controlled. Continue per email production consultant. Check lab tomorrow. January 27: Serum creatinine normalized. Electrolytes within normal range. Blood sugar remains high. Blood pressure appears more stable. Labs reviewed. Medication list reviewed. Continue per consultants. Brain MRI: IMPRESSION: MILD AGE-RELATED SENESCENT CHANGES. 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 TINY FOCI OF SUSCEPTIBILITY ARTIFACT IS NOTED IN THE ROBLES [place] REGION BILATERALLY WHICH COULD BE A TINY OLD PETECHIAL HEMORRHAGES. NO ACUTE INFARCT, HEMORRHAGE, MASS EFFECT OR SHIFT. MILD RIGHT MASTOID AIRSPACE DISEASE. Previously suggestions: Hydration with hypotonic solution Keep the blood pressure and blood sugar in check Anemia work-up Start aspirin, beta-blockers, gastric support PPI and stool softener Per orders Subjective ROS Limited/Unobtainable: No Constitutional: Reports: malaise Objective Objective Last 24 Hour Vital Signs Date Time Temp Pulse Resp B/P (MAP) Pulse Ox O2 Delivery O2 Flow Rate FiO2 02/02/21 08:59 134/96 02/02/21 08:00 98.4 91 18 134/96 (109) 94 91 91 02/02/21 08:00 96 02/02/21 04:07 86 02/02/21 04:06 98.8 90 18 128/79 (95) 95 90 90 02/02/21 00:01 98.6 98 20 149/80 (103) 94 98 98 02/02/21 00:00 81 02/01/21 21:50 Room Air 02/01/21 21:26 100 20 155/88 95 02/01/21 20:56 100 20 155/88 95 02/01/21 20:00 100 02/01/21 20:00 98.6 100 20 155/88 (110) 95 100 100 02/01/21 16:00 99 02/01/21 16:00 99.9 93 18 137/93 (108) 96 93 93 02/01/21 12:00 91 02/01/21 12:00 97.9 92 18 144/97 (113) 98 92 92 Intake and Output 02/01/21 02/02/21 19:00 07:00 Intake Total 700 ml 480 ml Output Total 1000 ml Balance 700 ml -520 ml Intake Oral 700 ml 480 ml Output Urine Total 1000 ml # Voids 4 2 Current Medications Medications (Trade) Dose Ordered Sig/Arslan Route PRN Reason Start Time Stop Time Status Last Admin Dose Admin Acetaminophen (Tylenol) 500 mg EVERY 6 HOURS PRN ORAL Mild Pain (Pain Scale 1-3) 01/25/21 21:15 02/24/21 21:14 01/26/21 20:21 Aspirin (ASA) 81 mg DAILY ORAL 01/26/21 10:30 03/12/21 10:29 02/02/21 08:59 Dextrose (Dextrose 50%) 25 ml Q30M PRN IV Hypoglycemia 01/29/21 18:00 04/29/21 17:59 Dextrose (Dextrose 50%) 50 ml Q30M PRN IV Hypoglycemia 01/29/21 18:00 04/29/21 17:59 Docusate Sodium (Colace) 100 mg THREE TIMES A DAY ORAL 01/26/21 13:00 02/25/21 12:59 02/02/21 08:59 Insulin Aspart (NovoLOG) BEFORE MEALS AND HS SUBQ 01/26/21 11:30 04/26/21 11:29 02/01/21 16:33 Insulin Aspart (NovoLOG) 8 units NOVOTIAC SUBQ 02/01/21 11:50 04/30/21 06:29 02/01/21 16:34 Insulin Detemir (Levemir) 24 units DAILY SUBQ 02/01/21 09:00 04/27/21 08:59 02/02/21 09:00 Lisinopril (ZestriL) 10 mg DAILY ORAL 01/27/21 09:00 02/26/21 08:59 02/02/21 08:59 Lorazepam (Ativan 2mg/ml 1ml) 1 mg Q6H PRN IVP For Anxiety 01/26/21 21:30 02/02/21 21:29 02/01/21 20:56 Mirtazapine (Remeron) 15 mg BEDTIME ORAL 01/27/21 21:00 04/26/21 21:29 02/01/21 20:55 Pantoprazole (Protonix) 40 mg EVERY 12 HOURS ORAL 01/26/21 21:00 02/25/21 20:59 02/02/21 08:59 Sitagliptin Phosphate (Januvia) 100 mg ACBREAKFAST ORAL 01/27/21 06:30 02/26/21 06:29 02/02/21 06:04 No labs drawn yet Height (Feet): 6 Height (Inches): 0.00 Weight (Pounds): 180 General Appearance: no apparent distress Cardiovascular: tachycardia Respiratory/Chest: decreased breath sounds Abdomen: distended Jorje Paz MD Feb 02, 2021 10:54
--- NOTE | 2021-02-02 10:56 | Infectious Diseases Prog Note ---
Assessment/Plan Assessment/Plan IMPRESSION: Positive blood culture with Staph Hominis & GPR contamination Likely has systemic inflammatory response, sepsis. Hypercalcemia. Acute renal failure, hypertension, uncontrolled diabetes mellitus. Has evidence of old lacunar infarct, altered mental status, Syncope &fall. RECOMMENDATION: Observe off antibiotic Agree with discharge Case was D/W [facility] Subjective ROS Limited/Unobtainable: No Constitutional: Reports: no symptoms Respiratory: Reports: dry cough Cardiovascular: Reports: no symptoms Gastrointestinal/Abdominal: Reports: no symptoms Genitourinary: Reports: no symptoms Allergies: Coded Allergies: No Known Allergies (Unverified , 01/25/21) Objective Last 24 Hour Vital Signs Date Time Temp Pulse Resp B/P (MAP) Pulse Ox O2 Delivery O2 Flow Rate FiO2 02/02/21 08:59 134/96 02/02/21 08:00 98.4 91 18 134/96 (109) 94 91 91 02/02/21 08:00 96 02/02/21 04:07 86 02/02/21 04:06 98.8 90 18 128/79 (95) 95 90 90 02/02/21 00:01 98.6 98 20 149/80 (103) 94 98 98 02/02/21 00:00 81 02/01/21 21:50 Room Air 02/01/21 21:26 100 20 155/88 95 02/01/21 20:56 100 20 155/88 95 02/01/21 20:00 100 02/01/21 20:00 98.6 100 20 155/88 (110) 95 100 100 02/01/21 16:00 99 02/01/21 16:00 99.9 93 18 137/93 (108) 96 93 93 02/01/21 12:00 91 02/01/21 12:00 97.9 92 18 144/97 (113) 98 92 92 Height (Feet): 6 Height (Inches): 0.00 Weight (Pounds): 180 General Appearance: no acute distress HEENT: mucous membranes moist Respiratory/Chest: lungs clear Cardiovascular: normal rate Abdomen: soft, non tender Extremities: no edema Neurologic/Psychiatric: alert, responsive Current Medications Medications (Trade) Dose Ordered Sig/Arslan Route PRN Reason Start Time Stop Time Status Last Admin Dose Admin Acetaminophen (Tylenol) 500 mg EVERY 6 HOURS PRN ORAL Mild Pain (Pain Scale 1-3) 01/25/21 21:15 02/24/21 21:14 01/26/21 20:21 Aspirin (ASA) 81 mg DAILY ORAL 01/26/21 10:30 03/12/21 10:29 02/02/21 08:59 Dextrose (Dextrose 50%) 25 ml Q30M PRN IV Hypoglycemia 01/29/21 18:00 04/29/21 17:59 Dextrose (Dextrose 50%) 50 ml Q30M PRN IV Hypoglycemia 01/29/21 18:00 04/29/21 17:59 Docusate Sodium (Colace) 100 mg THREE TIMES A DAY ORAL 01/26/21 13:00 02/25/21 12:59 02/02/21 08:59 Insulin Aspart (NovoLOG) BEFORE MEALS AND HS SUBQ 01/26/21 11:30 04/26/21 11:29 02/01/21 16:33 Insulin Aspart (NovoLOG) 8 units NOVOTIAC SUBQ 02/01/21 11:50 04/30/21 06:29 02/01/21 16:34 Insulin Detemir (Levemir) 24 units DAILY SUBQ 02/01/21 09:00 04/27/21 08:59 02/02/21 09:00 Lisinopril (ZestriL) 10 mg DAILY ORAL 01/27/21 09:00 02/26/21 08:59 02/02/21 08:59 Lorazepam (Ativan 2mg/ml 1ml) 1 mg Q6H PRN IVP For Anxiety 01/26/21 21:30 02/02/21 21:29 02/01/21 20:56 Mirtazapine (Remeron) 15 mg BEDTIME ORAL 01/27/21 21:00 04/26/21 21:29 02/01/21 20:55 Pantoprazole (Protonix) 40 mg EVERY 12 HOURS ORAL 01/26/21 21:00 02/25/21 20:59 02/02/21 08:59 Sitagliptin Phosphate (Januvia) 100 mg ACBREAKFAST ORAL 01/27/21 06:30 02/26/21 06:29 02/02/21 06:04 Octavio Allen MD Feb 02, 2021 10:56
[2021-02-02 12:00] VITALS: BP 143/99
--- NOTE | 2021-02-02 12:18 | Cardiac Electrophysiology PN ---
Assessment/Plan Assessment/Plan 1. Syncopal episodes. EKG does not show any acute ischemic changes. There is no evidence of bradycardia or heart block on the telemetry. The patient is not dehydrated. His glucose however was 414. Urine toxicology screen is negative. Ruled out for MD protocol. Echo Nl EF 55%. FU by Neurology 2. Hypertension, on Lisinopril 10 mg po daily 3. Diabetes, on glipizide. 4. Azotemia, resolved 5. AMS FU Neuro DW RN DC home today with brothers Subjective Subjective On RA in SR. No CP or SOB. DC home today pending Objective Last 24 Hour Vital Signs Date Time Temp Pulse Resp B/P (MAP) Pulse Ox O2 Delivery O2 Flow Rate FiO2 02/02/21 09:00 Room Air 02/02/21 08:59 134/96 02/02/21 08:00 98.4 91 18 134/96 (109) 94 91 91 02/02/21 08:00 96 02/02/21 04:07 86 02/02/21 04:06 98.8 90 18 128/79 (95) 95 90 90 02/02/21 00:01 98.6 98 20 149/80 (103) 94 98 98 02/02/21 00:00 81 02/01/21 21:50 Room Air 02/01/21 21:26 100 20 155/88 95 02/01/21 20:56 100 20 155/88 95 02/01/21 20:00 100 02/01/21 20:00 98.6 100 20 155/88 (110) 95 100 100 02/01/21 16:00 99 02/01/21 16:00 99.9 93 18 137/93 (108) 96 93 93 Intake and Output 02/01/21 02/02/21 19:00 07:00 Intake Total 700 ml 480 ml Output Total 1000 ml Balance 700 ml -520 ml Intake Oral 700 ml 480 ml Output Urine Total 1000 ml # Voids 4 2 Objective HEAD AND NECK: No JVD. He has bruising around his left eye. LUNGS: Clear. CARDIOVASCULAR: Regular S1 and S2 with no gallop or murmur. ABDOMEN: Soft. EXTREMITIES: No pitting edema. Massimo Escobar MD Feb 02, 2021 12:18
--- NOTE | 2021-02-02 12:47 | Neurology Progress Note ---
Interim History Interim History ROS Limited/Unobtainable: No Events: discharge today Objective Physical Exam Last Vital Signs Date Time Temp Pulse Resp B/P (MAP) Pulse Ox O2 Delivery O2 Flow Rate FiO2 02/02/21 12:00 105 02/02/21 12:00 98.4 18 143/99 (114) 94 02/02/21 09:00 Room Air 01/25/21 16:48 2.0 01/25/21 15:00 89 Neurologic Exam Objective PE Vital signs stable Left Orbit abrasion General: No acute distress calm and cooperative Neuro: Awake Alert to himself disoriented to place and time No insight to situation, Comprehension: not intact. Language parameters intact. Cranial nerves II-XII tested PERRLA, No nystagmus with gaze. No facial droop or asymmetry noted Tongue is midline. Hearing intact Motor: No involuntary movements, Bilat upper extremities 3/5, lower extremities 3/5 Sensation intact. gait not assessed Impression/Recommendations Status: progressing Diagnostic Impression LAB Reviewed IMAGING: CT Head: No evidence of acute intracranial hemorrhage, mass effect or cortical edema. MRI recommended for more sensitive evaluation as clinically indicated. Atrophy and nonspecific periventricular hypoattenuation suggestive of chronic ischemic microvascular changes. Chronic appearing lacunar infarct in the left superior caudate. MRI Brain: MILD AGE-RELATED SENESCENT CHANGES. 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 TINY FOCI OF SUSCEPTIBILITY ARTIFACT IS NOTED IN THE ROBLES RADIATA REGION BILATERALLY WHICH COULD BE A TINY OLD PETECHIAL HEMORRHAGES. NO ACUTE INFARCT, HEMORRHAGE, MASS EFFECT OR SHIFT.MILD RIGHT MASTOID AIRSPACE DISEASE. ASSESSMENT AND REC'S 1. Old lacunar Infarct --> CT head noted, MRI Brain and MRA Head and Neck -ordered 2. 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 3. Fall --> unknown etiology, order pt and ot pt doing well 4. Questionable Syncope --> was found down at the grocery store. Cards rec's appreciated --> carotid us no stenosis 5. Diabetes Thank you for allowing us to participate in patient's care, plan of care was discussed with Dr. Jeff White who agrees. Delores Rivera NP Feb 02, 2021 12:47
--- NOTE | 2021-02-03 12:46 | Discharge Summary ---
Discharge Summary Discharge Summary _ Date of admission: 01/25/2021 Date of discharge: 02/02/[address] Andujar History of Present Illness and Brief Hospital Course Mr. Humphreys is a 60-year-old male who presented to ED from a grocery store status post fall. Patient was alert and oriented x2 on arrival. Laboratory studies demonstrated hyperglycemia with mild lactic acidosis. Urine was negative for infection. Urine drug screen was negative. CT angiogram of the chest was negative for pulmonary embolism. CT of brain showed no acute hemorrhage or infarct. Chest x-ray showed no acute infiltrate. Patient was admitted to the hospital for further management. A chronic appearing lacunar infarct in the left superior caudate was identified on head CT. Apparently, patient had a traumatic brain injury in adolescent age and was alert and oriented x2 at baseline according to his brother. Patient was identified to have subcentimeter lung nodules on CT scanning. Based on the size, patient was recommended to have a follow-up CT of chest in 6-12 months per Fleischner Society guidelines. Patient was also educated on smoking cessation given his history of smoking. Patient had a positive blood culture. He likely had systemic inflammatory response. Patient was on a short course of antibiotic. He was also worked up for his syncopal episode. EKG did not show any acute ischemic changes. There was no evidence of bradycardia or heart block. The patient was not dehydrated. Urine toxicology screen was negative. 2D echocardiogram revealed ejection fraction of 55%. Patient's blood glucose level was monitored and was given insulin. Patient's blood glucose was in better control by the time of his discharge. Patient was medically stable for discharge and was discharged home on 02/02/2021. Consultants: Cardiology Dr. Escobar Infectious disease Dr. Allen Endocrinology Dr. Solano Neurology Delores Nicole, MELODY Pulmonology Dr. Chen Nephrology Dr. Correa Discharge Condition Stable Discharge Activity As tolerated Discharge Diet Diabetic diet Final diagnoses Syncopal episode, s/p fall anemia Electrolyte imbalance Hypertension Diabetes mellitus, uncontrolled Azotemia Bacteremia Hypercalcemia Acute renal failure Chronic lacunar infarct Mentally delayed and confused at baseline Sepsis Subcentimeter lung nodules I have been assigned to dictate discharge summary for this account. Stephane Palacios Feb 03, 2021 12:46
--- NOTE | 2021-02-03 16:42 | Cardiology Report ---
APPROVED REPORT EKG Measurement Heart [id number] <Conclusion> Sinus tachycardia Otherwise normal ECG
== END 2021-02-02 13:10 | disposition home or self-care (01) | DRG 720 ==
LOC: EDBD 14:19 → EMR 15:44 → EDBEDREQ 17:18 → 2E 17:28 → EDBEDREQ 18:39 → 2E 20:05
DX: A41.9 Sepsis, unspecified organism (principal); G93.41 Metabolic encephalopathy; N17.9 Acute kidney failure, unspecified; E11.65 Type 2 diabetes mellitus with hyperglycemia; E83.52 Hypercalcemia; E86.0 Dehydration; I10 Essential (primary) hypertension; D64.9 Anemia, unspecified; K21.9 Gastro-esophageal reflux disease without esophagitis; I25.10 Atherosclerotic heart disease of native coronary artery without angina pectoris; Z87.820 Personal history of traumatic brain injury; J43.9 Emphysema, unspecified; R06.03 Acute respiratory distress; R09.02 Hypoxemia; Z87.891 Personal history of nicotine dependence; Z79.84 Long term (current) use of oral hypoglycemic drugs; R55 Syncope and collapse; S00.212A Abrasion of left eyelid and periocular area, initial encounter; X58.XXXA Exposure to other specified factors, initial encounter
CPT/HCPCS: 36415; 70450; 70544; 70551; 71045; 71275; 80053; 80061; 80202; 80307; 81003; 82306; 82550; 82607; 82728; 82746; 82962; 82977; 83036; 83540; 83550; 83605; 83735; 83880; 84100; 84443; 84484; 84550; 85025; 85610; 85730; 86140; 86850; 86900; 86901; 87040; 87181; 93005; 93306; 93880; 96361; 96374; 99285; G0480; J1815; J7030; S5561